=== PATIENT | female | born 1960 | race Caucasian/White ===

== ENCOUNTER 2016-11-20 19:28 | Emergency (ER) | payer MEDICARE, OTHER ==
[2016-11-20 19:34] VITALS: RESP 18; TEMP 98.8
[2016-11-20] MEDS ORDERED: IPRATROPIUM 0.5 MG/2.5 ML NEBU INHALATION STA (19:48)
[2016-11-20] MEDS ORDERED: predniSONE 20 MG TAB PO STA (19:48)
[2016-11-20] MEDS ORDERED: ALBUTEROL NEBULIZED 2.5 MG/3 ML INHALATION STA (19:48)
[2016-11-20] MEDS ORDERED: Acetaminophen-Codeine 300-30mg TAB PO STA (19:52)
--- NOTE | 2016-11-20 19:52 | ED ---
General Adult HPI - General Chief complaint: Shortness of Breath Stated complaint: SOB Time Seen by Provider: 11/20/16 19:40 Source: patient, RN notes reviewed, old records reviewed Mode of arrival: wheelchair Limitations: no limitations - History of Present Illness Initial comments: This is a 56-year-old female to the ER with history of COPD, patient had recent hospital admission a month ago for COPD exacerbation. Patient states she was feeling fine until last night and the night before and basely getting worse over last 2 days. Her exercise tolerance has gone down and despite her home nebulizers. Patient denies any other hmxa-svv-iijorad treatments. Patient denies any fevers no chest pain. Denies sick contacts or travel history. - Related Data Home Medications Medication Instructions Recorded Confirmed FLUoxetine HCL [PROzac] 20 mg PO QAM 05/10/14 11/20/16 Gabapentin [Gabapentin] 800 mg PO BID 05/10/14 11/20/16 Hydrocodone/Acetaminophen [[place] 1 tab PO QID PRN 08/07/16 11/20/16 10-325] Albuterol Nebulized [Ventolin 2.5 mg INHALATION RT-QID PRN 11/20/16 11/20/16 Nebulized] Albuterol Sulfate [Proair Hfa] 1 - 2 puff INHALATION RT-QID PRN 11/20/16 Biotin 5 mg PO DAILY 11/20/16 11/20/16 Dextroamphetamine/Amphetamine 20 mg PO BID 11/20/16 11/20/16 [Adderall] Doxepin HCl [SINEquan] 50 mg PO HS 11/20/16 11/20/16 Multivitamins, Thera [Multivitamin] 1 tab PO DAILY 11/20/16 11/20/16 Allergies Allergy/AdvReac Type Severity Reaction Status Date / Time shellfish derived Allergy Swelling Verified 11/20/16 19:48 Review of Systems ROS Statement: Those systems with pertinent positive or pertinent negative responses have been documented in the HPI. ROS Other: All systems not noted in ROS Statement are negative. Past Medical History Past Medical History: Asthma, COPD, Fibromyalgia Additional Past Medical History / Comment(s): IRREGULAR VAGINAL BLEEDING, STEROIDS WITHIN LAST 3 MOS, neck pain History of Any Multi-Drug Resistant Organisms: MRSA Date of last positivie culture/infection: UNK MDRO Source:: Left axilla Past Surgical History: Orthopedic Surgery, Tonsillectomy, Tubal Ligation Additional Past Surgical History / Comment(s): TOVA SHOULDER,TOVA WRISTS,LT COLLAR BONE Past Anesthesia/Blood Transfusion Reactions: No Reported Reaction Past Psychological History: ADD/ADHD, Anxiety, Depression Smoking Status: Never smoker Past Alcohol Use History: None Reported Past Drug Use History: None Reported - Past Family History Father Family Medical History: Cancer Additional Family Medical History / Comment(s): LUNG General Exam Limitations: no limitations General appearance: alert, in no apparent distress, anxious Head exam: Present: atraumatic, normocephalic, normal inspection Eye exam: Present: normal appearance, PERRL, EOMI. Absent: scleral icterus, conjunctival injection, periorbital swelling ENT exam: Present: normal exam, mucous membranes moist Neck exam: Present: normal inspection. Absent: tenderness, meningismus, lymphadenopathy Respiratory exam: Present: normal lung sounds bilaterally, wheezes, decreased breath sounds, prolonged expiratory. Absent: respiratory distress, rales, rhonchi, stridor Cardiovascular Exam: Present: regular rate, normal rhythm, normal heart sounds. Absent: systolic murmur, diastolic murmur, rubs, gallop, clicks GI/Abdominal exam: Present: soft, normal bowel sounds. Absent: distended, tenderness, guarding, rebound, rigid Extremities exam: Present: normal inspection, full ROM, normal capillary refill. Absent: tenderness, pedal edema, joint swelling, calf tenderness Back exam: Present: normal inspection Neurological exam: Present: alert, oriented X3, CN II-XII intact Psychiatric exam: Present: normal affect, normal mood Skin exam: Present: warm, dry, intact, normal color. Absent: rash Course Vital Signs 11/20/16 11/20/16 11/20/16 19:32 20:10 20:24 Temperature 98.8 F Pulse Rate 86 78 78 Respiratory 18 Rate Blood Pressure 136/65 O2 Sat by Pulse 99 Oximetry - Reevaluation(s) Reevaluation #1: 11/20/16 20:51 At this point patient's symptoms of shortness of breath or much improved after prolonged breathing treatment Medical Decision Making - Medical Decision Making 56 female year for evaluation of shortness of breath, COPD exacerbation, patient is feeling better x-ray is negative for pneumonia, will be treated for COPD exacerbation steroids as an outpatient, return if symptoms worsen - Radiology Data Radiology results: report reviewed (Chest x-ray is negative for acute disease), image reviewed Disposition Clinical Impression: Acute exacerbation of chronic obstructive airways disease Disposition: HOME SELF-CARE Condition: Good Instructions: Chronic Bronchitis (ED), Acute Bronchitis (ED) Referrals: Eric Loo DO [Primary Care Provider] - 1-2 days
--- NOTE | 2016-11-20 20:05 | XR ---
EXAMINATION TYPE: XR chest 2V DATE OF EXAM: 11/20/2016 8:00 PM COMPARISON: 12/28/2015 HISTORY: Short of breath TECHNIQUE: Frontal and lateral views of the chest are obtained. FINDINGS: Heart and mediastinum are normal. Lungs are clear. Diaphragm is normal. Bony thorax is int act. Pulmonary vascularity is normal. IMPRESSION: Normal chest. No change.
[2016-11-20 21:11] VITALS: BP 113/65
[2016-11-20 21:14] VITALS: PULSE 84
== END 2016-11-20 21:20 | disposition home or self-care (01) ==
LOC: EC 19:28
DX: J44.1 Chronic obstructive pulmonary disease with (acute) exacerbation (principal); J20.9 Acute bronchitis, unspecified; J45.909 Unspecified asthma, uncomplicated; M79.7 Fibromyalgia; F90.9 Attention-deficit hyperactivity disorder, unspecified type; F32.9 Major depressive disorder, single episode, unspecified; F41.9 Anxiety disorder, unspecified; Z79.899 Other long term (current) drug therapy; Z91.013 Allergy to seafood
CPT/HCPCS: 94644; 71020; 99285; J7512

== ENCOUNTER 2016-12-23 18:29 | Inpatient (IN) | payer MEDICARE, OTHER ==
[2016-12-23] MEDS ORDERED: methylPREDNISolone SOD SUCCI 125 MG/2 ML VIAL IV STA (18:46)
--- NOTE | 2016-12-23 18:53 | ED ---
General Adult HPI <RubénRonald - Last Filed: 12/23/16 19:46> - General Source: patient, RN notes reviewed, old records reviewed Mode of arrival: EMS Limitations: no limitations <Tawanda Rothman - Last Filed: 12/23/16 19:48> - General Chief complaint: Shortness of Breath Stated complaint: ANATOLIY Time Seen by Provider: 12/23/16 18:33 - History of Present Illness Initial comments: Patient 56-year-old female with significant past medical history for COPD, who presents emergency room today by EMS, with chief complaint of increased shortness breath with cough congestion over the last few days. Does admit to positive sputum production as been yellow in color. Patient does admit that she 's been using breathing treatments at home. Patient was given breathing treatment by EMS. States treatments have been helping some. States does not last very long. Patient states she's had multiple treatments today with little relief of the symptoms. Patient denies any other complaints or associated symptoms. Patient denies any recent chills, chest pain, back pain, abdominal pain, nausea or vomiting, numbness or tingling, dysuria or hematuria, constipation or diarrhea, headaches or visual changes, or any other complaints. (Tawanda Rothman) - Related Data Home Medications Medication Instructions Recorded Confirmed Gabapentin [Gabapentin] 800 mg PO TID 05/10/14 12/23/16 Hydrocodone/Acetaminophen [[place] 1 tab PO QID PRN 08/07/16 12/23/16 10-325] Albuterol Nebulized [Ventolin 2.5 mg INHALATION RT-QID PRN 11/20/16 12/23/16 Nebulized] Albuterol Sulfate [Proair Hfa] 1 - 2 puff INHALATION RT-QID PRN 11/20/16 Biotin 5 mg PO DAILY 11/20/16 12/23/16 Dextroamphetamine/Amphetamine 20 mg PO BID 11/20/16 12/23/16 [Adderall] Doxepin HCl [SINEquan] 50 mg PO HS 11/20/16 12/23/16 FLUoxetine HCL [PROzac] 40 mg PO DAILY 12/23/16 12/23/16 Multivits-Min/Iron/FA/Lutein 1 tab PO DAILY 12/23/16 12/23/16 [Centrum Silver Women Tablet] Allergies Allergy/AdvReac Type Severity Reaction Status Date / Time shellfish derived Allergy Itching Verified 12/23/16 18:53 shrimp AdvReac Itching Verified 12/23/16 18:53 Review of Systems ROS Other: All systems not noted in ROS Statement are negative. <MontanaRonald - Last Filed: 12/23/16 19:46> ROS Other: All systems not noted in ROS Statement are negative. <Tawanda Rothman - Last Filed: 12/23/16 19:48> ROS Statement: Those systems with pertinent positive or pertinent negative responses have been documented in the HPI. Past Medical History Past Medical History: Asthma, COPD, Fibromyalgia Additional Past Medical History / Comment(s): IRREGULAR VAGINAL BLEEDING, STEROIDS WITHIN LAST 3 MOS, neck pain History of Any Multi-Drug Resistant Organisms: MRSA Date of last positivie culture/infection: UNK MDRO Source:: Left axilla Past Surgical History: Orthopedic Surgery, Tonsillectomy, Tubal Ligation Additional Past Surgical History / Comment(s): TOVA SHOULDER,TOVA WRISTS,LT COLLAR BONE Past Anesthesia/Blood Transfusion Reactions: No Reported Reaction Past Psychological History: ADD/ADHD, Anxiety, Depression Smoking Status: Never smoker Past Alcohol Use History: None Reported Past Drug Use History: None Reported - Past Family History Father Family Medical History: Cancer Additional Family Medical History / Comment(s): LUNG <RothmanTawanda - Last Filed: 12/23/16 19:48> General Exam <Ronald Montana - Last Filed: 12/23/16 19:46> Limitations: no limitations <Tawanda Rothman - Last Filed: 12/23/16 19:48> - General Exam Comments Initial Comments: General: The patient is awake and alert, in no distress, and does not appear acutely ill. Eye: Pupils are equal, round and reactive to light, extra-ocular movements are intact. No nystagmus. There is normal conjunctiva bilaterally. No signs of icterus. Ears, nose, mouth and throat: There are moist mucous membranes and no oral lesions. Neck: The neck is supple, there is no tenderness or JVD. Cardiovascular: There is a regular rate and rhythm. No murmur, rub or gallop is appreciated. Respiratory: Bilateral expiratory wheeze with scattered rhonchi. respirations are non-labored, breath sounds are equal. No wheezes, stridor, rales, or rhonchi. Gastrointestinal: Soft, non-distended, non-tender abdomen without masses or organomegaly noted. There is no rebound or guarding present. No CVA tenderness. Bowel sounds are unremarkable. Musculoskeletal: Normal ROM, no tenderness. Strength 5/5. Sensation intact. Pulses equal bilaterally 2+. Neurological: A&O x 3. CN II-XII intact, There are no obvious motor or sensory deficits. Coordination appears grossly intact. Speech is normal. Skin: Skin is warm and dry and no rashes or lesions are noted. Psychiatric: Cooperative, appropriate mood & affect, normal judgment. (Tawanda Rothman) Course <Ronald Montana - Last Filed: 12/23/16 19:46> <Tawanda Rothman - Last Filed: 12/23/16 19:48> Vital Signs 12/23/16 18:30 Temperature 101.3 F H Pulse Rate 88 Respiratory 16 Rate Blood Pressure 140/76 O2 Sat by Pulse 97 Oximetry - Reevaluation(s) Reevaluation #1: 12/23/16 19:46 Patient reevaluated by myself, Dr. Montana. Patient still has wheezing despite 2 treatments. Patient does not meet sepsis criteria as source of infection is not identifiable at this time. Case discussed in detail with Dr. funes, who will admit for Dr. Loo. (Ronald Montana) Medical Decision Making - Lab Data Result diagrams: 12/23/16 18:55 12/23/16 18:55 <Ronald Montana - Last Filed: 12/23/16 19:46> - Lab Data Result diagrams: 12/23/16 18:55 12/23/16 18:55 <Tawanda Rothman - Last Filed: 12/23/16 19:48> - Lab Data Lab Results 12/23/16 12/23/16 12/23/16 Range/Units 18:55 18:55 18:55 WBC 5.0 (3.8-10.6) k/uL RBC 4.33 (3.80-5.40) m/uL Hgb 12.3 (11.4-16.0) gm/dL Hct 37.6 (34.0-46.0) % MCV 86.9 (80.0-100.0) fL MCH 28.5 (25.0-35.0) pg MCHC 32.8 (31.0-37.0) g/dL RDW 13.5 (11.5-15.5) % Plt Count 221 (150-450) k/uL Neutrophils % 56 % Lymphocytes % 25 % Monocytes % 6 % Eosinophils % 9 % Basophils % 0 % Neutrophils # 2.8 (1.3-7.7) k/uL Lymphocytes # 1.2 (1.0-4.8) k/uL Monocytes # 0.3 (0-1.0) k/uL Eosinophils # 0.5 (0-0.7) k/uL Basophils # 0.0 (0-0.2) k/uL Sodium 140 (137-145) mmol/L Potassium 3.5 (3.5-5.1) mmol/L Chloride 102 (98-107) mmol/L Carbon Dioxide 27 (22-30) mmol/L Anion Gap 11 mmol/L BUN 15 (7-17) mg/dL Creatinine 0.79 (0.52-1.04) mg/dL Est GFR (MDRD) Af Amer >60 (>60 ml/min/1.73 sqM) Est GFR (MDRD) Non-Af >60 (>60 ml/min/1.73 sqM) Glucose 96 (74-99) mg/dL Plasma Lactic Acid Gurvinder (0.7-2.0) mmol/L Calcium 9.1 (8.4-10.2) mg/dL Total Bilirubin 0.5 (0.2-1.3) mg/dL AST 26 (14-36) U/L ALT 26 (9-52) U/L Alkaline Phosphatase 106 (38-126) U/L Total Protein 7.2 (6.3-8.2) g/dL Albumin 4.0 (3.5-5.0) g/dL Influenza Type A RNA Not Detected (Not Detectd) Influenza Type B (PCR) Not Detected (Not Detectd) 12/23/16 Range/Units 18:55 WBC (3.8-10.6) k/uL RBC (3.80-5.40) m/uL Hgb (11.4-16.0) gm/dL Hct (34.0-46.0) % MCV (80.0-100.0) fL MCH (25.0-35.0) pg MCHC (31.0-37.0) g/dL RDW (11.5-15.5) % Plt Count (150-450) k/uL Neutrophils % % Lymphocytes % % Monocytes % % Eosinophils % % Basophils % % Neutrophils # (1.3-7.7) k/uL Lymphocytes # (1.0-4.8) k/uL Monocytes # (0-1.0) k/uL Eosinophils # (0-0.7) k/uL Basophils # (0-0.2) k/uL Sodium (137-145) mmol/L Potassium (3.5-5.1) mmol/L Chloride (98-107) mmol/L Carbon Dioxide (22-30) mmol/L Anion Gap mmol/L BUN (7-17) mg/dL Creatinine (0.52-1.04) mg/dL Est GFR (MDRD) Af Amer (>60 ml/min/1.73 sqM) Est GFR (MDRD) Non-Af (>60 ml/min/1.73 sqM) Glucose (74-99) mg/dL Plasma Lactic Acid Gurvinder 0.9 (0.7-2.0) mmol/L Calcium (8.4-10.2) mg/dL Total Bilirubin (0.2-1.3) mg/dL AST (14-36) U/L ALT (9-52) U/L Alkaline Phosphatase (38-126) U/L Total Protein (6.3-8.2) g/dL Albumin (3.5-5.0) g/dL Influenza Type A RNA (Not Detectd) Influenza Type B (PCR) (Not Detectd) Disposition <Ronald Montana - Last Filed: 12/23/16 19:46> Time of Disposition: 19:41 <Tawanda Rothman - Last Filed: 12/23/16 19:48> Clinical Impression: COPD exacerbation Disposition: ADMITTED IP TO THIS HOSP Condition: Stable
[2016-12-23] MEDS ORDERED: IPRATROPIUM-ALBUTEROL 3 ML NEB INHALATION STA (19:02)
[2016-12-23 19:10] LABS: Basophils % (A) 0 %; CH 28.1; CHCM 32.5; Eosinophils # (A) 0.5 k/uL (0-0.7); Eosinophils % (A) 9 %; HCT 37.6 % (34.0-46.0); HGB 12.3 gm/dL (11.4-16.0); Luc # (Auto) 0.22; Luc % (Auto) 4; Lymphocytes # (A) 1.2 k/uL (1.0-4.8); Lymphocytes % (A) 25 %; MCH 28.5 pg (25.0-35.0); MCHC 32.8 g/dL (31.0-37.0); MCV 86.9 fL (80.0-100.0); Mean Platelet Volume 6.8; Monocytes # (A) 0.3 k/uL (0-1.0); Monocytes % (A) 6 %; Neutrophils # (A) 2.8 k/uL (1.3-7.7); Neutrophils % (A) 56 %; RBC 4.33 m/uL (3.80-5.40); RDW 13.5 % (11.5-15.5); WBC (Perox) 5.14
[2016-12-23 19:17] LABS: ALT 26 U/L (9-52); AST 26 U/L (14-36); Alkaline Phosphatase 106 U/L (38-126); Anion Gap 11 mmol/L; Blood Urea Nitrogen 15 mg/dL (7-17); Calcium 9.1 mg/dL (8.4-10.2); Carbon Dioxide 27 mmol/L (22-30); Chloride 102 mmol/L (98-107); Glucose 96 mg/dL (74-99); Non-African American GFR(MDRD) >60 (>60 ml/min/1.73 sqM); Potassium 3.5 mmol/L (3.5-5.1); Sodium 140 mmol/L (137-145); Total Bilirubin 0.5 mg/dL (0.2-1.3); Total Protein 7.2 g/dL (6.3-8.2)
--- NOTE | 2016-12-23 19:18 | XR ---
EXAMINATION TYPE: XR chest 2V DATE OF EXAM: 12/23/2016 7:13 PM COMPARISON: 11/20/16 HISTORY: Shortness of breath TECHNIQUE: Frontal and lateral views of the chest are obtained. FINDINGS: Scattered senescent parenchymal changes noted. Hyperinflation compatible with COPD. No evidence for infiltrate. No evidence for atelectasis. Heart size is stable. Mediastinal structures are stable and grossly unremarkable. No evidence for hilar prominence. Degenerative changes dorsal spine. IMPRESSION: 1. No evidence for acute pulmonary disease.
[2016-12-23] MEDS ORDERED: ACETAMINOPHEN TAB 500 MG TAB PO STA (19:22)
[2016-12-23] MEDS ORDERED: SODIUM CHLORIDE 0.9% 1,000 ML IV ONE (19:45)
[2016-12-23 20:12] LABS: Appearance,Urine Clear (Clear); Bacteria,Urine Occasional /hpf; Bilirubin,Urine Negative (Negative); Glucose,Urine (UA) Negative (Negative); Ketones,Urine Negative (Negative); Leukocyte Esterase,Urine Large (Negative); Mucus,Urine Rare /hpf; Nitrite,Urine Negative (Negative); Particle Count 4196; Protein,Urine Trace (Negative); RBC,Urine 5 /hpf (0-5); Specific Gravity,Urine 1.025 (1.001-1.035); Squamous Epithelial Cell,Urine 1 /hpf (0-4); UA Billing (MACRO vs. MICRO) MICRO; Urobilinogen,Urine <2.0 mg/dL (<2.0); WBC,Urine 58 /hpf (0-5)
[2016-12-23 22:06] VITALS: BMI 25.8
[2016-12-23] MEDS: GABAPENTIN 400 MG CAP PO SCH (23:24)
[2016-12-23] MEDS: HYDROcodone/APAP 10-325MG 1 EACH TAB PO PRN (23:24)
[2016-12-23] MEDS: MULTIVITAMINS, THERA 1 EACH TAB PO SCH (23:25)
[2016-12-23] MEDS: DOXEPIN 25 MG CAP PO SCH (23:25)
[2016-12-23] MEDS: LEVOFLOXACIN 500 MG TAB PO SCH (23:58)
[2016-12-24] MEDS: methylPREDNISolone SOD SUCCI 125 MG/2 ML VIAL IV SCH ×4 (00:01→16:59)
[2016-12-24] MEDS: IPRATROPIUM-ALBUTEROL 3 ML NEB INHALATION PRN ×2 (00:56→11:23)
[2016-12-24] MEDS: HYDROcodone/APAP 10-325MG 1 EACH TAB PO PRN ×3 (05:35→19:52)
[2016-12-24] MEDS: BENZOCAINE/MENTHOL LOZENG 1 EACH LOZENGE MUCOUS MEM PRN (06:16)
[2016-12-24] MEDS: MULTIVITAMINS, THERA 1 EACH TAB PO SCH (08:31)
[2016-12-24] MEDS: GABAPENTIN 400 MG CAP PO SCH ×3 (08:32→22:27)
[2016-12-24] MEDS: FLUoxetine HCL 20 MG CAP PO SCH (08:32)
[2016-12-24] MEDS ORDERED: NON-FORMULARY DRUG (Biotin [Biotin] 5 MG) PO SCH (09:00)
[2016-12-24] MEDS ORDERED: NON-FORMULARY DRUG (Dextroamphetamine/Amphetamine [Adderall] 20 MG) PO SCH (09:00)
[2016-12-24] MEDS ORDERED: IPRATROPIUM-ALBUTEROL 3 ML NEB INHALATION PRN (13:24)
--- NOTE | 2016-12-24 13:25 | P.CNPUL ---
History of Present Illness Consult date: 12/24/16 Requesting physician: Italo Mallory Reason for consult: dyspnea Chief complaint: Shortness of breath History of present illness: This is a very pleasant 56-year-old female patient who follows with Dr. Loo as her primary care physician. She has a history of fibromyalgia, ADHD, anxiety/ depression,and suspected COPD. She has had recent admissions to [facility] for COPD exacerbation. However the patient is a lifelong nonsmoker. She believes she may have had asthma as a child but has not really been diagnosed with that lately.while at [facility] she was treated with IV Solu-Medrol and subsequent prednisone taper. She's been seen in our office 1 time since then was also treated with steroids and does quite well. Unfortunately, soon as his steroids are tapered down and off she's been having exacerbations. She is quite dyspneic on minimal exertion. She feels as though she could almost passed out from her shortness of breath at times. Currently, she is dyspneic on minimal exertion. She is quite bronchospastic and wheezy. Her chest x-ray reveals no evidence of acute pulmonary disease. She did present with a T-max of 101.3. She is maintaining O2 saturations in the 90s on room air. She's been hemodynamically stable. No significant tachycardia. No tachypnea. No leukocytosis. Influenza screen is negative. Review of Systems 14 point review of system was conducted. All negative other than as mentioned in HPI. Past Medical History Past Medical History: Asthma, COPD, Fibromyalgia Additional Past Medical History / Comment(s): IRREGULAR VAGINAL BLEEDING, STEROIDS WITHIN LAST 3 MOS, neck pain History of Any Multi-Drug Resistant Organisms: MRSA Date of last positivie culture/infection: UNK MDRO Source:: Left axilla Past Surgical History: Orthopedic Surgery, Tonsillectomy, Tubal Ligation Additional Past Surgical History / Comment(s): TOVA SHOULDER,TOVA WRISTS,LT COLLAR BONE, MRSA on side 8-10years ago Past Anesthesia/Blood Transfusion Reactions: No Reported Reaction Past Psychological History: ADD/ADHD, Anxiety, Depression Smoking Status: Never smoker Past Alcohol Use History: None Reported Past Drug Use History: None Reported - Past Family History Father Family Medical History: Cancer Additional Family Medical History / Comment(s): LUNG Medications and Allergies Home Medications Medication Instructions Recorded Confirmed Type Gabapentin [Gabapentin] 800 mg PO TID 05/10/14 12/23/16 History Hydrocodone/Acetaminophen [[place] 1 tab PO QID PRN 08/07/16 12/23/16 History 10-325] Albuterol Nebulized [Ventolin 2.5 mg INHALATION RT-QID PRN 11/20/16 12/23/16 History Nebulized] Albuterol Sulfate [Proair Hfa] 1 - 2 puff INHALATION RT-QID PRN 11/20/16 History Biotin 5 mg PO DAILY 11/20/16 12/23/16 History Dextroamphetamine/Amphetamine 20 mg PO BID 11/20/16 12/23/16 History [Adderall] Doxepin HCl [SINEquan] 50 mg PO HS 11/20/16 12/23/16 History FLUoxetine HCL [PROzac] 40 mg PO DAILY 12/23/16 12/23/16 History Multivits-Min/Iron/FA/Lutein 1 tab PO DAILY 12/23/16 12/23/16 History [Centrum Silver Women Tablet] Allergies Allergy/AdvReac Type Severity Reaction Status Date / Time shellfish derived Allergy Itching Verified 12/23/16 18:53 shrimp AdvReac Itching Verified 12/23/16 18:53 Physical Exam Vitals: Vital Signs Temp Pulse Pulse Resp BP BP Pulse Ox 12/24/16 11:34 96 12/24/16 11:23 90 12/24/16 08:00 16 12/24/16 07:00 97.9 F 74 16 94/60 95 12/24/16 01:05 76 12/24/16 00:57 84 12/23/16 23:55 84 16 12/23/16 21:07 99.1 F 84 16 127/59 92 L 12/23/16 21:00 101.3 F H 86 18 137/78 98 Intake and Output 12/23/16 12/24/16 12/24/16 22:59 06:59 14:59 Intake Total 700 700 Balance 700 700 Intake: Intake, IV Titration 300 700 Amount Sodium Chloride 0.9% 1, 300 700 000 ml @ 100 mls/hr IV . Q10H ONE Rx#:[id number] Oral 400 Other: Voiding Method Toilet Toilet # Voids 2 2 Weight 72.575 kg GENERAL EXAM: Alert, active, comfortable in no apparent distress. HEAD: Normocephalic. EYES: Normal reaction of pupils, equal size. NOSE: Clear with pink turbinates. THROAT: No erythema or exudates. NECK: No masses, no JVD. CHEST: No chest wall deformity. LUNGS: Equal air entry with bilateral end expiratory wheezing. Diminished throughout.. CVS: S1 and S2 normal with no audible murmurs, regular rhythm. ABDOMEN: No hepatosplenomegaly, normal bowel sounds, no guarding or rigidity. SPINE: No scoliosis or deformity SKIN: No rashes CENTRAL NERVOUS SYSTEM: No focal deficits, tone is normal in all 4 extremities. Extremities: There is no peripheral edema. No clubbing, no cyanosis. Peripheral pulses are intact. Results - Laboratory Findings CBC and BMP: 12/23/16 18:55 12/23/16 18:55 - Diagnostic Findings Chest x-ray: image reviewed (No acute pulmonary process.) Assessment and Plan Plan: Impression: #1 Acute exacerbation of chronic obstructive pulmonary disease. #2 Recent admission for acute exacerbation of chronic obstructive pulmonary disease. The patient is a lifelong nonsmoker however. #3 Fibromyalgia. #4 History of ADHD. 5 Anxiety/depression. Plan: The patient was seen and evaluated by Dr. Rizzo. Her chest x-ray and labs were reviewed. We'll continue to treat her for COPD exacerbation. We will adjust her bronchodilators to 4 times a day and when necessary, add Pulmicort and Perforomist inhalations twice a day, continue IV Solu-Medrol, continue empiric antibiotics in the form of Levaquin. We may may need to consider bronchoscopy with BAL based on her current exacerbations and the fact that she responds well to steroids. We'll continue to follow make further recommendations based on her clinical status. Time with Patient: Greater than 30
[2016-12-24] MEDS: ENOXAPARIN 40 MG/0.4 ML SYRINGE SQ SCH (14:24)
[2016-12-24] MEDS: LORATADINE-PSEUDOEPH 5-120 MG 1 EACH TAB.ER.12H PO SCH ×2 (14:24→20:36)
--- NOTE | 2016-12-24 15:17 | HP ---
DATE OF ADMISSION: 12/23/2016 PRESENTING COMPLAINT: Wheezing. HISTORY OF PRESENTING COMPLAINT: A very pleasant 56-year-old patient of Dr. Loo whose chronic stable medical conditions include fibromyalgia, ADHD, anxiety. For about a year, has been having episodes of getting short of breath, wheezing. Did see Dr. Rodriguez recently was given a course of steroids and feels better yet again for loss for 5 days become more and more short of breath, wheezing, got a fever, cough, decreased appetite, rundown and came in again to the hospital, did feel a bit better with bronchodilators. REVIEW OF SYSTEMS: CONSTITUTIONAL: Tired, fever. HEENT: Nasal stuffiness which is chronic. RESPIRATORY: As above. CARDIOVASCULAR: None. GASTROINTESTINAL: None. GENITOURINARY: None. MUSCULOSKELETAL: Aches and pains in the joints. DERMATOLOGICAL: None. HEMATOLOGICAL: None. LYMPHATIC: None. PSYCHIATRY: Anxiety, some depression. NEUROLOGICAL: None. PAST HISTORY: Fibromyalgia, ADHD, anxiety, some asthma, axilla MRSA infection. PAST SURGICAL HISTORY: Tonsillectomy, tubal ligation, bilateral shoulder surgery, bilateral wrist surgery, left collarbone surgery. Past psych history of ADHD, anxiety, depression. SOCIAL HISTORY: No smoking. Lives by herself. No alcohol. Family history of lung cancer. HOME MEDICATIONS: 1. Centrum Silver 1 tablet a day. 2. Prozac 40 mg p.o. daily. 3. [place] 50 mg p.o. q.h.s. 4. Adderall 20 mg p.o. b.i.d. 5. ProAir 1 to 2 puffs q.i.d. p.r.n. 6. Ventolin 2.5 q.i.d. p.r.n. 7. [place] 10 one tablets q.i.d. p.r.n. 8. Neurontin 800 mg p.o. t.i.d. Allergies to SHRIMP and SHELLFISH. On examination, vital signs on presentation: Temperature 101.3, pulse 88, respirations 16, blood pressure 140/76, pulse ox 97% on room air. GENERAL APPEARANCE: Average build, sitting up, tired -appearing. EYES: Pupils equal. Conjunctivae normal. HEENT: Oral cavity normal. NECK: JVD not raised. Mass not palpable. Respiratory effort increased. LUNGS: Some expiratory wheezing, some crackles in the right middle lobe posteriorly. CARDIOVASCULAR: First and second sounds normal. No edema. ABDOMEN: Soft, nontender. Liver and spleen not palpable. LYMPHATIC: No lymph nodes palpable in neck or axillae. PSYCHIATRY: Alert and oriented x3. Mood is slightly anxious-appearing. NEUROLOGICAL: Pupils equal. Cranial nerves grossly intact. Power and sensation grossly intact. INVESTIGATIONS: White count 5 hemoglobin 12.3, potassium 3.5, BUN 15, creatinine 0.79. UA showed positive for leukocyte esterase and WBC. Influenza A and B negative. Chest x-ray shows infiltrate in right middle lobe. ASSESSMENT: 1. This is a patient who presents with fever, cough, wheezing, clear sputum, appears to be acute pneumonitis, cannot rule out a gram-negative organism. Hence, the patient will be put on Levaquin. The patient may be having reactive bronchospasm or a late-onset asthma. It appears patient has chronic sinus trouble and will do a plain X-ray of the sinuses to look for chronic sinusitis. Will also give patient Claritin-D. 2. Fibromyalgia. 3. Attention deficit hyperactivity disorder. 4. Anxiety. PLAN: See above see. Patient is on steroids, nebulized bronchodilators, Claritin-D. Will get sinus x-rays sinus x-rays.
--- NOTE | 2016-12-24 15:51 | XR ---
EXAMINATION TYPE: XR sinus DATE OF EXAM: 12/24/2016 3:44 PM CLINICAL HISTORY: pain Four views of the paranasal sinuses are submitted. Paranasal sinuses demonstrate normal aeration and development. No air-fluid levels are seen. There is no evidence for mucosal thickening. Nasal sep juwan is mildly deviated left to right. No evidence for bony destructive process. IMPRESSION: Mild nasal septal deviation. Otherwise unremarkable study.
[2016-12-24] MEDS ORDERED: IPRATROPIUM-ALBUTEROL 3 ML NEB INHALATION SCH (16:00)
[2016-12-24] MEDS: IPRATROPIUM-ALBUTEROL 3 ML NEB INHALATION SCH ×2 (16:11→19:24)
[2016-12-24] MEDS: FORMOTEROL FUMARATE 20 MCG/2 ML NEBU INHALATION SCH (19:24)
[2016-12-24] MEDS: BUDESONIDE 1 MG/2 ML NEBU INHALATION SCH (19:24)
[2016-12-24] MEDS: LEVOFLOXACIN 500 MG TAB PO SCH (20:36)
[2016-12-24] MEDS: DOXEPIN 25 MG CAP PO SCH (20:36)
[2016-12-24] MEDS: MELATONIN 3 MG TABLET PO SCH (22:27)
[2016-12-25] MEDS ORDERED: methylPREDNISolone SOD SUCCI 125 MG/2 ML VIAL ONE
[2016-12-25] MEDS ORDERED: HYDROcodone/APAP 10-325MG 1 EACH TAB ONE
[2016-12-25] MEDS: methylPREDNISolone SOD SUCCI 125 MG/2 ML VIAL IV SCH ×4 (04:50→20:56)
[2016-12-25] MEDS: HYDROcodone/APAP 10-325MG 1 EACH TAB PO PRN ×3 (07:26→22:54)
[2016-12-25] MEDS: FLUoxetine HCL 20 MG CAP PO SCH (07:29)
[2016-12-25] MEDS: GABAPENTIN 400 MG CAP PO SCH ×3 (07:29→20:53)
[2016-12-25] MEDS: ENOXAPARIN 40 MG/0.4 ML SYRINGE SQ SCH (07:29)
[2016-12-25] MEDS: MULTIVITAMINS, THERA 1 EACH TAB PO SCH (07:29)
[2016-12-25] MEDS: LORATADINE-PSEUDOEPH 5-120 MG 1 EACH TAB.ER.12H PO SCH ×2 (07:29→20:54)
[2016-12-25] MEDS: BUDESONIDE 1 MG/2 ML NEBU INHALATION SCH ×2 (09:21→19:35)
[2016-12-25] MEDS: FORMOTEROL FUMARATE 20 MCG/2 ML NEBU INHALATION SCH ×2 (09:22→19:35)
[2016-12-25] MEDS: IPRATROPIUM-ALBUTEROL 3 ML NEB INHALATION SCH ×4 (09:22→19:35)
--- NOTE | 2016-12-25 13:33 | P.PN ---
Subjective This is a very pleasant 56-year-old female patient who follows with Dr. Loo as her primary care physician. She has a history of fibromyalgia, ADHD, anxiety/ depression,and suspected COPD. She has had recent admissions to [facility] for COPD exacerbation. However the patient is a lifelong nonsmoker. She believes she may have had asthma as a child but has not really been diagnosed with that lately.while at [facility] she was treated with IV Solu-Medrol and subsequent prednisone taper. She's been seen in our office 1 time since then was also treated with steroids and does quite well. Unfortunately, soon as his steroids are tapered down and off she's been having exacerbations. She is quite dyspneic on minimal exertion. She feels as though she could almost passed out from her shortness of breath at times. Currently, she is dyspneic on minimal exertion. She is quite bronchospastic and wheezy. Her chest x-ray reveals no evidence of acute pulmonary disease. She did present with a T-max of 101.3. She is maintaining O2 saturations in the 90s on room air. She's been hemodynamically stable. No significant tachycardia. No tachypnea. No leukocytosis. Influenza screen is negative. The patient is seen again today 12/25/2016 in follow-up on the regular medical floor. She is awake and alert in no acute distress. She states she is breathing easier today as compared to yesterday. She is less bronchospastic and wheezy. She is maintaining good O2 saturations in the mid 90s on room air. Objective - Vital Signs Vital signs: Vital Signs Temp 96.9 F L 12/25/16 07:00 Pulse 96 12/25/16 12:09 Resp 16 12/25/16 08:00 BP 124/72 12/25/16 07:00 Pulse Ox 94 L 12/25/16 07:00 Intake & Output 12/24/16 12/25/16 12/25/16 18:59 06:59 18:59 Intake Total 940 1070 Balance 940 1070 Weight 72.575 kg Intake: Intake, IV Titration 700 Amount Sodium Chloride 0.9% 1, 700 000 ml @ 100 mls/hr IV . Q10H ONE Rx#:[id number] Oral 240 1070 Other: Voiding Method Toilet Toilet Toilet # Voids 2 1 1 - Exam GENERAL EXAM: Alert, active, comfortable in no apparent distress. HEAD: Normocephalic. EYES: Normal reaction of pupils, equal size. NOSE: Clear with pink turbinates. THROAT: No erythema or exudates. NECK: No masses, no JVD. CHEST: No chest wall deformity. LUNGS: Equal air entry with bilateral end expiratory wheezing. Diminished throughout.. CVS: S1 and S2 normal with no audible murmurs, regular rhythm. ABDOMEN: No hepatosplenomegaly, normal bowel sounds, no guarding or rigidity. SPINE: No scoliosis or deformity SKIN: No rashes CENTRAL NERVOUS SYSTEM: No focal deficits, tone is normal in all 4 extremities. Extremities: There is no peripheral edema. No clubbing, no cyanosis. Peripheral pulses are intact. - Labs CBC & Chem 7: 12/23/16 18:55 12/23/16 18:55 Assessment and Plan Plan: Impression: #1 Acute exacerbation of chronic obstructive pulmonary disease. #2 Recent admission for acute exacerbation of chronic obstructive pulmonary disease. #3 Fibromyalgia. #4 History of ADHD. #5 Anxiety/depression. Plan: The patient was seen and evaluated by Dr. Rizzo. The patient is improved today as compared to yesterday. We will continue with her current medications. We will increase her activity as tolerated. We'll continue to follow. Most likely ready for discharge within the next 24 hours.
[2016-12-25] MEDS: DOXEPIN 25 MG CAP PO SCH (20:52)
[2016-12-25] MEDS: LEVOFLOXACIN 500 MG TAB PO SCH (20:53)
[2016-12-25 20:54] LABS: Glucose,Whole Blood 155 mg/dL (75-99)
[2016-12-25] MEDS: MELATONIN 3 MG TABLET PO SCH (22:13)
--- NOTE | 2016-12-25 22:27 | PN ---
DATE OF SERVICE: 12/25/2016 PRESENTING COMPLAINT: Wheezing. INTERVAL HISTORY: This is a patient admitted with cough, wheezing, felt to have pneumonitis, getting antibiotics, bronchodilators, still having some wheezing. Nasal stuffiness a bit better. Review of systems done for constitutional, cardiovascular, GI, pulmonary; relevant findings as above. Current medications are reviewed that include: 1. Nebulized bronchodilators. 2. Steroids. 3. Claritin-D. On examination, temperature 96.9, pulse 59, respirations 16, blood pressure 120/70, pulse ox 93% on room air. GENERAL APPEARANCE: Sitting up, not in distress. EYES: Pupils equal. Conjunctivae normal. NECK: JVD not raised. Mass not palpable. RESPIRATORY: Effort normal. LUNGS: Decreased breath sounds and wheezing. CARDIOVASCULAR: First and second sounds normal. No edema. ABDOMEN: Soft, nontender. Liver and spleen not palpable. PSYCHIATRY: Alert and oriented x3. Mood and affect anxious-appearing. INVESTIGATIONS: No blood work from today. Urine culture: No growth. Sinus x-rays are unremarkable. ASSESSMENT: 1. Possibly acute pneumonitis. Cannot rule out a gram-negative organism with severe bronchospasm or late-onset asthma. 2. Fibromyalgia. 3. Attention deficit hyperactivity disorder. 4. Anxiety. PLAN: Continue current medication and treatment plan. Care was discussed with the patient. Follow.
[2016-12-26] MEDS: methylPREDNISolone SOD SUCCI 40 MG/ML 1 ML VIAL IV SCH ×3 (00:14→16:30)
[2016-12-26] MEDS: HYDROcodone/APAP 10-325MG 1 EACH TAB PO PRN ×3 (05:47→17:59)
[2016-12-26] MEDS: BENZOCAINE/MENTHOL LOZENG 1 EACH LOZENGE MUCOUS MEM PRN (05:50)
[2016-12-26] MEDS: IPRATROPIUM-ALBUTEROL 3 ML NEB INHALATION SCH ×4 (07:26→20:20)
[2016-12-26] MEDS: FORMOTEROL FUMARATE 20 MCG/2 ML NEBU INHALATION SCH ×2 (07:26→20:20)
[2016-12-26] MEDS: BUDESONIDE 1 MG/2 ML NEBU INHALATION SCH ×2 (07:26→20:20)
[2016-12-26 07:42] LABS: Glucose,Whole Blood 104 mg/dL (75-99)
[2016-12-26] MEDS: INSULIN LISPRO (humaLOG) 300 UNIT/3 ML VIAL SQ SCH ×4 (08:27→20:13)
[2016-12-26] MEDS: ENOXAPARIN 40 MG/0.4 ML SYRINGE SQ SCH (08:28)
[2016-12-26] MEDS: LORATADINE-PSEUDOEPH 5-120 MG 1 EACH TAB.ER.12H PO SCH ×2 (08:28→20:11)
[2016-12-26] MEDS: GABAPENTIN 400 MG CAP PO SCH ×3 (08:28→21:30)
[2016-12-26] MEDS: FLUoxetine HCL 20 MG CAP PO SCH (08:28)
[2016-12-26] MEDS: MULTIVITAMINS, THERA 1 EACH TAB PO SCH (08:29)
[2016-12-26 10:52] LABS: Hemoglobin A1C 5.8 % (4.2-6.1)
[2016-12-26 11:40] LABS: Glucose,Whole Blood 121 mg/dL (75-99)
--- NOTE | 2016-12-26 12:00 | P.PN ---
Subjective This is a very pleasant 56-year-old female patient who follows with Dr. Loo as her primary care physician. She has a history of fibromyalgia, ADHD, anxiety/ depression,and suspected COPD. She has had recent admissions to [facility] for COPD exacerbation. However the patient is a lifelong nonsmoker. She believes she may have had asthma as a child but has not really been diagnosed with that lately.while at [facility] she was treated with IV Solu-Medrol and subsequent prednisone taper. She's been seen in our office 1 time since then was also treated with steroids and does quite well. Unfortunately, soon as his steroids are tapered down and off she's been having exacerbations. She is quite dyspneic on minimal exertion. She feels as though she could almost passed out from her shortness of breath at times. Currently, she is dyspneic on minimal exertion. She is quite bronchospastic and wheezy. Her chest x-ray reveals no evidence of acute pulmonary disease. She did present with a T-max of 101.3. She is maintaining O2 saturations in the 90s on room air. She's been hemodynamically stable. No significant tachycardia. No tachypnea. No leukocytosis. Influenza screen is negative. The patient is seen again today 12/25/2016 in follow-up on the regular medical floor. She is awake and alert in no acute distress. She states she is breathing easier today as compared to yesterday. She is less bronchospastic and wheezy. She is maintaining good O2 saturations in the mid 90s on room air. The patient is seen again today in the 2016 in follow-up. She is awake and alert in no acute distress. Unfortunately she continues to have significant wheezing and dyspnea on minimal exertion. She has a loose nonproductive cough. Objective - Vital Signs Vital signs: Vital Signs Temp 96.9 F L 12/26/16 07:00 Pulse 80 12/26/16 11:08 Resp 16 12/26/16 07:00 BP 143/74 12/26/16 07:00 Pulse Ox 94 L 12/26/16 07:29 Intake & Output 12/25/16 12/26/16 12/26/16 18:59 06:59 18:59 Intake Total 800 990 480 Balance 800 990 480 Weight 72.575 kg 72.575 kg Intake: Oral 800 990 480 Other: Voiding Method Toilet Toilet Toilet # Voids 3 2 # Bowel Movements 1 1 - Exam GENERAL EXAM: Alert, active, comfortable in no apparent distress. HEAD: Normocephalic. EYES: Normal reaction of pupils, equal size. NOSE: Clear with pink turbinates. THROAT: No erythema or exudates. NECK: No masses, no JVD. CHEST: No chest wall deformity. LUNGS: Equal air entry with bilateral end expiratory wheezing. Diminished throughout.. CVS: S1 and S2 normal with no audible murmurs, regular rhythm. ABDOMEN: No hepatosplenomegaly, normal bowel sounds, no guarding or rigidity. SPINE: No scoliosis or deformity SKIN: No rashes CENTRAL NERVOUS SYSTEM: No focal deficits, tone is normal in all 4 extremities. Extremities: There is no peripheral edema. No clubbing, no cyanosis. Peripheral pulses are intact. - Labs CBC & Chem 7: 12/23/16 18:55 12/23/16 18:55 Labs: Abnormal Lab Results - Last 24 Hours (Table) 12/25/16 12/26/16 12/26/16 Range/Units 20:42 07:40 11:37 POC Glucose (mg/dL) 155 H 104 H 121 H (75-99) mg/dL Assessment and Plan Plan: Impression: #1 Acute exacerbation of chronic obstructive pulmonary disease. #2 Recent admission for acute exacerbation of chronic obstructive pulmonary disease. #3 Fibromyalgia. #4 History of ADHD. #5 Anxiety/depression. Plan: The patient was seen and evaluated by Dr. Rizzo. The patient has been slow to progress and still not back to her baseline We will continue with her current medications. We will increase her activity as tolerated. We'll continue to follow.
[2016-12-26 17:21] LABS: Glucose,Whole Blood 107 mg/dL (75-99)
[2016-12-26] MEDS: LEVOFLOXACIN 500 MG TAB PO SCH (20:10)
[2016-12-26] MEDS: DOXEPIN 25 MG CAP PO SCH (20:10)
[2016-12-26 20:14] LABS: Glucose,Whole Blood 172 mg/dL (75-99)
[2016-12-26] MEDS: MELATONIN 3 MG TABLET PO SCH (21:30)
[2016-12-27] MEDS: methylPREDNISolone SOD SUCCI 40 MG/ML 1 ML VIAL IV SCH ×2 (00:04→08:05)
[2016-12-27] MEDS: HYDROcodone/APAP 10-325MG 1 EACH TAB PO PRN ×3 (05:17→18:39)
[2016-12-27 07:34] LABS: Glucose,Whole Blood 86 mg/dL (75-99)
[2016-12-27] MEDS: MULTIVITAMINS, THERA 1 EACH TAB PO SCH (08:04)
[2016-12-27] MEDS: GABAPENTIN 400 MG CAP PO SCH ×3 (08:04→22:36)
[2016-12-27] MEDS: LORATADINE-PSEUDOEPH 5-120 MG 1 EACH TAB.ER.12H PO SCH ×2 (08:04→20:50)
[2016-12-27] MEDS: INSULIN LISPRO (humaLOG) 300 UNIT/3 ML VIAL SQ SCH ×4 (08:05→22:36)
[2016-12-27] MEDS: FLUoxetine HCL 20 MG CAP PO SCH (08:05)
[2016-12-27] MEDS: ENOXAPARIN 40 MG/0.4 ML SYRINGE SQ SCH (08:05)
[2016-12-27] MEDS: BUDESONIDE 1 MG/2 ML NEBU INHALATION SCH ×2 (08:25→19:18)
[2016-12-27] MEDS: IPRATROPIUM-ALBUTEROL 3 ML NEB INHALATION SCH ×4 (08:25→19:18)
[2016-12-27] MEDS: FORMOTEROL FUMARATE 20 MCG/2 ML NEBU INHALATION SCH ×2 (08:25→19:18)
--- NOTE | 2016-12-27 08:32 | PN ---
DATE OF SERVICE: 12/26/2016 PRESENTING COMPLAINT: Wheezy. INTERVAL HISTORY: Patient admitted with cough, wheezing, felt to have pneumonitis. Getting antibiotics, bronchodilators. Wheezing is still present though a bit better. Nasal stuffiness has improved. Tolerating a diet. Review of systems done for constitutional, cardiovascular, GI, pulmonary; relevant findings as above. Current medications are reviewed. On examination, temperature 97.9, pulse 84, respirations 16, blood pressure 141/78, pulse 96% on room air. GENERAL APPEARANCE: Sitting up, not in distress. EYES: Pupils equal. Conjunctivae normal. NECK: JVD not raised. Mass not palpable. RESPIRATORY: Effort normal. LUNGS: Improved air entry. Some expiratory wheezing. CARDIOVASCULAR: First and second sounds normal. No edema. ABDOMEN: Soft, nontender. Liver and spleen not palpable. PSYCHIATRY: Alert and oriented x3. Mood and affect anxious-appearing. INVESTIGATIONS: White count 5, hemoglobin 12.3, potassium 3.5, BUN and creatinine are normal. Urine culture negative. ASSESSMENT: 1. Acute pneumonitis cannot rule out a gram negative organism with severe bronchospasm, late-onset asthma. 2. Fibromyalgia. 3. Attention deficit hyperactivity disorder. 4. Anxiety, uncontrolled. PLAN: I am thinking patient is getting quite a significant dose of Adderall. I think she would benefit from Klonopin. Given that the patient is already taking Sinequan and Prozac, will get psychiatry opinion.
--- NOTE | 2016-12-27 11:17 | P.PN ---
Subjective Principal diagnosis: Acute exacerbation of bronchial asthma/asthmatic bronchitis. This is a very pleasant 56-year-old female patient who follows with Dr. Loo as her primary care physician. She has a history of fibromyalgia, ADHD, anxiety/ depression,and suspected COPD. She has had recent admissions to [facility] for COPD exacerbation. However the patient is a lifelong nonsmoker. She believes she may have had asthma as a child but has not really been diagnosed with that lately.while at [facility] she was treated with IV Solu-Medrol and subsequent prednisone taper. She's been seen in our office 1 time since then was also treated with steroids and does quite well. Unfortunately, soon as his steroids are tapered down and off she's been having exacerbations. She is quite dyspneic on minimal exertion. She feels as though she could almost passed out from her shortness of breath at times. Currently, she is dyspneic on minimal exertion. She is quite bronchospastic and wheezy. Her chest x-ray reveals no evidence of acute pulmonary disease. She did present with a T-max of 101.3. She is maintaining O2 saturations in the 90s on room air. She's been hemodynamically stable. No significant tachycardia. No tachypnea. No leukocytosis. Influenza screen is negative. The patient is seen again today 12/25/2016 in follow-up on the regular medical floor. She is awake and alert in no acute distress. She states she is breathing easier today as compared to yesterday. She is less bronchospastic and wheezy. She is maintaining good O2 saturations in the mid 90s on room air. The patient is seen again today in the 2016 in follow-up. She is awake and alert in no acute distress. Unfortunately she continues to have significant wheezing and dyspnea on minimal exertion. She has a loose nonproductive cough. Reevaluated on 12/27/2016, continues to have diffuse rhonchi wheezing and shortness of breath. Patient is feeling a bit better as far as her shortness of breath, but she continues to sound tight and bronchospastic. X-rays of her sinuses were relatively unremarkable. Chest x-ray on admission showed no evidence of acute pulmonary disease. Today I went ahead and optimized on her bronchodilators, and I have a feeling that the patient may have to require bronchoscopy if she continues to feel that way. Objective - Vital Signs Vital signs: Vital Signs Temp 98.3 F 12/27/16 07:00 Pulse 84 12/27/16 08:45 Resp 18 12/27/16 07:00 BP 161/79 12/27/16 07:00 Pulse Ox 93 L 12/27/16 08:25 Intake & Output 12/26/16 12/27/16 12/27/16 18:59 06:59 18:59 Intake Total 480 1060 Balance 480 1060 Intake: Oral 480 1060 Other: Voiding Method Toilet Toilet Toilet # Voids 1 1 - Exam GENERAL EXAM: Alert, active, comfortable in no apparent distress. HEAD: Normocephalic. EYES: Normal reaction of pupils, equal size. NOSE: Clear with pink turbinates. THROAT: No erythema or exudates. NECK: No masses, no JVD. CHEST: No chest wall deformity. LUNGS: Equal air entry with bilateral end expiratory wheezing. Diminished throughout.. CVS: S1 and S2 normal with no audible murmurs, regular rhythm. ABDOMEN: No hepatosplenomegaly, normal bowel sounds, no guarding or rigidity. SPINE: No scoliosis or deformity SKIN: No rashes CENTRAL NERVOUS SYSTEM: No focal deficits, tone is normal in all 4 extremities. Extremities: There is no peripheral edema. No clubbing, no cyanosis. Peripheral pulses are intact. - Labs CBC & Chem 7: 12/23/16 18:55 12/23/16 18:55 Labs: Abnormal Lab Results - Last 24 Hours (Table) 12/26/16 12/26/16 12/26/16 Range/Units 11:37 17:19 20:12 POC Glucose (mg/dL) 121 H 107 H 172 H (75-99) mg/dL Assessment and Plan Plan: #1 Acute exacerbation of chronic obstructive pulmonary disease/asthmatic bronchitis # 2 Fibromyalgia. # 3 History of ADHD. #4 Anxiety/depression. Recommendation: Today I will increase her Solu-Medrol, added in Mucinex, I added Singulair, and the patient continues to show no improvement over the next couple of days, bronchoscopy may have to be considered. Time with Patient: Less than 30
[2016-12-27 11:19] LABS: Glucose,Whole Blood 99 mg/dL (75-99)
[2016-12-27] MEDS: methylPREDNISolone SOD SUCCI 125 MG/2 ML VIAL IV SCH ×3 (12:29→23:28)
[2016-12-27] MEDS: guaiFENesin 600 MG TABLET.ER PO SCH ×2 (12:29→20:50)
[2016-12-27 17:18] LABS: Glucose,Whole Blood 149 mg/dL (75-99)
--- NOTE | 2016-12-27 18:02 | P.CN ---
Psychiatric Consult - . Consult date: 12/27/16 Consult:: 12/27/16 17:56 IDENTIFYING DATA: 56-year-old female patient HPI: Patient admitted to the medical floor at [facility] with difficulties with her breathing. She states that it's not doing better and this is the fifth night she has been here. She was admitted per chart history with what appeared like acute pneumonitis. She admits that there has been depressed mood and she also describes anxiety lately. She does relate that she is a worrier. She says her eating and sleeping and been good. She does describe financial stress, multiple recent losses including her mom and aunt. She also describes stressor of her son being an alcoholic and a son with pancreatitis. PAST PSYCHIATRIC HISTORY: She states that she has had a history of recurrent depression. She has been on Prozac up to 60 mg before which she seemed to tolerate fine and Prozac has been helpful for her. She says it was decreased to 40 mg because she started with a different doctor. She said more than 5 psychiatric admissions in the past. She says she has had times or she tried to hurt herself but does not want to talk about that. She has also been on Adderall for ADHD, is not currently on the Adderall. PMH: Fibromyalgia, suspected COPD ALLERGIES: Shellfish, shrimp MEDICATIONS: DuoNeb, cepacol, Pulmicort, Sinequan, Lovenox, Prozac, Perforomist , Neurontin, Mucinex when necessary, [place] when necessary, Humalog, Levaquin, Claritin-D, melatonin, Solu-Medrol, single, Theragran CHEMICAL DEPENDENCY HISTORY: Denies FAMILY PSYCHIATRIC HISTORY: Dad and grandparents with depression FAMILY CHEMICAL DEPENDENCY HISTORY: Not known at this time SOCIAL HISTORY: Patient reports that she lives by herself. She has 2 adult sons. She has a 3-year-old granddaughter. She is not currently working. MENTAL STATUS EXAM: She is alert and cooperative with the interview. Her speech is fluent, not rapid or pressured. Her mood is described as depressed. She denies any thoughts of harm to self or others. There is no evidence of active psychosis or agitation. Cognitively she appears to be grossly intact. IMPRESSIONS: Major depressive disorder, recurrent; generalized anxiety disorder ; history of ADHD PLAN: We'll titrate Prozac up to 60 mg daily to help further with mood and anxiety level. Patient has been up to 60 mg of Prozac in the past with good tolerability and Prozac has been helpful for her. Monitor for any medication side effects. Psychiatry can follow up and monitor her mood/anxiety level.
[2016-12-27] MEDS: MONTELUKAST 10 MG TAB PO SCH (20:50)
[2016-12-27] MEDS: LEVOFLOXACIN 500 MG TAB PO SCH (20:50)
[2016-12-27] MEDS: DOXEPIN 25 MG CAP PO SCH (20:50)
[2016-12-27 21:25] LABS: Glucose,Whole Blood 193 mg/dL (75-99)
[2016-12-27] MEDS: MELATONIN 3 MG TABLET PO SCH (22:36)
[2016-12-28] MEDS: HYDROcodone/APAP 10-325MG 1 EACH TAB PO PRN ×4 (01:12→21:06)
[2016-12-28] MEDS: methylPREDNISolone SOD SUCCI 125 MG/2 ML VIAL IV SCH ×3 (05:43→17:44)
[2016-12-28 07:41] LABS: Glucose,Whole Blood 111 mg/dL (75-99)
[2016-12-28] MEDS: LORATADINE-PSEUDOEPH 5-120 MG 1 EACH TAB.ER.12H PO SCH ×2 (07:41→21:07)
[2016-12-28] MEDS: guaiFENesin 600 MG TABLET.ER PO SCH ×2 (07:41→21:07)
[2016-12-28] MEDS: MULTIVITAMINS, THERA 1 EACH TAB PO SCH (07:41)
[2016-12-28] MEDS: GABAPENTIN 400 MG CAP PO SCH ×3 (07:42→21:06)
[2016-12-28] MEDS: INSULIN LISPRO (humaLOG) 300 UNIT/3 ML VIAL SQ SCH ×4 (07:42→21:07)
[2016-12-28] MEDS: ENOXAPARIN 40 MG/0.4 ML SYRINGE SQ SCH (07:42)
[2016-12-28] MEDS: FLUoxetine HCL 20 MG CAP PO SCH (07:42)
--- NOTE | 2016-12-28 08:34 | PN ---
DATE OF SERVICE: 12/27/2016 PRESENTING COMPLAINT: Some wheezing. INTERVAL HISTORY: Patient with a cough, wheezing, felt to have pneumonitis. Symptoms have been present off and on for close to a year. Still got some wheezing and rattles in the chest. Overall, breathing much better. Psychiatry has increased the patient's dose of Prozac. Patient tolerating a diet. Review of systems done for constitutional, cardiovascular, GI, pulmonary; relevant findings as above. Current medications are reviewed. Patient does take Adderall at home. On examination, temperature 98.4, pulse 82, respirations 18, blood pressure 133/71, pulse ox 94% on room air. GENERAL APPEARANCE: Sitting up, comfortable. EYES: Pupils equal. Conjunctivae normal. NECK: JVD not raised. Mass not palpable. RESPIRATORY: Effort normal. LUNGS: Improved air entry though some wheezing more centrally. CARDIOVASCULAR: First and second sounds normal. No edema. ABDOMEN: Soft, nontender. Liver and spleen not palpable. PSYCHIATRY: Alert and oriented x3. Mood and affect normal. INVESTIGATIONS: Accu-Cheks are noted. ASSESSMENT: 1. Acute pneumonitis, cannot rule out a gram-negative organism with severe bronchospasm, late-onset asthma. 2. Fibromyalgia. 3. Attention deficit hyperactivity disorder. 4. Anxiety, uncontrolled. PLAN: Patient was seen by Dr. Markham from psychiatry and he did increase the patient's dose of Prozac, will check about the Adderall. Patient probably will benefit from bronchoscopy and lavage. Will discuss with Pulmonary.
[2016-12-28] MEDS: BUDESONIDE 1 MG/2 ML NEBU INHALATION SCH ×2 (08:38→20:24)
[2016-12-28] MEDS: IPRATROPIUM-ALBUTEROL 3 ML NEB INHALATION SCH ×4 (08:38→20:25)
[2016-12-28] MEDS: FORMOTEROL FUMARATE 20 MCG/2 ML NEBU INHALATION SCH ×2 (08:38→20:24)
[2016-12-28 11:36] LABS: Glucose,Whole Blood 109 mg/dL (75-99)
--- NOTE | 2016-12-28 12:24 | CDI ---
[facility] [address] [place] [address] ~~~~~~~~~~~~~~~~~~~~~~~~~~~~~~~~~~~~~~~~~~~~~~~~~~~~~~~~~~~ Documentation Clarification Form Date: 12/28/2016 From: Mary Green RN/CDI Admit Date: 12/23/2016 Patient Name: Joelle Min Visit Number: [id number] Dr. Aristides Rizzo MD Asthma is documented in your progress notes and in internal medicine notes. Patient history/risk factors: ADHD, Fibromyalgia, Asthma Clinical Indicators: Patient complains of shortness of breath, some expiratory wheezing, some crackles. She has bronchospasms. She is dyspneic on minimal exertion. Chest X-ray: Report No evidence for acute pulmonary disease Vital Signs: 140/76 88 16 101.3 97 % RA Blood culture: no growth after 96 /hrs Treatment: Bronchodilators Solu-Medrol IV Levaquin PO Monitor O2 sat's and titrate Consults:Internal medicine: Acute pneumonitis cannot rule out gram-negative organism with severe bronchospasm, late onset asthma. In your professional opinion, can you please further specify the type of asthma you are treating and, if known? With Acute Exacerbation Status asthmaticus Acute lower respiratory infection Chronic obstructive bronchitis Other, please specify Unable to determine Severity of Asthma Mild intermittent Mild persistent Moderate persistent Severe persistent Other, please specify Unable to determine Form or Type Cough variant Childhood Exercise induced bronchospasm Extrinsic allergic Idiosyncratic Intrinsic nonallergic Late-onset Mixed Other, please specify Unable to determine Please document in your progress notes and discharge summary in order to capture severity of illness and risk of mortality. Include clinical findings that support your diagnosis. FYI: Press F11 to launch patient chart. Place X here if this finding has no clinical significance, is not applicable or if you are not able to provide any additional documentation. MTDD
--- NOTE | 2016-12-28 12:52 | CDI ---
In responding to this query, please exercise your independent professional judgment. The [facility] Coding Staff and Clinical Documentation Specialists appreciate your assistance in clarifying documentation, maintaining compliance with coding guidelines, accurately documenting patients condition and capturing severity of illness. The fact that a question is asked does not imply that any particular answer is desired or expected. Communication forms are a method of clarifying documentation and are not made part of the Legal Health Record. Thank you in advance for your clarification. Last Revision, July 2015 Maverick Nolasco [address] [facility] [place] [address] Documentation Clarification Form Date: 12/28/2016 12:26:00 PM From: Mary Green Admit Date: 12/23/2016 8:30:00 PM Patient Name: Joelle Min Visit Number: [id number] Discharge Date: Dr. Italo Mallory Documentation of COPD exacerbation is located in the pulmonary consult and ongoing progress notes. History/Risk Factors: Fibromyalgia, ADHD, suspected COPD, Asthma Clinical Indicators: Patient complains of dyspnea on minimal exertion with expiratory wheeze. CXR and Pulmonary notes: No evidence of acute pulmonary disease. Vital Signs/Pulse Oximetry: 140/76 88 16 101.3 97 % RA Lung and Respiratory Assessment: Bilateral expiratory wheeze with scattered rhonchi. Respirations are non-labored. No significant tachycardia. No tachypnea. Influenza screed is negative Treatment: Bronchodilators (per orders) Steroids Solu-Medrol IV taper Monitor O2 Sat's (titrate) Antibiotics: Levaquin PO In your professional opinion, can you please clarify if the above findings and treatment signify any of the following? Acute Exacerbation of Chronic Obstructive Pulmonary Disease (COPD) Acute on Chronic Obstructive Asthma Acute on chronic bronchitis Chronic obstructive pulmonary disease with acute lower respiratory infection Emphysema Unable to determine Other condition, please specify Acute Exacerbation of Chronic Obstructive Pulmonary Disease (COPD) is ruled out. Please document in your progress notes and discharge summary in order to capture severity of illness and risk of mortality. Include clinical findings that support your diagnosis. FYI: Press F11 to launch patient chart. ___+__ Place X here if this finding has no clinical significance, is not applicable or if you are not able to provide any additional documentation. VICENTE
[2016-12-28 17:06] LABS: Glucose,Whole Blood 204 mg/dL (75-99)
[2016-12-28 20:28] LABS: Glucose,Whole Blood 187 mg/dL (75-99)
[2016-12-28] MEDS: MELATONIN 3 MG TABLET PO SCH (21:06)
[2016-12-28] MEDS: MONTELUKAST 10 MG TAB PO SCH (21:06)
[2016-12-28] MEDS: LEVOFLOXACIN 500 MG TAB PO SCH (21:07)
[2016-12-28] MEDS: DOXEPIN 25 MG CAP PO SCH (21:07)
--- NOTE | 2016-12-28 22:02 | PN ---
DATE OF SERVICE: 12/28/2016 PRESENTING COMPLAINT: Wheezing. INTERVAL HISTORY: This patient presented with cough, wheezing, congestion; felt to have pneumonitis. Patient's symptoms have been present close to a year. Spoke to Dr. Holguin earlier today about possible bronchoalveolar lavage that might help the symptoms. He will talk to the patient and evaluate the same. I saw the patient earlier this morning. Patient's symptoms still persist otherwise, though better than on presentation. Review of systems done for constitutional, cardiovascular, GI, pulmonary; relevant findings as above. Current medications are reviewed that include DuoNeb, Solu-Medrol. On examination, temperature 98.7, pulse 77, respiration 16, blood pressure 133/73, pulse ox 93% on room air. GENERAL APPEARANCE: Sitting up. EYES: Pupils equal. Conjunctivae normal. NECK: JVD not raised. Mass not palpable. LUNGS: Improved air entry, though wheezing is present. Prolonged expiration. CARDIOVASCULAR: First and second sounds normal. No edema. ABDOMEN: Soft, nontender. Liver and spleen not palpable. PSYCHIATRY: Alert and oriented x3. Mood and affect anxious-appearing. INVESTIGATIONS: Accu-Cheks are noted. ASSESSMENT: 1. Acute pneumonitis. Cannot rule out a Gram-negative organism. With severe bronchospasm/late-onset asthma, slow to respond. 2. Fibromyalgia. 3. Attention deficit hyperactivity disorder. 4. Anxiety, uncontrolled. PLAN: Continue current medication and treatment plan. Possibly bronchoscopy with lavage tomorrow. Dose of Solu-Medrol has been increased again.
[2016-12-29] MEDS: methylPREDNISolone SOD SUCCI 125 MG/2 ML VIAL IV SCH ×3 (00:18→13:12)
[2016-12-29] MEDS: HYDROcodone/APAP 10-325MG 1 EACH TAB PO PRN ×2 (06:05→14:05)
[2016-12-29 07:06] LABS: Glucose,Whole Blood 135 mg/dL (75-99)
[2016-12-29] MEDS: IPRATROPIUM-ALBUTEROL 3 ML NEB INHALATION SCH ×3 (07:42→15:45)
[2016-12-29] MEDS: FORMOTEROL FUMARATE 20 MCG/2 ML NEBU INHALATION SCH (07:42)
[2016-12-29] MEDS: BUDESONIDE 1 MG/2 ML NEBU INHALATION SCH (07:42)
[2016-12-29] MEDS: INSULIN LISPRO (humaLOG) 300 UNIT/3 ML VIAL SQ SCH ×2 (08:00→13:12)
[2016-12-29] MEDS: LORATADINE-PSEUDOEPH 5-120 MG 1 EACH TAB.ER.12H PO SCH (08:01)
[2016-12-29] MEDS: MULTIVITAMINS, THERA 1 EACH TAB PO SCH (08:01)
[2016-12-29] MEDS: guaiFENesin 600 MG TABLET.ER PO SCH (08:01)
[2016-12-29] MEDS: FLUoxetine HCL 20 MG CAP PO SCH (08:02)
[2016-12-29] MEDS: GABAPENTIN 400 MG CAP PO SCH ×2 (08:02→16:20)
[2016-12-29] MEDS ORDERED: LACTATED RINGERS 1,000 ML IV ONE (11:31)
--- NOTE | 2016-12-29 11:32 | P.PN ---
Subjective This is a very pleasant 56-year-old female patient who follows with Dr. Loo as her primary care physician. She has a history of fibromyalgia, ADHD, anxiety/ depression,and suspected COPD. She has had recent admissions to [facility] for COPD exacerbation. However the patient is a lifelong nonsmoker. She believes she may have had asthma as a child but has not really been diagnosed with that lately.while at [facility] she was treated with IV Solu-Medrol and subsequent prednisone taper. She's been seen in our office 1 time since then was also treated with steroids and does quite well. Unfortunately, soon as his steroids are tapered down and off she's been having exacerbations. She is quite dyspneic on minimal exertion. She feels as though she could almost passed out from her shortness of breath at times. Currently, she is dyspneic on minimal exertion. She is quite bronchospastic and wheezy. Her chest x-ray reveals no evidence of acute pulmonary disease. She did present with a T-max of 101.3. She is maintaining O2 saturations in the 90s on room air. She's been hemodynamically stable. No significant tachycardia. No tachypnea. No leukocytosis. Influenza screen is negative. The patient is seen again today 12/29/2016 in follow-up on the regular medical floor. The plan is for bronchoscopy with BAL with Dr. Holguin today. She is awake and alert in no acute distress. She continues with a dry nonproductive cough. No chills or night sweats. She is maintaining good O2 saturations in the 90s on room air. Objective - Vital Signs Vital signs: Vital Signs Temp 97.5 F L 12/29/16 09:00 Pulse 75 12/29/16 09:00 Resp 18 12/29/16 09:00 BP 137/80 12/29/16 09:00 Pulse Ox 95 12/29/16 09:00 Intake & Output 12/28/16 12/29/16 12/29/16 18:59 06:59 18:59 Intake Total 440 Balance 440 Intake: Oral 440 Other: Voiding Method Toilet Toilet Toilet # Voids 3 1 - Exam GENERAL EXAM: Alert, active, comfortable in no apparent distress. HEAD: Normocephalic. EYES: Normal reaction of pupils, equal size. NOSE: Clear with pink turbinates. THROAT: No erythema or exudates. NECK: No masses, no JVD. CHEST: No chest wall deformity. LUNGS: Equal air entry with bilateral end expiratory wheezing. Diminished throughout.. CVS: S1 and S2 normal with no audible murmurs, regular rhythm. ABDOMEN: No hepatosplenomegaly, normal bowel sounds, no guarding or rigidity. SPINE: No scoliosis or deformity SKIN: No rashes CENTRAL NERVOUS SYSTEM: No focal deficits, tone is normal in all 4 extremities. Extremities: There is no peripheral edema. No clubbing, no cyanosis. Peripheral pulses are intact. - Labs CBC & Chem 7: 12/23/16 18:55 12/23/16 18:55 Labs: Abnormal Lab Results - Last 24 Hours (Table) 12/28/16 12/28/16 12/28/16 Range/Units 11:34 17:04 20:26 POC Glucose (mg/dL) 109 H 204 H 187 H (75-99) mg/dL 12/29/16 Range/Units 07:03 POC Glucose (mg/dL) 135 H (75-99) mg/dL Assessment and Plan Plan: Impression: #1 Acute exacerbation of chronic obstructive pulmonary disease. #2 Recent admission for acute exacerbation of chronic obstructive pulmonary disease. #3 Fibromyalgia. #4 History of ADHD. #5 Anxiety/depression. Plan: The patient was seen and evaluated by Dr. Holguin. The plan is for bronchoscopy with BAL today. Washings will be sent for fluid analysis. Will continue with her current medications. We will continue to follow make further recommendations based on her clinical status.
[2016-12-29] MEDS ORDERED: LIDOCAINE 1% INJ 10MG/ML (20 ML MDV) ONE (11:33)
[2016-12-29] MEDS ORDERED: MIDAZOLAM 2 MG/2 ML VIAL ONE (11:33)
[2016-12-29] MEDS ORDERED: KETAMINE 10 MG/ML 20 ML VIAL ONE (11:33)
[2016-12-29] MEDS ORDERED: PROPOFOL 10 MG/ML 20 ML VIAL IV ONE (11:33)
[2016-12-29] MEDS ORDERED: LACTATED RINGERS 1,000 ML IV SCH (11:52)
[2016-12-29 12:19] LABS: Glucose,Whole Blood 113 mg/dL (75-99)
[2016-12-29] MEDS: ENOXAPARIN 40 MG/0.4 ML SYRINGE SQ SCH (13:11)
[2016-12-29 14:19] VITALS: BP 126/75; RESP 20; TEMP 97.8
--- NOTE | 2016-12-29 14:23 | CONS ---
DATE OF CONSULTATION: 12/28/2016 This is a 56-year-old female with history of COPD/asthma. She also suffers from fibromyalgia, ADHD, anxiety/depression. She was admitted to the hospital on December 23. Yesterday, her primary hospital physician, Dr. Mallory wanted us to evaluate her for possible bronchoscopy, BAL. We decided to go ahead and proceed with bronchoscopy with BAL today on 12/29. Her problems include shortness breath, chest congestion, retained secretions, wheezing, and difficulty breathing. Anyway, the patient is currently going to have bronchoscopy today. Current vital signs include a temperature of 98.1, heart rate 84, respiratory rate 16, blood pressure 122/74, mean arterial pressure 90 and room air saturation 93%. On 2 L she is 97%. Appears in no acute distress. HEENT examination is grossly unremarkable. Mucous membranes are moist. NECK: Supple. Full range of motion. No neck vein distention. No adenopathy or thyromegaly. Cardiovascular examination reveals regular rhythm and rate. S1, S2 normal. No S3, S4 or murmur. Heart sounds are somewhat obscured by her adventitious lung sounds. Lungs reveal coarse rhonchi and wheezes. Breath sounds diminished. No crackles. She is very congested. She has a very typical classic cough of somebody with acute bronchitis. Very wet congested cough. ABDOMEN: Soft. Bowel sounds are heard. Extremities are intact. No cyanosis, clubbing or edema. Skin without rash or lesions. Neurological examination is briefly nonfocal. ASSESSMENT: 1. Asthma exacerbation complicated by purulent tracheobronchitis. 2. Chronic obstructive pulmonary disease. 3. Anxiety, depression, 4. Fibromyalgia. PLAN: We will proceed with bronchoscopy today. Will make sure we do a BAL of the right middle lobe. The patient will follow up with Dr. Rodriguez in our office once she is discharged. Will leave that up to Dr. Mallory. The BAL will set up for the usual things, including cytology, cell count, differential, cultures, AFB smear culture, viral evaluation by PCR as well as fungal wet mount and culture.
--- NOTE | 2016-12-29 14:24 | CDI ---
In responding to this query, please exercise your independent professional judgment. The [facility] Coding Staff and Clinical Documentation Specialists appreciate your assistance in clarifying documentation, maintaining compliance with coding guidelines, accurately documenting patients condition and capturing severity of illness. The fact that a question is asked does not imply that any particular answer is desired or expected. Communication forms are a method of clarifying documentation and are not made part of the Legal Health Record. Thank you in advance for your clarification. Last Revision, November 2015 Maverick Nolasco [address] [place] [address] Documentation Clarification Form Date: 12/28/2016 10:54:00 AM From: Mary [place] Admit Date: 12/23/2016 8:30:00 PM Patient Name: Joelle Min Visit Number: [id number] Discharge Date: Dr. José Manuel Holguin/TAMMY Harrison Asthma is documented in your progress notes and in internal medicine notes. Patient history/risk factors: ADHD, Fibromyalgia, Asthma Clinical Indicators: Patient complains of shortness of breath, some expiratory wheezing, some crackles. She has bronchospasms. She is dyspneic on minimal exertion. Chest X-ray: Report No evidence for acute pulmonary disease Vital Signs: 140/76 88 16 101.3 97 % RA Blood culture: no growth after 96 /hrs Treatment: Bronchodilators Solu-Medrol IV Levaquin IV Monitor O2 sat's and titrate Consults: Internal medicine: Acute pneumonitis cannot rule out gram-negative organism with severe bronchospasm, late onset asthma. Other Treatment: In your professional opinion, can you please further specify the type of asthma you are treating and, if known? With Acute Exacerbation Status asthmaticus Acute lower respiratory infection Chronic obstructive bronchitis Other, please specify Unable to determine Severity of Asthma Mild intermittent Mild persistent Moderate persistent Severe persistent Other, please specify Unable to determine Form or Type Cough variant Childhood Exercise induced bronchospasm Extrinsic allergic Idiosyncratic Intrinsic nonallergic Late-onset Mixed Other, please specify Unable to determine Please document in your progress notes and discharge summary in order to capture severity of illness and risk of mortality. Include clinical findings that support your diagnosis. FYI: Press F11 to launch patient chart. Place X here if this finding has no clinical significance, is not applicable or if you are not able to provide any additional documentation. MTDD
[2016-12-29 16:00] VITALS: PULSE 76
[2016-12-29 16:46] LABS: RBC, Body Fluid 5450 /uL
[2016-12-29 17:12] LABS: Glucose,Whole Blood 120 mg/dL (75-99)
--- NOTE | 2016-12-29 23:01 | PCN ---
DATE OF PROCEDURE: PROCEDURE PERFORMED: Bronchoscopy, airway examination, therapeutic lavage, bronchoalveolar lavage. PREOPERATIVE DIAGNOSIS: Retained secretions, chronic obstructive pulmonary disease, asthma. POSTOPERATIVE DIAGNOSIS: Retained secretions, chronic obstructive pulmonary disease, asthma. The [employer] EXAM[employer]ER provided unconscious sedation of general anesthesia. The patient's procedure was done in Room #2. There was informed consent. There was universal timeout. After the patient was adequately sedated and being fully monitored, the bronchoscope was inserted through the right nostril. It passed through the right nasopharynx into the oropharynx. The hypopharynx was identified and topicalized. The hypopharyngeal structures, including anterior commissure, true cords, false cords, arytenoids, piriform sinuses, right and left valleculae all appeared relatively normal. After topicalization, the bronchoscope was pushed through the glottic opening into the trachea. Trachea appeared relatively normal. There were thick secretions noted in the mid to distal trachea. Some secretions were noted to be saddling over the tracheal derrell. The right and left mainstem were topicalized. After thorough topicalization, the right upper lobe and its 3 segments, the right middle lobe and its 2 segments, the right lower lobe and its 5 segments, the left upper lobe proper and its 2 segments, the lingula and its 2 segments, and the left lower lobe and its 4 segments were all evaluated. There was findings that were similar throughout including diffuse bronchitis, erythema, and hyperemia. The airways were somewhat friable. There were thick yellow-green secretions noted throughout. They were suctioned with some difficulty. There was no dominant mass or lesion. There was significant vascular engorgement. Next, the bronchoscope was wedged into the right middle lobe. We did a BAL. The patient tolerated the procedure well. There was no immediate complications. The bronchoscope will be drawn and the patient will be taken back to the room where she will be recovered. The BAL specimens were sent to the laboratory for analysis.
--- NOTE | 2016-12-30 23:11 | DS ---
DATE OF ADMISSION: 12/23/2016 DATE OF DISCHARGE: 12/29/2016 FINAL DIAGNOSES: 1. Acute pneumonitis, could be viral, cannot rule out gram-negative organism causing severe bronchospasm. 2. Chronic fibromyalgia. 3. Attention deficit hyperactivity disorder. 4. Anxiety, uncontrolled. HOSPITAL COURSE: Had close to a year of symptoms of coughing and wheezing, congestion, has multiple presentations to her nurse head's office and presented with the same. The patient was treated with steroids, antibiotics, bronchodilators, only gave her some relief. Dr. Holguin did a bronchoscopy earlier today and patient was found to have thick secretions in the mid to distal trachea, including the derrell, and the patient had diffuse bronchitis, erythema. Area was somewhat friable and this was found to be throughout. I spoke to Dr. Holguin earlier today and discussed with the patient. The patient will be discharged on the same. Patient also was seen by Dr. Markham from psychiatry, who adjusted some medications. I did tell the patient to see her own psychiatrist and see if the Adderall can be decreased. On examination, decreased wheezing. CARDIOVASCULAR: First and second sounds normal. PSYCH: Some anxiety is present. DISCHARGE MEDICATIONS: 1. Neurontin 800 mg p.o. t.i.d. 2. [place] 10, 1 tablet q.i.d. p.r.n. 3. Adderall 20 mg p.o. b.i.d. 4. Ventolin 2.5 q.i.d. p.r.n. 5. ProAir 1 to 2 puffs q.i.d. 6. Biotin 5 mg p.o. daily. 7. Senna 5 to 6 mg p.o. q.h.s. 8. Prozac 40 mg a day. 9. Centrum Silver 1 tablet p.o. daily. 10. Pulmicort 2 puffs daily. 11. Prozac 60 mg a day. 12. Claritin-D 1 tablet 10 mg p.o. q.h.s. 13. Prednisone taper. Follow up with Dr. Loo in 3 days. Follow up with Dr. Rodriguez in 1 week. Follow with her psychiatrist. Discharge planning more than 35 minutes.
== END 2016-12-29 18:25 | disposition home health service (06) | DRG 194 ==
LOC: EC 18:29 → 5MS5E 20:30
PROVIDERS: ADMIT Hospitalist; ATTEND Hospitalist
PROC: 0B958ZX Drainage of Right Middle Lobe Bronchus, Via Natural or Artificial Opening Endoscopic, Diagnostic (ICD-10-PCS; principal; 2016-12-29 13:45)
DX: J12.9 Viral pneumonia, unspecified (principal); J44.0 Chronic obstructive pulmonary disease with (acute) lower respiratory infection; J15.6 Pneumonia due to other Gram-negative bacteria; F32.9 Major depressive disorder, single episode, unspecified; F41.9 Anxiety disorder, unspecified; F90.9 Attention-deficit hyperactivity disorder, unspecified type; M79.7 Fibromyalgia; Z79.899 Other long term (current) drug therapy; Z86.14 Personal history of Methicillin resistant Staphylococcus aureus infection
CPT/HCPCS: 31624; 36415; 70220; 71020; 80053; 81001; 83036; 83605; 85025; 87040; 87070; 87086; 87102; 87116; 87205; 87206; 87252; 87496; 87498; 87502; 87529; 87798; 88108; 88305; 89050; 94640; 94760; 96361; 96374; 99285

== ENCOUNTER 2017-02-01 15:27 | Emergency (ER) | payer MEDICARE, OTHER ==
[2017-02-01 15:41] VITALS: TEMP 99.3
--- NOTE | 2017-02-01 16:05 | ED ---
General Adult HPI - General Chief complaint: Skin/Abscess/Foreign Body Stated complaint: poss MRSA or infantigo Time Seen by Provider: 02/01/17 15:44 Source: patient, RN notes reviewed Mode of arrival: ambulatory Limitations: no limitations - History of Present Illness Initial comments: Patient a 56-year-old female who presents emergency room today with a chief complaint of possible impetigo. She does admit that she's had this once in the past. Also admits to history of MRSA. She states that 2 days ago she was couple spots around her eyes. She states she is concerned she will not Multiple pictures today on the Internet and decided to come here to the emergency room to have it checked. Patient does admit that she seen a couple spots scattered throughout the upper extremities. She denies any other complaints or associated symptoms. - Related Data Home Medications Medication Instructions Recorded Confirmed Gabapentin 800 mg PO TID 05/10/14 02/01/17 Hydrocodone/Acetaminophen [[place] 1 tab PO QID PRN 08/07/16 02/01/17 10-325] Albuterol Nebulized [Ventolin 2.5 mg INHALATION RT-QID PRN 11/20/16 02/01/17 Nebulized] Dextroamphetamine/Amphetamine 20 mg PO BID 11/20/16 02/01/17 [Adderall] Doxepin HCl [SINEquan] 50 mg PO HS 11/20/16 02/01/17 FLUoxetine HCL [PROzac] 40 mg PO DAILY 12/23/16 02/01/17 Multivits-Min/Iron/FA/Lutein 1 tab PO DAILY 12/23/16 02/01/17 [Centrum Silver Women Tablet] Budesonide [Pulmicort Flexhaler] 2 puff INHALATION RT-BID 02/01/17 02/01/17 FLUoxetine HCL [PROzac] 20 mg PO DAILY 02/01/17 02/01/17 Previous Rx's Medication Instructions Recorded Sulfamethox-Tmp 800-160Mg [Bactrim 1 tab PO Q12HR #20 tab 02/01/17 DS 800-160 mg] amLODIPine BESYLATE [Norvasc] 5 mg PO DAILY #15 tablet 02/01/17 Allergies Allergy/AdvReac Type Severity Reaction Status Date / Time shellfish derived Allergy Itching Verified 02/01/17 16:05 shrimp AdvReac Itching Verified 02/01/17 16:05 Review of Systems ROS Statement: Those systems with pertinent positive or pertinent negative responses have been documented in the HPI. ROS Other: All systems not noted in ROS Statement are negative. Past Medical History Past Medical History: Asthma, COPD, Fibromyalgia Additional Past Medical History / Comment(s): IRREGULAR VAGINAL BLEEDING, STEROIDS WITHIN LAST 3 MOS, neck pain History of Any Multi-Drug Resistant Organisms: MRSA Date of last positivie culture/infection: UNK MDRO Source:: Left axilla Past Surgical History: Orthopedic Surgery, Tonsillectomy, Tubal Ligation Additional Past Surgical History / Comment(s): TOVA SHOULDER,TOVA WRISTS,LT COLLAR BONE, MRSA on side 8-10years ago Past Anesthesia/Blood Transfusion Reactions: No Reported Reaction Past Psychological History: ADD/ADHD, Anxiety, Depression Smoking Status: Never smoker Past Alcohol Use History: None Reported Past Drug Use History: None Reported - Past Family History Father Family Medical History: Cancer Additional Family Medical History / Comment(s): LUNG General Exam - General Exam Comments Initial Comments: General: The patient is awake and alert, in no distress, and does not appear acutely ill. Eye: Pupils are equal, round and reactive to light, extra-ocular movements are intact. No nystagmus. There is normal conjunctiva bilaterally. No signs of icterus. Ears, nose, mouth and throat: There are moist mucous membranes and no oral lesions. Neck: The neck is supple, there is no tenderness or JVD. Cardiovascular: There is a regular rate and rhythm. No murmur, rub or gallop is appreciated. Respiratory: Lungs are clear to auscultation, respirations are non-labored, breath sounds are equal. No wheezes, stridor, rales, or rhonchi. Musculoskeletal: Normal ROM, no tenderness. Strength 5/5. Sensation intact. Pulses equal bilaterally 2+. Neurological: A&O x 3. CN II-XII intact, There are no obvious motor or sensory deficits. Coordination appears grossly intact. Speech is normal. Skin: Patient does have 2 small red spots located on to the middle of 400 one to the right eyebrow. Patient also has a few spots seen on the right upper extremity. No redness locally erythema. Psychiatric: Cooperative, appropriate mood & affect, normal judgment. Limitations: no limitations Course Vital Signs 02/01/17 02/01/17 02/01/17 15:38 16:28 16:52 Temperature 99.3 F Pulse Rate 99 Respiratory 16 Rate Blood Pressure 203/105 184/94 192/95 O2 Sat by Pulse 99 Oximetry 02/01/17 17:28 Temperature Pulse Rate Respiratory Rate Blood Pressure 174/87 O2 Sat by Pulse Oximetry - Reevaluation(s) Reevaluation #1: 02/01/17 16:30 Patient's blood pressure remains elevated in the emergency room. Most recent reading was 184/90. Patient does not have a history of high blood pressure. She does admit to increased anxiety and always being nervous when she comes to the hospital. She states she is worried about her son at home who has a history of pancreatitis and continues to drink. She states she's never had high blood pressure in the past. The pressures been checked multiple times with nursing staff. Was discussed with patient about obtaining basic lab work and EKG. She is in agreement with this at this time. Patient will be given hydralazine for her blood pressure and have it rechecked. EKG Findings - EKG Comments: EKG Findings:: EKG performed at 1648: A 12-lead EKG was performed and interpreted by me as showing the following: Rate is 88, and rhythm is normal sinus. There are normal QRS complexes and normal R-wave progression. ST segments have no elevation or depression, and MD segments appear normal. Medical Decision Making - Medical Decision Making Case discussed in detail with attending physician Dr. [place]. Patient reexamined at this time shows no signs of distress. Patient's labs been reviewed unremarkable. EKG shows normal sinus rhythm. Patient feeling better here in emergency room. She admits that her insides been increased. She was given Ativan. Feeling better. Patient will be discharged home advised follow-up family doctor. Given a prescription for Norvasc. Also prescription for Bactrim to cover for skin infection. Advised patient. Family doctor over the next 2 days to have blood pressure recheck. Advised return to emergency room if any symptoms increase or worsen or for any other concerns. Patient states her stated and is in agreement. - Lab Data Result diagrams: 02/01/17 16:47 02/01/17 16:47 Lab Results 02/01/17 02/01/17 Range/Units 16:47 16:47 WBC 7.6 (3.8-10.6) k/uL RBC 4.88 (3.80-5.40) m/uL Hgb 13.5 (11.4-16.0) gm/dL Hct 41.4 (34.0-46.0) % MCV 84.7 (80.0-100.0) fL MCH 27.7 (25.0-35.0) pg MCHC 32.7 (31.0-37.0) g/dL RDW 14.2 (11.5-15.5) % Plt Count 397 (150-450) k/uL Neutrophils % 53 % Lymphocytes % 30 % Monocytes % 8 % Eosinophils % 4 % Basophils % 1 % Neutrophils # 4.1 (1.3-7.7) k/uL Lymphocytes # 2.2 (1.0-4.8) k/uL Monocytes # 0.6 (0-1.0) k/uL Eosinophils # 0.3 (0-0.7) k/uL Basophils # 0.1 (0-0.2) k/uL Sodium 140 (137-145) mmol/L Potassium 3.9 (3.5-5.1) mmol/L Chloride 102 (98-107) mmol/L Carbon Dioxide 25 (22-30) mmol/L Anion Gap 13 mmol/L BUN 13 (7-17) mg/dL Creatinine 0.83 (0.52-1.04) mg/dL Est GFR (MDRD) Af Amer >60 (>60 ml/min/1.73 sqM) Est GFR (MDRD) Non-Af >60 (>60 ml/min/1.73 sqM) Glucose 101 H (74-99) mg/dL Calcium 10.4 H (8.4-10.2) mg/dL Total Bilirubin 1.1 (0.2-1.3) mg/dL AST 33 (14-36) U/L ALT 29 (9-52) U/L Alkaline Phosphatase 105 (38-126) U/L Total Protein 8.3 H (6.3-8.2) g/dL Albumin 5.0 (3.5-5.0) g/dL Disposition Clinical Impression: Hypertension, Skin infection, Anxiety Disposition: HOME SELF-CARE Condition: Good Instructions: Hypertension (ED) Additional Instructions: Please use medication as discussed. Please follow-up with family doctor in the next 1-2 days and have blood pressure rechecked. Please return to emergency room if the symptoms increase or worsen or for any other concerns. Prescriptions: amLODIPine BESYLATE [Norvasc] 5 mg PO DAILY #15 tablet Sulfamethox-Tmp 800-160Mg [Bactrim DS 800-160 mg] 1 tab PO Q12HR #20 tab Referrals: Eric Loo DO [Primary Care Provider] - 1-2 days Time of Disposition: 17:39
[2017-02-01] MEDS ORDERED: hydrALAZINE HCL 20 MG/ML 1 ML VIAL IVP STA (16:38)
[2017-02-01 17:05] LABS: Basophils # (A) 0.1 k/uL (0-0.2); Basophils % (A) 1 %; CH 28.2; CHCM 33.4; Eosinophils # (A) 0.3 k/uL (0-0.7); Eosinophils % (A) 4 %; HCT 41.4 % (34.0-46.0); HDW 2.69; HGB 13.5 gm/dL (11.4-16.0); Luc % (Auto) 4; Lymphocytes # (A) 2.2 k/uL (1.0-4.8); Lymphocytes % (A) 30 %; MCH 27.7 pg (25.0-35.0); MCHC 32.7 g/dL (31.0-37.0); MCV 84.7 fL (80.0-100.0); Mean Platelet Volume 6.8; Monocytes # (A) 0.6 k/uL (0-1.0); Monocytes % (A) 8 %; Neutrophils # (A) 4.1 k/uL (1.3-7.7); Neutrophils % (A) 53 %; RBC 4.88 m/uL (3.80-5.40); RDW 14.2 % (11.5-15.5); WBC 7.6 k/uL (3.8-10.6); WBC (Perox) 7.26
[2017-02-01 17:15] LABS: ALT 29 U/L (9-52); AST 33 U/L (14-36); Alkaline Phosphatase 105 U/L (38-126); Anion Gap 13 mmol/L; Blood Urea Nitrogen 13 mg/dL (7-17); Calcium 10.4 mg/dL (8.4-10.2); Carbon Dioxide 25 mmol/L (22-30); Chloride 102 mmol/L (98-107); Glucose 101 mg/dL (74-99); Non-African American GFR(MDRD) >60 (>60 ml/min/1.73 sqM); Potassium 3.9 mmol/L (3.5-5.1); Sodium 140 mmol/L (137-145); Total Bilirubin 1.1 mg/dL (0.2-1.3); Total Protein 8.3 g/dL (6.3-8.2)
[2017-02-01] MEDS ORDERED: LORazepam 1 MG TAB PO STA (17:38)
[2017-02-01 17:55] VITALS: BP 138/63; PULSE 107; RESP 18
== END 2017-02-01 17:59 | disposition home or self-care (01) ==
LOC: EC 15:27
DX: L08.9 Local infection of the skin and subcutaneous tissue, unspecified (principal); I10 Essential (primary) hypertension; F41.9 Anxiety disorder, unspecified; J45.909 Unspecified asthma, uncomplicated; J44.9 Chronic obstructive pulmonary disease, unspecified; F90.9 Attention-deficit hyperactivity disorder, unspecified type; Z91.013 Allergy to seafood; Z86.14 Personal history of Methicillin resistant Staphylococcus aureus infection; Z79.51 Long term (current) use of inhaled steroids; Z79.899 Other long term (current) drug therapy
CPT/HCPCS: 99283; 96374; 36415; 93005; 80053; 85025; J0360

== ENCOUNTER 2017-02-26 17:42 | Emergency (ER) | payer MEDICARE, OTHER ==
[2017-02-26] MEDS ORDERED: ALBUTEROL NEBULIZED 2.5 MG/3 ML INHALATION STA (17:52)
[2017-02-26] MEDS ORDERED: SODIUM CHLORIDE 0.9% 1,000 ML IV STA (17:52)
[2017-02-26] MEDS ORDERED: IPRATROPIUM 0.5 MG/2.5 ML NEBU INHALATION STA (17:52)
[2017-02-26] MEDS ORDERED: SODIUM CHLORIDE 0.9% 500 ML IV STA (17:52)
[2017-02-26] MEDS ORDERED: methylPREDNISolone SOD SUCCI 125 MG/2 ML VIAL IV STA (17:52)
--- NOTE | 2017-02-26 17:53 | ED ---
General Adult HPI - General Chief complaint: Shortness of Breath Stated complaint: diff breathing Time Seen by Provider: 02/26/17 17:51 Source: patient, RN notes reviewed, old records reviewed Mode of arrival: ambulatory Limitations: no limitations - History of Present Illness Initial comments: This is a 56-year-old female guarantors of breath, patient is discharged with cough and congestion. Patient denies history of smoking but does have remote history of asthma. No travel history. No fevers. Increased cough and congestion no chest pain. Patient denies any sick contacts. Again no travel history. No history of COPD or hospital admissions for shortness of breath. - Related Data Home Medications Medication Instructions Recorded Confirmed Gabapentin 800 mg PO TID 05/10/14 02/01/17 Hydrocodone/Acetaminophen [[place] 1 tab PO QID PRN 08/07/16 02/01/17 10-325] Albuterol Nebulized [Ventolin 2.5 mg INHALATION RT-QID PRN 11/20/16 02/01/17 Nebulized] Dextroamphetamine/Amphetamine 20 mg PO BID 11/20/16 02/01/17 [Adderall] Doxepin HCl [SINEquan] 50 mg PO HS 11/20/16 02/01/17 FLUoxetine HCL [PROzac] 40 mg PO DAILY 12/23/16 02/01/17 Multivit-Min/Iron/Folic/Lutein 1 tab PO DAILY 12/23/16 02/01/17 [Centrum Silver Women Tablet] Budesonide [Pulmicort Flexhaler] 2 puff INHALATION RT-BID 02/01/17 02/01/17 FLUoxetine HCL [PROzac] 20 mg PO DAILY 02/01/17 02/01/17 Previous Rx's Medication Instructions Recorded Sulfamethox-Tmp 800-160Mg [Bactrim 1 tab PO Q12HR #20 tab 02/01/17 DS 800-160 mg] amLODIPine BESYLATE [Norvasc] 5 mg PO DAILY #15 tablet 02/01/17 Allergies Allergy/AdvReac Type Severity Reaction Status Date / Time shellfish derived Allergy Itching Verified 02/26/17 17:42 shrimp AdvReac Itching Verified 02/26/17 17:42 Review of Systems ROS Statement: Those systems with pertinent positive or pertinent negative responses have been documented in the HPI. ROS Other: All systems not noted in ROS Statement are negative. Past Medical History Past Medical History: Asthma, COPD, Fibromyalgia Additional Past Medical History / Comment(s): IRREGULAR VAGINAL BLEEDING, STEROIDS WITHIN LAST 3 MOS, neck pain History of Any Multi-Drug Resistant Organisms: MRSA Date of last positivie culture/infection: UNK MDRO Source:: Left axilla Past Surgical History: Orthopedic Surgery, Tonsillectomy, Tubal Ligation Additional Past Surgical History / Comment(s): TOVA SHOULDER,TOVA WRISTS,LT COLLAR BONE, MRSA on side 8-10years ago Past Anesthesia/Blood Transfusion Reactions: No Reported Reaction Past Psychological History: ADD/ADHD, Anxiety, Depression Smoking Status: Never smoker Past Alcohol Use History: None Reported Past Drug Use History: None Reported - Past Family History Father Family Medical History: Cancer Additional Family Medical History / Comment(s): LUNG General Exam Limitations: no limitations General appearance: alert, in no apparent distress Head exam: Present: atraumatic, normocephalic, normal inspection Eye exam: Present: normal appearance, PERRL, EOMI. Absent: scleral icterus, conjunctival injection, periorbital swelling ENT exam: Present: normal exam, mucous membranes moist Neck exam: Present: normal inspection. Absent: tenderness, meningismus, lymphadenopathy Respiratory exam: Present: normal lung sounds bilaterally, wheezes, decreased breath sounds, prolonged expiratory. Absent: respiratory distress, rales, rhonchi, stridor Cardiovascular Exam: Present: regular rate, normal rhythm, normal heart sounds. Absent: systolic murmur, diastolic murmur, rubs, gallop, clicks GI/Abdominal exam: Present: soft, normal bowel sounds. Absent: distended, tenderness, guarding, rebound, rigid Extremities exam: Present: normal inspection, full ROM, normal capillary refill. Absent: tenderness, pedal edema, joint swelling, calf tenderness Back exam: Present: normal inspection Neurological exam: Present: alert, oriented X3, CN II-XII intact Psychiatric exam: Present: normal affect, normal mood Skin exam: Present: warm, dry, intact, normal color. Absent: rash Course Vital Signs 02/26/17 02/26/17 02/26/17 17:42 18:22 18:37 Temperature 99.4 F Pulse Rate 89 82 80 Respiratory 24 Rate Blood Pressure 163/86 O2 Sat by Pulse 95 Oximetry 02/26/17 02/26/17 02/26/17 18:52 19:00 19:16 Temperature Pulse Rate 82 88 Respiratory 20 Rate Blood Pressure O2 Sat by Pulse Oximetry - Reevaluation(s) Reevaluation #1: 02/26/17 19:35 Patient have any significant improvement after prolonged breathing treatment. Patient's able to ambulate without dyspnea. EKG Findings - EKG Comments: EKG Findings:: EKG shows normal sinus rhythm rate of 81, OR 136, QRS 90, QTC 487 Medical Decision Making - Medical Decision Making 36-year-old here with cough and congestion, positive bronchitis. On exam. Patient is x-ray negative for pneumonia, feeling better after breathing treatment again be discharged home - Lab Data Result diagrams: 02/26/17 18:20 02/26/17 18:20 Lab Results 02/26/17 02/26/17 02/26/17 Range/Units 18:20 18:20 18:20 WBC 8.5 (3.8-10.6) k/uL RBC 4.89 (3.80-5.40) m/uL Hgb 14.2 (11.4-16.0) gm/dL Hct 41.0 (34.0-46.0) % MCV 83.7 (80.0-100.0) fL MCH 29.0 (25.0-35.0) pg MCHC 34.7 (31.0-37.0) g/dL RDW 13.5 (11.5-15.5) % Plt Count 340 (150-450) k/uL Neutrophils % (Manual) 27.0 % Lymphocytes % (Manual) 39.0 % Monocytes % (Manual) 8.0 % Eosinophils % (Manual) 26.0 % Neutrophils # (Manual) 2.3 (1.3-7.7) k/uL Lymphocytes # (Manual) 3.3 (1.0-4.8) k/uL Monocytes # (Manual) 0.7 (0-1.0) k/uL Eosinophils # (Manual) 2.2 H (0-0.7) k/uL Nucleated RBCs 0 (0-0) /100 WBC Manual Slide Review Performed RBC Morphology Normal PT (9.0-12.0) sec INR (<1.1) APTT (22.0-30.0) sec Sodium 145 (137-145) mmol/L Potassium 3.7 (3.5-5.1) mmol/L Chloride 107 (98-107) mmol/L Carbon Dioxide 22 (22-30) mmol/L Anion Gap 16 mmol/L BUN 10 (7-17) mg/dL Creatinine 0.71 (0.52-1.04) mg/dL Est GFR (MDRD) Af Amer >60 (>60 ml/min/1.73 sqM) Est GFR (MDRD) Non-Af >60 (>60 ml/min/1.73 sqM) Glucose 121 H (74-99) mg/dL Calcium 9.8 (8.4-10.2) mg/dL Magnesium 1.8 (1.6-2.3) mg/dL Total Bilirubin 0.4 (0.2-1.3) mg/dL AST 22 (14-36) U/L ALT 23 (9-52) U/L Alkaline Phosphatase 110 (38-126) U/L Total Creatine Kinase 74 (30-135) U/L CK-MB (CK-2) 1.0 (0.0-2.4) ng/mL CK-MB (CK-2) Rel Index 1.4 Troponin I <0.012 (0.000-0.034) ng/mL NT-Pro-B Natriuret Pep pg/mL Total Protein 7.6 (6.3-8.2) g/dL Albumin 4.7 (3.5-5.0) g/dL 02/26/17 02/26/17 Range/Units 18:20 18:20 WBC (3.8-10.6) k/uL RBC (3.80-5.40) m/uL Hgb (11.4-16.0) gm/dL Hct (34.0-46.0) % MCV (80.0-100.0) fL MCH (25.0-35.0) pg MCHC (31.0-37.0) g/dL RDW (11.5-15.5) % Plt Count (150-450) k/uL Neutrophils % (Manual) % Lymphocytes % (Manual) % Monocytes % (Manual) % Eosinophils % (Manual) % Neutrophils # (Manual) (1.3-7.7) k/uL Lymphocytes # (Manual) (1.0-4.8) k/uL Monocytes # (Manual) (0-1.0) k/uL Eosinophils # (Manual) (0-0.7) k/uL Nucleated RBCs (0-0) /100 WBC Manual Slide Review RBC Morphology PT 10.7 (9.0-12.0) sec INR 1.1 (<1.1) APTT 24.5 (22.0-30.0) sec Sodium (137-145) mmol/L Potassium (3.5-5.1) mmol/L Chloride (98-107) mmol/L Carbon Dioxide (22-30) mmol/L Anion Gap mmol/L BUN (7-17) mg/dL Creatinine (0.52-1.04) mg/dL Est GFR (MDRD) Af Amer (>60 ml/min/1.73 sqM) Est GFR (MDRD) Non-Af (>60 ml/min/1.73 sqM) Glucose (74-99) mg/dL Calcium (8.4-10.2) mg/dL Magnesium (1.6-2.3) mg/dL Total Bilirubin (0.2-1.3) mg/dL AST (14-36) U/L ALT (9-52) U/L Alkaline Phosphatase (38-126) U/L Total Creatine Kinase (30-135) U/L CK-MB (CK-2) (0.0-2.4) ng/mL CK-MB (CK-2) Rel Index Troponin I (0.000-0.034) ng/mL NT-Pro-B Natriuret Pep 56 pg/mL Total Protein (6.3-8.2) g/dL Albumin (3.5-5.0) g/dL - Radiology Data Radiology results: report reviewed (Chest x-ray is negative for acute disease), image reviewed Disposition Clinical Impression: Asthma with exacerbation Disposition: HOME SELF-CARE Condition: Good Instructions: Acute Bronchitis (ED), Asthma (ED) Referrals: Eric Loo DO [Primary Care Provider] - 1-2 days
[2017-02-26 18:33] LABS: CH 28.3; HDW 2.97; HGB 14.2 gm/dL (11.4-16.0); MCHC 34.7 g/dL (31.0-37.0); MCV 83.7 fL (80.0-100.0); Mean Platelet Volume 6.4; RBC 4.89 m/uL (3.80-5.40); RDW 13.5 % (11.5-15.5); WBC 8.5 k/uL (3.8-10.6); WBC (Perox) 8.36
[2017-02-26 18:44] LABS: ALT 23 U/L (9-52); AST 22 U/L (14-36); Alkaline Phosphatase 110 U/L (38-126); Anion Gap 16 mmol/L; Blood Urea Nitrogen 10 mg/dL (7-17); Calcium 9.8 mg/dL (8.4-10.2); Carbon Dioxide 22 mmol/L (22-30); Chloride 107 mmol/L (98-107); Glucose 121 mg/dL (74-99); Magnesium 1.8 mg/dL (1.6-2.3); Non-African American GFR(MDRD) >60 (>60 ml/min/1.73 sqM); Potassium 3.7 mmol/L (3.5-5.1); Sodium 145 mmol/L (137-145); Total Bilirubin 0.4 mg/dL (0.2-1.3); Total Protein 7.6 g/dL (6.3-8.2)
[2017-02-26 18:47] LABS: Add Differential Manual Differential
[2017-02-26 18:48] LABS: INR 1.1 (<1.1); Partial Thromboplastin Time 24.5 sec (22.0-30.0); Prothrombin Time 10.7 sec (9.0-12.0)
[2017-02-26 18:51] LABS: Manual Review Performed; Nucleated Red Blood Cells 0 /100 WBC (0-0); RBC Morphology Normal; Total Cells Counted 100
[2017-02-26 18:55] LABS: Creatine Kinase 74 U/L (30-135)
[2017-02-26 19:02] VITALS: RESP 20
[2017-02-26 19:08] LABS: Troponin I <0.012 ng/mL (0.000-0.034)
--- NOTE | 2017-02-26 19:25 | XR ---
EXAMINATION TYPE: XR chest 2V DATE OF EXAM: 02/26/2017 COMPARISON: 12/23/2016 INDICATION: Difficulty breathing, COPD TECHNIQUE: Frontal and lateral views of the chest are obtained. FINDINGS: The heart size is normal. The pulmonary vasculature is normal. The lungs are clear. IMPRESSION: 1. No acute pulmonary process.
[2017-02-26 20:10] VITALS: BP 134/62; PULSE 77; TEMP 98.2
== END 2017-02-26 20:08 | disposition home or self-care (01) ==
LOC: EC 17:42
DX: J45.901 Unspecified asthma with (acute) exacerbation (principal); R05 Cough; R09.81 Nasal congestion; M79.7 Fibromyalgia; J44.9 Chronic obstructive pulmonary disease, unspecified; F32.9 Major depressive disorder, single episode, unspecified; F90.9 Attention-deficit hyperactivity disorder, unspecified type; F41.9 Anxiety disorder, unspecified; Z79.899 Other long term (current) drug therapy; Z79.51 Long term (current) use of inhaled steroids; Z91.013 Allergy to seafood
CPT/HCPCS: 36415; 94644; 93005; 83880; 80053; 82550; 82553; 83735; 84484; 85025; 85610; 85730; 71020; 99285; 96374; 96361 ×2; J2930

== ENCOUNTER 2017-03-05 03:13 | Inpatient (IN) | payer MEDICARE, OTHER ==
[2017-03-05] MEDS ORDERED: IPRATROPIUM-ALBUTEROL 3 ML NEB INHALATION STA (03:14)
[2017-03-05] MEDS ORDERED: MAGNESIUM SULFATE-D5W PMX 1 GM in DEXTROSE/WATER 1 100ML.BAG IVPB STA (03:14)
[2017-03-05] MEDS ORDERED: SODIUM CHLORIDE 0.9% 1,000 ML IV STA (03:14)
--- NOTE | 2017-03-05 03:17 | ED ---
SOB HPI - General Stated Complaint: ANATOLIY Time Seen by Provider: 03/05/17 03:13 Source: patient, EMS, RN notes reviewed Mode of arrival: EMS - History of Present Illness Initial Comments: This is a 56-year-old female history of COPD who is brought in by EMS for evaluation of shortness of breath that is refractory to her home treatments. She has been on antibiotics and steroids. Steroids. His ago started getting progressively worse short of breath. She denies any chest pain. Fevers or chills he has a cough. She was given a DuoNeb treatment and oral prednisone by EMS personnel without much relief. She continues to be short of breath MD Complaint: shortness of breath, cough - Related Data Home Medications Medication Instructions Recorded Confirmed Gabapentin 800 mg PO TID 05/10/14 02/26/17 Hydrocodone/Acetaminophen [[place] 1 tab PO QID PRN 08/07/16 02/26/17 10-325] Albuterol Nebulized [Ventolin 2.5 mg INHALATION RT-QID PRN 11/20/16 02/26/17 Nebulized] Dextroamphetamine/Amphetamine 20 mg PO BID 11/20/16 02/26/17 [Adderall] Doxepin HCl [SINEquan] 50 mg PO HS 11/20/16 02/26/17 Multivit-Min/Iron/Folic/Lutein 1 tab PO DAILY 12/23/16 02/26/17 [Centrum Silver Women Tablet] FLUoxetine HCL [Sarafem] 60 mg PO DAILY 02/26/17 02/26/17 Fluticasone/Salmeterol [Advair Hfa 2 puff INHALATION RT-BID 02/26/17 02/26/17 230-21 Mcg Inhaler] Previous Rx's Medication Instructions Recorded Albuterol Sulfate [Proair Hfa] 1 - 2 puff INHALATION Q4H PRN #1 02/26/17 inhaler Azithromycin [Zithromax Z-pack] 0 mg PO DIRECTED #6 tab 02/26/17 predniSONE 50 mg PO DAILY #5 tab 02/26/17 Allergies Allergy/AdvReac Type Severity Reaction Status Date / Time shellfish derived Allergy Rash/Hives Verified 02/26/17 19:39 Review of Systems ROS Statement: Those systems with pertinent positive or pertinent negative responses have been documented in the HPI. ROS Other: All systems not noted in ROS Statement are negative. Past Medical History Past Medical History: Asthma, COPD, Fibromyalgia Additional Past Medical History / Comment(s): IRREGULAR VAGINAL BLEEDING, STEROIDS WITHIN LAST 3 MOS, neck pain History of Any Multi-Drug Resistant Organisms: MRSA Date of last positivie culture/infection: UNK MDRO Source:: Left axilla Past Surgical History: Orthopedic Surgery, Tonsillectomy, Tubal Ligation Additional Past Surgical History / Comment(s): TOVA SHOULDER,TOVA WRISTS,LT COLLAR BONE, MRSA on side 8-10years ago Past Anesthesia/Blood Transfusion Reactions: No Reported Reaction Past Psychological History: ADD/ADHD, Anxiety, Depression Smoking Status: Never smoker Past Alcohol Use History: None Reported Past Drug Use History: None Reported - Past Family History Father Family Medical History: Cancer Additional Family Medical History / Comment(s): LUNG General Exam - General Exam Comments Initial Comments: This is a well-developed well-nourished awake alert oriented 3 female General appearance: alert, anxious, in distress Head exam: Present: atraumatic, normocephalic, normal inspection Eye exam: Present: normal appearance, PERRL, EOMI. Absent: scleral icterus, conjunctival injection, periorbital swelling ENT exam: Present: normal exam, mucous membranes moist Neck exam: Present: normal inspection. Absent: tenderness, meningismus, lymphadenopathy Respiratory exam: Present: wheezes, accessory muscle use, decreased breath sounds. Absent: respiratory distress, rales, rhonchi, stridor Cardiovascular Exam: Present: regular rate, normal rhythm, normal heart sounds. Absent: systolic murmur, diastolic murmur, rubs, gallop, clicks GI/Abdominal exam: Present: soft, normal bowel sounds. Absent: distended, tenderness, guarding, rebound, rigid Extremities exam: Present: normal inspection, full ROM, normal capillary refill. Absent: tenderness, pedal edema, joint swelling, calf tenderness Back exam: Present: normal inspection Neurological exam: Present: alert, oriented X3, CN II-XII intact Psychiatric exam: Present: normal affect, normal mood Skin exam: Present: warm, dry, intact, normal color. Absent: rash Course Vital Signs 03/05/17 03/05/17 03/05/17 03:18 03:24 03:35 Temperature 100.2 F H Pulse Rate 106 H 103 H 100 Respiratory 22 Rate Blood Pressure 148/79 O2 Sat by Pulse 95 Oximetry - Reevaluation(s) Reevaluation #1: 03/05/17 05:11 Reevaluation patient reveals minimal improvement she still has diffuse wheezing Medical Decision Making - Medical Decision Making I did discuss findings with the patient she will be admitted with pulmonary consultation she did have an appointment to see Dr. Holguin later this afternoon. - Lab Data Result diagrams: 03/05/17 03:25 03/05/17 03:25 Lab Results 03/05/17 03/05/17 03/05/17 Range/Units 03:25 03:25 03:25 WBC 9.9 (3.8-10.6) k/uL RBC 4.93 (3.80-5.40) m/uL Hgb 14.0 (11.4-16.0) gm/dL Hct 41.5 (34.0-46.0) % MCV 84.1 (80.0-100.0) fL MCH 28.4 (25.0-35.0) pg MCHC 33.8 (31.0-37.0) g/dL RDW 13.7 (11.5-15.5) % Plt Count 344 (150-450) k/uL Neutrophils % 52 % Lymphocytes % 24 % Monocytes % 8 % Eosinophils % 13 % Basophils % 0 % Neutrophils # 5.2 (1.3-7.7) k/uL Lymphocytes # 2.4 (1.0-4.8) k/uL Monocytes # 0.8 (0-1.0) k/uL Eosinophils # 1.3 H (0-0.7) k/uL Basophils # 0.0 (0-0.2) k/uL PT (9.0-12.0) sec INR (<1.1) APTT (22.0-30.0) sec D-Dimer (<0.60) mg/L FEU Sodium 139 (137-145) mmol/L Potassium 4.4 (3.5-5.1) mmol/L Chloride 103 (98-107) mmol/L Carbon Dioxide 22 (22-30) mmol/L Anion Gap 14 mmol/L BUN 17 (7-17) mg/dL Creatinine 0.80 (0.52-1.04) mg/dL Est GFR (MDRD) Af Amer >60 (>60 ml/min/1.73 sqM) Est GFR (MDRD) Non-Af >60 (>60 ml/min/1.73 sqM) Glucose 120 H (74-99) mg/dL Calcium 9.8 (8.4-10.2) mg/dL Magnesium 2.1 (1.6-2.3) mg/dL Total Bilirubin 0.8 (0.2-1.3) mg/dL AST 32 (14-36) U/L ALT 33 (9-52) U/L Alkaline Phosphatase 96 (38-126) U/L Total Creatine Kinase 86 (30-135) U/L CK-MB (CK-2) 1.3 (0.0-2.4) ng/mL CK-MB (CK-2) Rel Index 1.5 Troponin I <0.012 (0.000-0.034) ng/mL NT-Pro-B Natriuret Pep pg/mL Total Protein 7.4 (6.3-8.2) g/dL Albumin 4.7 (3.5-5.0) g/dL 03/05/17 03/05/17 Range/Units 03:25 03:25 WBC (3.8-10.6) k/uL RBC (3.80-5.40) m/uL Hgb (11.4-16.0) gm/dL Hct (34.0-46.0) % MCV (80.0-100.0) fL MCH (25.0-35.0) pg MCHC (31.0-37.0) g/dL RDW (11.5-15.5) % Plt Count (150-450) k/uL Neutrophils % % Lymphocytes % % Monocytes % % Eosinophils % % Basophils % % Neutrophils # (1.3-7.7) k/uL Lymphocytes # (1.0-4.8) k/uL Monocytes # (0-1.0) k/uL Eosinophils # (0-0.7) k/uL Basophils # (0-0.2) k/uL PT 10.8 (9.0-12.0) sec INR 1.1 (<1.1) APTT 23.6 (22.0-30.0) sec D-Dimer 0.33 (<0.60) mg/L FEU Sodium (137-145) mmol/L Potassium (3.5-5.1) mmol/L Chloride (98-107) mmol/L Carbon Dioxide (22-30) mmol/L Anion Gap mmol/L BUN (7-17) mg/dL Creatinine (0.52-1.04) mg/dL Est GFR (MDRD) Af Amer (>60 ml/min/1.73 sqM) Est GFR (MDRD) Non-Af (>60 ml/min/1.73 sqM) Glucose (74-99) mg/dL Calcium (8.4-10.2) mg/dL Magnesium (1.6-2.3) mg/dL Total Bilirubin (0.2-1.3) mg/dL AST (14-36) U/L ALT (9-52) U/L Alkaline Phosphatase (38-126) U/L Total Creatine Kinase (30-135) U/L CK-MB (CK-2) (0.0-2.4) ng/mL CK-MB (CK-2) Rel Index Troponin I (0.000-0.034) ng/mL NT-Pro-B Natriuret Pep 88 pg/mL Total Protein (6.3-8.2) g/dL Albumin (3.5-5.0) g/dL - EKG Data -: EKG Interpreted by Me EKG shows normal: sinus rhythm (Sinus tachycardia rate of 11 VA interval 144 QRS 80 QT since QTC of 360/466 left axis deviation old inferior changes) - Radiology Data Interpreted by me: Review the x-ray shows some evidence of atelectasis in possible infiltrates. Critical Care Time Critical Care Time: Yes Critical Care Time: 31 minutes of critical care time which includes initial monitoring the EMS run and discussed with paramedics. History physical labs x-rays of the patient evaluation of the same. Reevaluation the patient response to therapy and several occasions. Admission orders discussed with him and physician documentation of the above. Disposition Clinical Impression: COPD exacerbation, Adult respiratory distress syndrome, Failure of outpatient treatment, Pneumonitis, Febrile illness, acute Disposition: ADMITTED IP TO THIS [facility] Condition: Stable Referrals: Eric Loo DO [Primary Care Provider] - 1-2 days
[2017-03-05 03:45] LABS: Basophils % (A) 0 %; CH 28.5; Eosinophils # (A) 1.3 k/uL (0-0.7); Eosinophils % (A) 13 %; HCT 41.5 % (34.0-46.0); HDW 2.73; Luc # (Auto) 0.26; Luc % (Auto) 3; Lymphocytes # (A) 2.4 k/uL (1.0-4.8); Lymphocytes % (A) 24 %; MCH 28.4 pg (25.0-35.0); MCHC 33.8 g/dL (31.0-37.0); MCV 84.1 fL (80.0-100.0); Mean Platelet Volume 6.5; Monocytes # (A) 0.8 k/uL (0-1.0); Monocytes % (A) 8 %; Neutrophils # (A) 5.2 k/uL (1.3-7.7); Neutrophils % (A) 52 %; RBC 4.93 m/uL (3.80-5.40); RDW 13.7 % (11.5-15.5); WBC 9.9 k/uL (3.8-10.6); WBC (Perox) 9.72
--- NOTE | 2017-03-05 04:03 | XR ---
EXAM: XR Chest, 2 Views CLINICAL HISTORY: Reason: difficulty breathing TECHNIQUE: Frontal and lateral views of the chest. COMPARISON: 02/26/17 FINDINGS: Lungs: Mild streaky densities in the lung bases . Pleural space: Unremarkable. No pneumothorax. Heart: Unremarkable. No cardiomegaly. Mediastinum: Unremarkable. Bones/joints: Unremarkable. Old posttraumatic changes seen about the distal left clavicle Tubes, lines and devices: Overlying chest leads obscure portions of the chest. IMPRESSION: Mild atelectasis versus early infiltrate in the lung bases.
[2017-03-05 04:05] LABS: INR 1.1 (<1.1); Partial Thromboplastin Time 23.6 sec (22.0-30.0); Prothrombin Time 10.8 sec (9.0-12.0)
[2017-03-05 04:13] LABS: ALT 33 U/L (9-52); AST 32 U/L (14-36); Alkaline Phosphatase 96 U/L (38-126); Anion Gap 14 mmol/L; Blood Urea Nitrogen 17 mg/dL (7-17); Calcium 9.8 mg/dL (8.4-10.2); Carbon Dioxide 22 mmol/L (22-30); Chloride 103 mmol/L (98-107); Creatine Kinase 86 U/L (30-135); Glucose 120 mg/dL (74-99); Magnesium 2.1 mg/dL (1.6-2.3); Non-African American GFR(MDRD) >60 (>60 ml/min/1.73 sqM); Potassium 4.4 mmol/L (3.5-5.1); Sodium 139 mmol/L (137-145); Total Bilirubin 0.8 mg/dL (0.2-1.3); Total Protein 7.4 g/dL (6.3-8.2)
[2017-03-05 04:25] LABS: Creatine Kinase MB 1.3 ng/mL (0.0-2.4); Troponin I <0.012 ng/mL (0.000-0.034)
[2017-03-05] MEDS ORDERED: PIPERACILLIN-TAZOBACTAM 3.375 GM in DEXTROSE/WATER 1 50ML.BAG IVPB STA (05:13)
[2017-03-05] MEDS: methylPREDNISolone SOD SUCCI 125 MG/2 ML VIAL IV SCH ×3 (05:39→17:37)
[2017-03-05 07:22] LABS: Glucose,Whole Blood 133 mg/dL (75-99)
[2017-03-05] MEDS: IPRATROPIUM-ALBUTEROL 3 ML NEB INHALATION SCH ×5 (07:23→23:24)
[2017-03-05] MEDS ORDERED: IPRATROPIUM-ALBUTEROL 3 ML NEB INHALATION PRN (07:34)
[2017-03-05] MEDS: SODIUM CHLORIDE 0.9% 1,000 ML IV SCH ×2 (08:01→15:56)
[2017-03-05] MEDS: FLUoxetine HCL 20 MG CAP PO SCH (08:02)
[2017-03-05] MEDS: GABAPENTIN 400 MG CAP PO SCH ×3 (08:02→20:40)
[2017-03-05] MEDS: HYDROcodone/APAP 10-325MG 1 EACH TAB PO PRN ×3 (08:05→20:48)
[2017-03-05] MEDS ORDERED: NON-FORMULARY DRUG (Dextroamphetamine/Amphetamine [Adderall] 20 MG) PO SCH (09:00)
[2017-03-05 11:28] LABS: Glucose,Whole Blood 155 mg/dL (75-99)
--- NOTE | 2017-03-05 12:13 | P.CNPUL ---
History of Present Illness Consult date: 03/05/17 Reason for consult: dyspnea, cough, asthma Chief complaint: Shortness of breath History of present illness: Consult dated 03/05/2017 56-year-old female sees Dr. Nell Loo as her primary doctor. Apparently has a history of chronic bronchial asthma which is quite severe. She apparently sees many of us in the office. She apparently sees whoever is available. He also sees her nurse practitioner from time to time. Anyway, she was brought in by EMS for difficulty breathing chest congestion tightness wheezing cough and phlegm production. She just finished 5 days of steroids and antibiotics without much benefit. I believe that was given to her by her primary doctor. Anyway the patient's feeling a bit better today. Still very short of breath but chest congestion coughing wheezing and tightness. Just feels sort of miserable. Ask about whether or not she might be a good candidate for chronic steroid therapy. We did say that she might be. Other option for her would be bronchial thermoplasty the use of the anti-IgE medication, Xolair, and/or [id number] monoclonal antibodies which are currently still available. Review of Systems A 12 point review of system is positive for chest tightness wheezing coughing shortness of breath chest congestion and phlegm production all under the pulmonary system. The rest of the 12 point review of system is unremarkable. Past Medical History Past Medical History: Asthma, COPD, Fibromyalgia, Osteoarthritis (OA), Pneumonia Additional Past Medical History / Comment(s): Hepatitis C with tx and now cured , chronic cervical and back pain, DDD, scoliosis. History of Any Multi-Drug Resistant Organisms: MRSA Date of last positivie culture/infection: 10/07/08 MDRO Source:: Left axilla Past Surgical History: Orthopedic Surgery, Tonsillectomy, Tubal Ligation Additional Past Surgical History / Comment(s): 12/29/16 bronchoscopy with BAL, TOVA SHOULDER,TOVA WRISTS,LT COLLAR BONE, L ovarian cystectomy Past Anesthesia/Blood Transfusion Reactions: No Reported Reaction Smoking Status: Never smoker - Past Family History Father Family Medical History: Cancer Additional Family Medical History / Comment(s): Father of LUNG cancer at the age of 69yrs. He was a smoker. Mother Family Medical History: COPD Additional Family Medical History / Comment(s): Mother of COPD at the age of 71 yrs. Medications and Allergies Home Medications Medication Instructions Recorded Confirmed Type Gabapentin 800 mg PO TID 05/10/14 03/05/17 History Hydrocodone/Acetaminophen [[place] 1 tab PO QID PRN 08/07/16 03/05/17 History 10-325] Albuterol Nebulized [Ventolin 2.5 mg INHALATION RT-QID PRN 11/20/16 03/05/17 History Nebulized] Dextroamphetamine/Amphetamine 20 mg PO BID 11/20/16 03/05/17 History [Adderall] Doxepin HCl [SINEquan] 50 mg PO HS 11/20/16 03/05/17 History Multivit-Min/Iron/Folic/Lutein 1 tab PO DAILY 12/23/16 03/05/17 History [Centrum Silver Women Tablet] FLUoxetine HCL [Sarafem] 60 mg PO DAILY 02/26/17 03/05/17 History Fluticasone/Salmeterol [Advair Hfa 2 puff INHALATION RT-BID 02/26/17 03/05/17 History 230-21 Mcg Inhaler] Allergies Allergy/AdvReac Type Severity Reaction Status Date / Time shellfish derived Allergy Rash/Hives Verified 03/05/17 07:47 Physical Exam Osteopathic Statement: *. No significant issues noted on an osteopathic structural exam other than those noted in the History and Physical/Consult. Vitals: Vital Signs Temp Pulse Pulse Resp BP BP Pulse Ox 03/05/17 11:39 100 03/05/17 11:20 100 03/05/17 07:31 104 H 95 03/05/17 07:24 100 03/05/17 06:35 98 F 104 H 23 150/87 93 L 03/05/17 06:18 98.8 F 03/05/17 05:20 101 H 20 130/66 99 03/05/17 03:35 100 03/05/17 03:24 103 H 03/05/17 03:18 100.2 F H 106 H 22 148/79 95 Intake and Output 03/04/17 03/05/17 03/05/17 22:59 06:59 14:59 Other: Weight 72.575 kg No acute distress, oriented 3. Very fidgety. HEENT examination is grossly unremarkable. Mucous membranes are moist. No oral lesions. Neck supple. Full range of motion. No adenopathy or megaly. Cardiovascular examination reveals regular rhythm rate. S1-S2 normal. No S3- S4 or murmur. Lungs reveal coarse inspiratory next 3 wheezes and rhonchi. Her sounds diminished. Slight prolongation. The patient wheezes and coughs on forced maneuver. Abdomen soft bowel sounds are heard. Extremities are intact. No cyanosis clubbing or edema. Skin without rash. Neurologic examination is nonfocal. Results - Laboratory Findings CBC and BMP: 03/05/17 03:25 03/05/17 03:25 PT/INR, D-dimer PT 10.8 sec (9.0-12.0) 03/05/17 03:25 INR 1.1 (<1.1) 03/05/17 03:25 D-Dimer 0.33 mg/L FEU (<0.60) 03/05/17 03:25 Abnormal lab findings: Abnormal Labs 03/05/17 03/05/17 03/05/17 03:25 03:25 07:21 Eosinophils # 1.3 H Glucose 120 H POC Glucose (mg/dL) 133 H 03/05/17 11:24 Eosinophils # Glucose POC Glucose (mg/dL) 155 H - Diagnostic Findings Chest x-ray: image reviewed (Medications labs and x-rays are all reviewed.) Assessment and Plan (1) Fibromyalgia Status: Acute (2) Asthma with exacerbation Status: Acute Plan: Plan dated 03/05/2017 The patient's medications will be reviewed. She needs a short acting beta beta agonist short acting muscarinic antagonist a long-acting beta agonist and inhaled corticosteroid. In addition, she needs systemic corticosteroids and some pleural oral antibiotic. We will consider giving her chronic prednisone therapy. We'll make sure she has an appointment in the office to see one of us. I'll try to review her pulmonary function test. Additional recommendations suggestions are forthcoming. Time with Patient: Greater than 30
[2017-03-05] MEDS: INSULIN LISPRO (humaLOG) 300 UNIT/3 ML VIAL SQ SCH ×3 (12:45→22:40)
[2017-03-05 14:02] LABS: Hemoglobin A1C 5.8 % (4.2-6.1)
[2017-03-05] MEDS: PIPERACILLIN-TAZOBACTAM 3.375 GM in DEXTROSE/WATER 1 50ML.BAG IVPB SCH (14:31)
[2017-03-05] MEDS ORDERED: TEMAZEPAM 15 MG CAP PO PRN (15:59)
[2017-03-05 17:17] LABS: Glucose,Whole Blood 151 mg/dL (75-99)
--- NOTE | 2017-03-05 17:58 | HP ---
DATE OF ADMISSION: CHIEF COMPLAINT: Shortness of breath. HISTORY OF PRESENT ILLNESS: This 56-year-old woman with a past medical history of multiple medical problems, asthma, COPD, fibromyalgia, DJD, history of pneumonia, history of hepatitis C, history of cervical degenerative joint disease, history of MRSA, history of ADD, ADHD, anxiety, depression, being followed by Dr. Nell Loo in the outpatient setting, is complaining of increased shortness of breath over the past several days. The patient was on antibiotics and steroids. Because of lack of improvement patient came to [facility] and admitted for further evaluation and treatment. There is no history of fever, rigors. No history of headache, loss of consciousness, seizures. The chest x-ray done on admission showed mild atelectasis versus early infiltrate on the lung base, which was reviewed personally by me. Evaluation with Dr. Holguin is also on going also. There is no history of fever, rigors. No history of headache, loss of consciousness, seizures. No history of smoking. PAST MEDICAL HISTORY: Asthma, COPD, fibromyalgia, degenerative joint disease, history of pneumonia, history of ADD, ADHD, history of depression. Medications prior to admission include home medications: 1. Hydrocodone 1 tablet q.i.d. p.r.n. 2. ProAir HFA 1 to 2 puffs q.4 p.r.n. 3. Ventolin nebulizer 2.5 q.i.d. p.r.n. 4. Multivitamin 1 p.o. daily. 5. Gabapentin 800 mg p.o. t.i.d. 6. Advair HFA 2 puffs b.i.d. 7. Sarafem 60 mg p.o. daily. 8. Sinequan 50 mg q.h.s. 9. Adderall 20 mg p.o. b.i.d. ALLERGIES: FISH OIL. FAMILY HISTORY: History of cancer in the family. SOCIAL HISTORY: No history of smoking. No history of alcohol. REVIEW OF SYSTEMS: ENT: No diminished hearing. No diminished vision. CARDIOVASCULAR: No angina. RESPIRATORY: As mentioned earlier. GI: No nausea. : No dysuria. NERVOUS SYSTEM: No numbness or weakness. ALLERGY/IMMUNOLOGY: As mentioned earlier. MUSCULOSKELETAL: As mentioned earlier. HEMATOLOGY: No history of anemia. ENDOCRINE: No history of diabetes or hypothyroidism. CONSTITUTIONAL: As mentioned earlier. DERMATOLOGY: Negative. RHEUMATOLOGY: Negative. PSYCHIATRY: As mentioned earlier. PHYSICAL EXAMINATION: Alert and oriented x3. Pulse 101, blood pressure 150/80, respirations 23, temperature 98 degrees, pulse ox 98% on 2 liters. HEENT: Conjunctivae normal. Oral mucosa moist. NECK: No jugular venous distention. No carotid bruit. No lymph node enlargement. CARDIOVASCULAR: S1 and S2, muffled. RESPIRATORY: Breath sounds diminished at the bases. Bilateral scattered rhonchi, respiratory wheezing and crackles. Breathing efforts are markedly increased. ABDOMEN: Soft, nontender. No mass palpable. LEGS: No edema, no swelling. NERVOUS SYSTEM: Higher function as mentioned. Moves all four limbs. No focal motor deficits. LYMPHATIC: No lymphadenopathy in the neck, axillae or groin. SKIN: No ulcer, rash or bleeding. JOINTS: No active deforming arthropathy. LABS: wbc is 1.0, otherwise, CBC within normal limits. Glucose 120. Labs are noted. Chest x-ray reviewed. ASSESSMENT: 1. Chronic obstructive pulmonary disease with acute bronchial asthma acute exacerbation with acute purulent tracheobronchitis with failure of outpatient treatment. 2. Eosinophilia. 3. Increased random blood sugar, possibly secondary to steroids. 4. History of fibromyalgia 5. History of degenerative joint disease. 6. History of pneumonia. 7. History of hepatitis C. 8. History of degenerative joint disease. 9. History methicillin-resistant Staphylococcus aureus. . 10. History of attention deficit disorder and attention deficit hyperactivity disorder. 11. Anxiety and depression, not otherwise specified. RECOMMENDATIONS AND DISCUSSION: In this 56-year-old woman who presented with multiple complex medical issues, we will monitor the patient closely. Continue the current medications. continue symptomatic treatment. I recommend broad-spectrum IV antibiotics and IV steroids. Monitor blood sugars closely, bronchodilators. Otherwise, we will continue to monitor. Closely follow with Dr. Holguin. DVT prophylaxis. Further recommendations to follow. Copy of dictation forwarded to Dr. Nell Loo, who is primary physician. [facility] NETWORK[facility]
[2017-03-05] MEDS: FORMOTEROL FUMARATE 20 MCG/2 ML NEBU INHALATION SCH (19:18)
[2017-03-05] MEDS: BUDESONIDE 1 MG/2 ML NEBU INHALATION SCH (19:19)
[2017-03-05] MEDS: DOXEPIN 25 MG CAP PO SCH (20:40)
[2017-03-05] MEDS: HEPARIN SODIUM,PORCINE 5,000 UNIT/ML 1 ML VIAL SQ SCH (20:41)
[2017-03-05 21:29] LABS: Glucose,Whole Blood 199 mg/dL (75-99)
[2017-03-06] MEDS: methylPREDNISolone SOD SUCCI 125 MG/2 ML VIAL IV SCH ×3 (00:27→12:39)
[2017-03-06] MEDS: PIPERACILLIN-TAZOBACTAM 3.375 GM in DEXTROSE/WATER 1 50ML.BAG IVPB SCH ×4 (00:28→23:22)
[2017-03-06] MEDS: IPRATROPIUM-ALBUTEROL 3 ML NEB INHALATION SCH ×6 (03:22→23:21)
[2017-03-06] MEDS: HYDROcodone/APAP 10-325MG 1 EACH TAB PO PRN ×5 (03:55→20:17)
[2017-03-06 07:34] LABS: Glucose,Whole Blood 160 mg/dL (75-99)
[2017-03-06] MEDS: BUDESONIDE 1 MG/2 ML NEBU INHALATION SCH ×2 (07:42→19:52)
[2017-03-06] MEDS: FORMOTEROL FUMARATE 20 MCG/2 ML NEBU INHALATION SCH ×2 (07:42→19:52)
[2017-03-06] MEDS: INSULIN LISPRO (humaLOG) 300 UNIT/3 ML VIAL SQ SCH ×4 (08:15→20:21)
[2017-03-06] MEDS: PANTOPRAZOLE 40 MG TABLET PO SCH (08:16)
[2017-03-06] MEDS: FLUoxetine HCL 20 MG CAP PO SCH (08:21)
[2017-03-06] MEDS: GABAPENTIN 400 MG CAP PO SCH ×3 (08:22→20:17)
[2017-03-06] MEDS: HEPARIN SODIUM,PORCINE 5,000 UNIT/ML 1 ML VIAL SQ SCH ×2 (08:22→20:20)
[2017-03-06 08:42] LABS: Basophils % (A) 0 %; CH 27.8; CHCM 31.8; Eosinophils % (A) 0 %; HCT 38.7 % (34.0-46.0); HDW 2.59; HGB 12.6 gm/dL (11.4-16.0); Luc % (Auto) 1; Lymphocytes # (A) 0.9 k/uL (1.0-4.8); Lymphocytes % (A) 7 %; MCH 28.5 pg (25.0-35.0); MCHC 32.5 g/dL (31.0-37.0); MCV 87.8 fL (80.0-100.0); Mean Platelet Volume 6.9; Monocytes # (A) 0.4 k/uL (0-1.0); Monocytes % (A) 3 %; Neutrophils # (A) 12.2 k/uL (1.3-7.7); Neutrophils % (A) 90 %; RBC 4.41 m/uL (3.80-5.40); RDW 13.8 % (11.5-15.5); WBC 13.6 k/uL (3.8-10.6); WBC (Perox) 13.98
[2017-03-06 08:52] LABS: Anion Gap 14 mmol/L; Blood Urea Nitrogen 18 mg/dL (7-17); Calcium 9.6 mg/dL (8.4-10.2); Carbon Dioxide 24 mmol/L (22-30); Chloride 106 mmol/L (98-107); Glucose 142 mg/dL (74-99); Non-African American GFR(MDRD) >60 (>60 ml/min/1.73 sqM); Potassium 4.4 mmol/L (3.5-5.1); Sodium 144 mmol/L (137-145)
[2017-03-06 11:39] LABS: Glucose,Whole Blood 148 mg/dL (75-99)
--- NOTE | 2017-03-06 12:58 | PN ---
This is a very pleasant woman that was seen a couple days ago. She has a history of chronic bronchial asthma. She came in with an asthma exacerbation. I guess she sees all of us in the office: Myself, Dr. Rizzo, Dr. Rodriguez and Dr. Saul. I do not quite remember her. She is 56. Her primary is Dr. Loo. Anyway, she was quite severe yesterday. Feeling much better today. Less short of breath. Coughing still. Wheezing still. Still not quite certainly ready for discharge. Anyway, the patient is feeling a bit better. Current vital signs are reviewed. Temperature 98.1, heart rate 88, respiratory rate 16, blood pressure 111/67, mean 81, room air saturation 93%. Appears in no acute distress. HEENT is grossly unremarkable. Mucous membranes are moist. No oral lesions. NECK: Supple. Full range of motion. No adenopathy or thyromegaly. Neck veins are flat. Cardiovascular reveals regular rhythm and rate. Heart rate 88. S1, S2 normal. No S3, S4 or murmur. Lungs reveal diffuse inspiratory and expiratory wheezes and rhonchi. Breath sounds diminished. There is prolongation. The patient wheezes and coughs on forced maneuver. ABDOMEN: Soft. Bowel sounds are heard. EXTREMITIES: Intact. No cyanosis, clubbing or edema. Skin without rash. Neurological is nonfocal. Labs are reviewed. White count 13.6, hemoglobin 12.6, hematocrit 38.7, platelet count 304,000. Sodium, potassium, chloride and CO2 all normal. BUN and creatinine were 18 and 0.69. Medications are reviewed. No new x-rays to report. ASSESSMENT: 1. Asthma/ chronic obstructive pulmonary disease exacerbation complicated by purulent tracheobronchitis. 2. Fibromyalgia. 3. Acute anxiety. PLAN: The patient is on good medications, including short-acting beta agonist, short acting muscarinic antagonist, long-acting beta agonist and inhaled corticosteroids. The patient is also receiving oral antibiotics and systemic corticosteroids. Will continue to follow. Likely discharge in a day or two. Probably not before Wednesday, I would think at the earliest. Again prognosis is guarded. Will continue to follow. She is a lifelong nonsmoker.
[2017-03-06] MEDS: ALPRAZolam 0.25 MG TAB PO PRN (15:59)
[2017-03-06 16:49] LABS: Glucose,Whole Blood 189 mg/dL (75-99)
[2017-03-06] MEDS: methylPREDNISolone SOD SUCCI 40 MG/ML 1 ML VIAL IV SCH (17:35)
[2017-03-06] MEDS: DOXEPIN 25 MG CAP PO SCH (20:18)
[2017-03-06 20:21] LABS: Glucose,Whole Blood 126 mg/dL (75-99)
[2017-03-07] MEDS: methylPREDNISolone SOD SUCCI 40 MG/ML 1 ML VIAL IV SCH ×4 (00:03→23:13)
[2017-03-07] MEDS: IPRATROPIUM-ALBUTEROL 3 ML NEB INHALATION SCH ×6 (03:17→23:33)
[2017-03-07 07:31] LABS: Basophils % (A) 0 %; CH 27.5; CHCM 32.2; Eosinophils % (A) 0 %; HCT 36.1 % (34.0-46.0); HDW 2.61; HGB 12.1 gm/dL (11.4-16.0); Luc # (Auto) 0.13; Luc % (Auto) 1; Lymphocytes # (A) 0.8 k/uL (1.0-4.8); Lymphocytes % (A) 5 %; MCH 28.7 pg (25.0-35.0); MCHC 33.4 g/dL (31.0-37.0); MCV 85.9 fL (80.0-100.0); Mean Platelet Volume 6.8; Monocytes # (A) 0.4 k/uL (0-1.0); Monocytes % (A) 3 %; Neutrophils # (A) 14.4 k/uL (1.3-7.7); Neutrophils % (A) 91 %; RDW 13.8 % (11.5-15.5); WBC 15.8 k/uL (3.8-10.6); WBC (Perox) 16.54
[2017-03-07 07:49] LABS: Glucose,Whole Blood 156 mg/dL (75-99)
[2017-03-07 07:56] LABS: Anion Gap 12 mmol/L; Blood Urea Nitrogen 16 mg/dL (7-17); Calcium 9.6 mg/dL (8.4-10.2); Carbon Dioxide 20 mmol/L (22-30); Chloride 111 mmol/L (98-107); Glucose 153 mg/dL (74-99); Non-African American GFR(MDRD) >60 (>60 ml/min/1.73 sqM); Potassium 4.4 mmol/L (3.5-5.1); Sodium 143 mmol/L (137-145)
[2017-03-07] MEDS: INSULIN LISPRO (humaLOG) 300 UNIT/3 ML VIAL SQ SCH ×4 (08:40→20:20)
[2017-03-07] MEDS: FORMOTEROL FUMARATE 20 MCG/2 ML NEBU INHALATION SCH ×2 (08:58→21:41)
[2017-03-07] MEDS: BUDESONIDE 1 MG/2 ML NEBU INHALATION SCH ×2 (08:58→21:41)
[2017-03-07] MEDS: PIPERACILLIN-TAZOBACTAM 3.375 GM in DEXTROSE/WATER 1 50ML.BAG IVPB SCH ×3 (09:03→23:12)
[2017-03-07] MEDS: PANTOPRAZOLE 40 MG TABLET PO SCH (09:03)
[2017-03-07] MEDS: FLUoxetine HCL 20 MG CAP PO SCH (09:03)
[2017-03-07] MEDS: HEPARIN SODIUM,PORCINE 5,000 UNIT/ML 1 ML VIAL SQ SCH ×2 (09:04→20:20)
[2017-03-07] MEDS: GABAPENTIN 400 MG CAP PO SCH ×3 (09:04→20:20)
[2017-03-07] MEDS: HYDROcodone/APAP 10-325MG 1 EACH TAB PO PRN ×4 (09:06→23:12)
--- NOTE | 2017-03-07 09:06 | PN ---
DATE OF SERVICE: 03/05/2017 This 56-year-old woman who was admitted with shortness of breath and chronic obstructive pulmonary disease. No chest pain, no palpitations. No fever. On exam, alert and oriented x3. Pulse 92, blood pressure 130/82, respiration 18, temperature 97.4, pulse ox 94% on room air. HEENT: Conjunctivae normal. NECK: No jugular venous distention. CARDIOVASCULAR: S1 and S2. RESPIRATORY: Breath sounds diminished at the bases. A few scattered rhonchi and crackles. Expiratory wheezing also present. ABDOMEN: Soft, nontender. LEGS: No edema, no swelling. NERVOUS SYSTEM: No focal deficits. LABS: WBC 13.6. Other labs are noted. ASSESSMENT: 1. Chronic obstructive pulmonary disease, asthma, bronchial asthma acute exacerbation with acute purulent tracheobronchitis and failure of outpatient treatment. 2. Eosinophilia. 3. Increased random blood sugar, possible secondary to steroids. 4. History of fibromyalgia. 5. History of degenerative joint disease. 6. History of pneumonia. 7. History of hepatitis C. 8. History of methicillin-resistant Staphylococcus aureus. 9. History of attention deficit disorder, attention deficit hyperactivity disorder. 10. Anxiety, depression, not otherwise specified. 11. FULL CODE. RECOMMENDATIONS AND DISCUSSION: In this 56-year-old woman who presented with multiple complex medical issues, will monitor the patient closely. Continue current medications, continue symptomatic treatment. Continue intensive bronchodilators, will taper the IV steroids. Otherwise, continue the current medications and further recommendations to follow.
[2017-03-07] MEDS: ALPRAZolam 0.25 MG TAB PO PRN (09:14)
[2017-03-07 12:24] LABS: Glucose,Whole Blood 182 mg/dL (75-99)
[2017-03-07] MEDS: BENZOCAINE/MENTHOL LOZENG 1 EACH LOZENGE MUCOUS MEM PRN ×2 (12:38→17:40)
--- NOTE | 2017-03-07 13:41 | PN ---
56-year-old female admitted with a diagnosis of asthma exacerbation. The patient is doing relatively well. Feeling better. Not quite ready for discharge. The patient does have some ongoing wheezing, chest tightness, cough. The patient is feeling better though. Her primary physician is Dr. Loo. She has seen us all in the office. She is improved a little, but not yet ready for discharge. Anyway, her vital signs are stable. Temperature 97.8, heart rate 76, respiratory 16, blood pressure 114/62, mean 79, room air saturation 93%. Appears in no acute distress. HEENT examination is grossly unremarkable. Not wearing any supplemental oxygen. She has a bit of a perez face. Neck is supple. Full range of motion. No adenopathy or thyromegaly. Neck veins are flat. Cardiovascular examination reveals regular rhythm and rate. S1, S2 normal, S4, murmur. Heart rate 76. It is regular. Lungs reveal inspiratory and expiratory wheezes and rhonchi. Breath sounds are diminished. Adventitious lung sounds are more prominent on forced maneuver. There is prolongation on forced maneuver. ABDOMEN: Soft. Bowel sounds are heard. EXTREMITIES: Intact. No cyanosis, clubbing, or edema. Skin without rash. NEUROLOGICAL: Nonfocal. Labs are reviewed. White count 15.8, hemoglobin and hematocrit and platelet count all normal. Sodium and potassium normal. Chloride is 111, CO2 of 20. Anion gap is normal. BUN and creatinine were normal. Microbiology is all negative. No new x-rays to report. Medications are reviewed. ASSESSMENT: 1. Severe asthma exacerbation complicated by purulent tracheobronchitis. 2. Fibromyalgia. 3. Acute anxiety. PLAN: The patient will continue on her current medications. We will continue to follow closely. The patient will likely not be discharged until Wednesday or Wednesday. If she does not improve, she may benefit from bronchoscopy. Will continue to follow. She will need follow-up visit with one of us in the office.
[2017-03-07 17:25] LABS: Glucose,Whole Blood 110 mg/dL (75-99)
[2017-03-07 20:11] LABS: Glucose,Whole Blood 198 mg/dL (75-99)
[2017-03-07] MEDS: DOXEPIN 25 MG CAP PO SCH (20:20)
[2017-03-08] MEDS: IPRATROPIUM-ALBUTEROL 3 ML NEB INHALATION SCH ×6 (03:54→23:00)
[2017-03-08] MEDS: HYDROcodone/APAP 10-325MG 1 EACH TAB PO PRN ×4 (04:18→22:48)
--- NOTE | 2017-03-08 06:37 | PN ---
DATE OF SERVICE: 03/07/2017 This 56-year-old woman who was admitted with COPD, asthma, acute exacerbation, acute purulent tracheobronchitis, still has significant shortness of breath. Dr. Holguin is following the patient. No chest pain or palpitations. No fever. On exam, alert and oriented x3. Pulse 84, blood pressure 148/91, respirations 16, temperature 97.7, pulse ox 95% on room air. HEENT: Conjunctivae normal. NECK: No jugular venous distention. CARDIOVASCULAR: S1 and S2, muffled. RESPIRATORY: Breath sounds diminished at the bases. Bilateral scattered rhonchi and crackles. ABDOMEN: Soft, nontender. LEGS: No edema, no swelling. NERVOUS SYSTEM: No focal deficits. LABS: WBC 15.8. Glucose 153. ASSESSMENT: 1. Chronic obstructive pulmonary disease, bronchial asthma, acute exacerbation, with acute purulent tracheobronchitis and failure of outpatient treatment. 2. Eosinophilia, present on admission. 3. Increased random blood pressure, possibly secondary to steroids. 4. History of fibromyalgia. 5. History of degenerative joint disease. 6. History of pneumonia. 7. History of hepatitis C. 8. History of methicillin-resistant Staphylococcus aureus. 9. History of attention deficit disorder, attention deficit hyperactivity disorder. 10. Anxiety, depression, not otherwise specified. 11. FULL CODE. RECOMMENDATIONS AND DISCUSSION: Recommend to continue current medications. Continue with monitoring and symptomatic treatment. Continue with tapering steroids. Continue with bronchodilators and the rest of the medications. Further recommendations to follow.
[2017-03-08 06:55] LABS: Glucose,Whole Blood 125 mg/dL (75-99)
[2017-03-08 06:56] LABS: Basophils % (A) 0 %; CH 27.6; CHCM 32.1; Eosinophils % (A) 0 %; HCT 39.2 % (34.0-46.0); HDW 2.61; HGB 13.1 gm/dL (11.4-16.0); Luc # (Auto) 0.13; Luc % (Auto) 1; Lymphocytes # (A) 0.9 k/uL (1.0-4.8); Lymphocytes % (A) 7 %; MCHC 33.5 g/dL (31.0-37.0); MCV 86.6 fL (80.0-100.0); Mean Platelet Volume 6.6; Monocytes # (A) 0.4 k/uL (0-1.0); Monocytes % (A) 3 %; Neutrophils # (A) 10.9 k/uL (1.3-7.7); Neutrophils % (A) 88 %; RBC 4.53 m/uL (3.80-5.40); RDW 13.8 % (11.5-15.5); WBC 12.3 k/uL (3.8-10.6); WBC (Perox) 13.46
[2017-03-08 07:14] LABS: Anion Gap 13 mmol/L; Blood Urea Nitrogen 17 mg/dL (7-17); Calcium 9.7 mg/dL (8.4-10.2); Carbon Dioxide 21 mmol/L (22-30); Chloride 107 mmol/L (98-107); Glucose 137 mg/dL (74-99); Non-African American GFR(MDRD) >60 (>60 ml/min/1.73 sqM); Potassium 4.5 mmol/L (3.5-5.1); Sodium 141 mmol/L (137-145)
[2017-03-08] MEDS: BUDESONIDE 1 MG/2 ML NEBU INHALATION SCH ×2 (07:28→19:40)
[2017-03-08] MEDS: FORMOTEROL FUMARATE 20 MCG/2 ML NEBU INHALATION SCH ×2 (07:28→19:40)
[2017-03-08] MEDS: HEPARIN SODIUM,PORCINE 5,000 UNIT/ML 1 ML VIAL SQ SCH ×2 (08:39→20:23)
[2017-03-08] MEDS: GABAPENTIN 400 MG CAP PO SCH ×3 (08:39→22:03)
[2017-03-08] MEDS: PIPERACILLIN-TAZOBACTAM 3.375 GM in DEXTROSE/WATER 1 50ML.BAG IVPB SCH ×3 (08:39→23:43)
[2017-03-08] MEDS: FLUoxetine HCL 20 MG CAP PO SCH (08:40)
[2017-03-08] MEDS: INSULIN LISPRO (humaLOG) 300 UNIT/3 ML VIAL SQ SCH ×4 (08:40→20:23)
[2017-03-08] MEDS: methylPREDNISolone SOD SUCCI 40 MG/ML 1 ML VIAL IV SCH ×2 (08:40→16:45)
[2017-03-08] MEDS: PANTOPRAZOLE 40 MG TABLET PO SCH (08:40)
[2017-03-08] MEDS: ALPRAZolam 0.25 MG TAB PO PRN ×2 (08:53→19:40)
[2017-03-08 12:03] LABS: Glucose,Whole Blood 109 mg/dL (75-99)
[2017-03-08] MEDS ORDERED: RX INFO: IV CONTRAST WAS GIVEN 1 EACH MISC MISCELLANE PRN (15:37)
--- NOTE | 2017-03-08 16:52 | CT ---
EXAMINATION TYPE: CT chest w con DATE OF EXAM: 03/08/2017 COMPARISON: Radiographs 03/05/2017 HISTORY: 56-year-old female dyspnea, multiple episodes of pneumonia. TECHNIQUE: Contiguous axial scanning of the chest after the administration of 100 mL of Omnipaque 300 . Coronal/sagittal reconstructions performed. CT DLP: 299.60mGycm. Automatic exposure control utilized for a dose reduction. FINDINGS: The heart is normal size without pericardial effusion. Ascending aorta is mildly ectatic at 3.7 cm with conventional arch vessel branching anatomy. No thoracic lymphadenopathy by CT size criteria. Strandy areas of atelectasis or scarring in the basilar right middle lobe and inferior lingula. There is mild diffuse bronchial wall thickening and patchy subpleural and peribronchovascular groundglass particularly in the upper to mid lungs. No sandra consolidation or pleural effusion. Visualized upper abdomen shows no gross abnormality. Bones: No osseous destructive process. IMPRESSION: 1. Mild diffuse bronchial wall thickening could represent bronchitis or chronic asthma. 2. However, there is patchy upper to midlung predominant groundglass. Some differential consideration s include interstitial pneumonitis (such as [facility]), hypersensitivity pneumonitis, and opportunistic inf ections/atypical pneumonias. 3. Some strandy atelectasis or scarring at the anterior lung bases.
[2017-03-08 17:22] LABS: Glucose,Whole Blood 151 mg/dL (75-99)
--- NOTE | 2017-03-08 17:52 | P.PN ---
Subjective 56-year-old female sees Dr. Nell Loo as her primary doctor. Apparently has a history of chronic bronchial asthma which is quite severe. She was brought in by EMS for difficulty breathing chest congestion tightness wheezing cough and phlegm production. She just finished 5 days of steroids and antibiotics without much benefit. Still very short of breath but chest congestion coughing wheezing and tightness. Just feels sort of miserable. The patient received inpatient treatment for the past few days with some limited improvement. Ordered time being, the patient is on IV Zosyn as a broad- spectrum antibiotic coverage. The patient is receiving IV Solu-Medrol 40 mg IV every 8 hours. The patient is on a combination of Pulmicort Respules and Perforomist neb last treatment twice a day and the patient is receiving DuoNeb nebulized treatments around the clock. Despite all this, she continues to have bronchospasm wheezing and chest tightness and congestion. She is not a smoker for the time being. Objective - Vital Signs Vital signs: Vital Signs Temp 98 F 03/08/17 15:00 Pulse 104 H 03/08/17 15:55 Resp 16 03/08/17 15:00 BP 133/64 03/08/17 15:00 Pulse Ox 94 L 03/08/17 15:00 Intake & Output 03/07/17 03/08/17 03/08/17 18:59 06:59 18:59 Intake Total 650 290 Balance 650 290 Weight 72.575 kg 72.575 kg Intake: Intake, IV Titration 50 50 Amount Piperacillin-Tazobactam 3 50 50 .375 gm In Dextrose/Water 1 50ml.bag @ 12.5 mls/hr IVPB Q8HR [facility] Rx#: [id number] Oral 600 240 Other: # Voids 4 1 - Exam The patient appeared well nourished and normally developed. Vital signs as documented. Head exam is unremarkable. No scleral icterus or corneal arcus noted. Neck is without jugular venous distension, thyromegaly, or carotid bruits. Carotid upstrokes are brisk bilaterally. Lungs are diminished and there is prolongation of expiratory phase of breathing and diffuse expiratory wheezes throughout the lung farah bilaterally. Cardiac exam reveals the PMI to be normally sized and situated. Rhythm is regular. First and second heart sounds normal. No murmurs, rubs or gallops. Abdominal exam reveals normal bowel sounds , no masses, no organomegaly and no aortic enlargement. Extremities are nonedematous and both femoral and pedal pulses are normal. - Labs CBC & Chem 7: 03/08/17 06:19 03/08/17 06:19 Labs: Abnormal Lab Results - Last 24 Hours (Table) 03/07/17 03/08/17 03/08/17 Range/Units 20:09 06:19 06:19 WBC 12.3 H (3.8-10.6) k/uL Neutrophils # 10.9 H (1.3-7.7) k/uL Lymphocytes # 0.9 L (1.0-4.8) k/uL Carbon Dioxide 21 L (22-30) mmol/L Glucose 137 H (74-99) mg/dL POC Glucose (mg/dL) 198 H (75-99) mg/dL 03/08/17 03/08/17 03/08/17 Range/Units 06:50 12:00 17:20 WBC (3.8-10.6) k/uL Neutrophils # (1.3-7.7) k/uL Lymphocytes # (1.0-4.8) k/uL Carbon Dioxide (22-30) mmol/L Glucose (74-99) mg/dL POC Glucose (mg/dL) 125 H 109 H 151 H (75-99) mg/dL Assessment and Plan Plan: Assessment 1 severe persistent bronchial asthma with ongoing difficulty breathing shortness of breath and bronchospasm wheezing, rule out underlying pneumonia. Rule out underlying tracheal bronchitis 2 shortness of breath secondary to above 3 chronic generalized anxiety disorder 4 fibromyalgia Plan This patient has failed outpatient treatment. She is also feeling adequate inpatient treatment. Continue same treatment. We'll continue the bronchodilators and systemic steroids and antibiotics. Note that she's been having difficulty in breathing since December 2016. Back then a bronchoscopy was done and the bronchioloalveolar lavage was negative for any significant microbial growth. Proceed with a CAT scan of the chest. We'll continue to follow.
--- NOTE | 2017-03-08 18:56 | PN ---
DATE OF SERVICE: 03/08/2017 This 56-year-old woman was admitted with COPD acute exacerbation, is improving slightly. No chest pain. No palpitations. No fever. Dr. Rodriguez is following the patient closely. On exam, alert and oriented times three. Pulse is 86. Blood pressure 180/82. Respiratory rate 16. Temperature 97.7. Pulse ox 94% on room air. HEENT: Conjunctivae normal. NECK: No jugular venous distention. CARDIOVASCULAR: S1, S2 muffled. RESPIRATORY: Breath sounds diminished at the bases. A few scattered rhonchi and crackles. Expiratory wheezing also present. ABDOMEN: Soft, nontender. LEGS: No edema. No swelling. Labs are WBC 12.5. Accu-Cheks noted. ASSESSMENT: 1. Chronic obstructive pulmonary disease acute exacerbation with acute bronchial asthma acute exacerbation, acute purulent tracheobronchitis with failure of outpatient treatment. 3. Increased random blood sugar, possibly secondary to steroids. 4. History of fibromyalgia. 5. History of degenerative joint disease. 6. History of pneumonia. 7. History of hepatitis C. 8. History of Methicillin-resistant Staph aureus. 10. Anxiety, depression, not otherwise specified. 11. FULL CODE. RECOMMENDATIONS AND DISCUSSION: This 56-year-old woman who presented with multiple complex medical issues, we will monitor the patient closely. Continue the current medications. Continue symptomatic recommend. At this time, I recommend bronchodilators, steroids and continue follow up with Dr. Rodriguez. Empiric antibiotics. Guarded prognosis because of multiple complex medical issues. Further recommendations to follow. MTDD
[2017-03-08 20:10] LABS: Glucose,Whole Blood 184 mg/dL (75-99)
[2017-03-08] MEDS: guaiFENesin-DM 600/30MG 1 EACH TAB.ER.12H PO SCH (20:23)
[2017-03-08] MEDS: DOXEPIN 25 MG CAP PO SCH (20:23)
[2017-03-09] MEDS: methylPREDNISolone SOD SUCCI 40 MG/ML 1 ML VIAL IV SCH ×2 (00:04→07:32)
[2017-03-09] MEDS: IPRATROPIUM-ALBUTEROL 3 ML NEB INHALATION SCH ×6 (03:17→23:12)
[2017-03-09] MEDS: BUDESONIDE 1 MG/2 ML NEBU INHALATION SCH ×2 (07:03→20:10)
[2017-03-09] MEDS: FORMOTEROL FUMARATE 20 MCG/2 ML NEBU INHALATION SCH ×2 (07:03→20:10)
[2017-03-09 07:06] LABS: Glucose,Whole Blood 173 mg/dL (75-99)
[2017-03-09 07:25] LABS: Basophils % (A) 0 %; CH 27.8; CHCM 31.8; Eosinophils % (A) 0 %; HCT 44.5 % (34.0-46.0); HDW 2.54; Luc # (Auto) 0.16; Luc % (Auto) 2; Lymphocytes % (A) 10 %; MCH 27.6 pg (25.0-35.0); MCHC 31.4 g/dL (31.0-37.0); MCV 87.7 fL (80.0-100.0); Mean Platelet Volume 6.7; Monocytes # (A) 0.5 k/uL (0-1.0); Monocytes % (A) 4 %; Neutrophils # (A) 8.7 k/uL (1.3-7.7); Neutrophils % (A) 84 %; RBC 5.07 m/uL (3.80-5.40); RDW 13.8 % (11.5-15.5); WBC 10.4 k/uL (3.8-10.6); WBC (Perox) 10.75
[2017-03-09] MEDS: GABAPENTIN 400 MG CAP PO SCH ×3 (07:31→20:53)
[2017-03-09] MEDS: HEPARIN SODIUM,PORCINE 5,000 UNIT/ML 1 ML VIAL SQ SCH ×2 (07:31→20:53)
[2017-03-09] MEDS: PIPERACILLIN-TAZOBACTAM 3.375 GM in DEXTROSE/WATER 1 50ML.BAG IVPB SCH ×2 (07:31→16:09)
[2017-03-09] MEDS: FLUoxetine HCL 20 MG CAP PO SCH (07:31)
[2017-03-09] MEDS: guaiFENesin-DM 600/30MG 1 EACH TAB.ER.12H PO SCH ×2 (07:31→20:53)
[2017-03-09] MEDS: PANTOPRAZOLE 40 MG TABLET PO SCH (07:32)
[2017-03-09] MEDS: INSULIN LISPRO (humaLOG) 300 UNIT/3 ML VIAL SQ SCH ×4 (07:32→20:53)
[2017-03-09] MEDS: HYDROcodone/APAP 10-325MG 1 EACH TAB PO PRN ×3 (07:34→19:46)
[2017-03-09 07:44] LABS: Anion Gap 14 mmol/L; Blood Urea Nitrogen 19 mg/dL (7-17); Calcium 9.5 mg/dL (8.4-10.2); Carbon Dioxide 23 mmol/L (22-30); Chloride 103 mmol/L (98-107); Glucose 163 mg/dL (74-99); Non-African American GFR(MDRD) >60 (>60 ml/min/1.73 sqM); Potassium 4.6 mmol/L (3.5-5.1); Sodium 140 mmol/L (137-145)
[2017-03-09 11:46] LABS: Glucose,Whole Blood 132 mg/dL (75-99)
--- NOTE | 2017-03-09 11:49 | P.PN ---
Subjective 56-year-old female sees Dr. Nell Loo as her primary doctor. Apparently has a history of chronic bronchial asthma which is quite severe. She was brought in by EMS for difficulty breathing chest congestion tightness wheezing cough and phlegm production. She just finished 5 days of steroids and antibiotics without much benefit. Still very short of breath but chest congestion coughing wheezing and tightness. Just feels sort of miserable. The patient received inpatient treatment for the past few days with some limited improvement. Ordered time being, the patient is on IV Zosyn as a broad- spectrum antibiotic coverage. The patient is receiving IV Solu-Medrol 40 mg IV every 8 hours. The patient is on a combination of Pulmicort Respules and Perforomist neb last treatment twice a day and the patient is receiving DuoNeb nebulized treatments around the clock. Despite all this, she continues to have bronchospasm wheezing and chest tightness and congestion. She is not a smoker for the time being. On 03/09/2017 I'm seeing this patient in follow-up. The patient is still essentially the same. Still bronchospastic and wheezy and short of breath. I performed a CAT scan of the chest on this patient yesterday and it showed some groundglass infiltrates in the upper lobes bilaterally. There is also mild diffuse bronchial wall thickening consistent underlying chronic bronchitis/ chronic bronchial asthma. The patient a bronchoscopy back in December 2016 and the cultures were all negative. However, her overall response has been suboptimal at this point. Objective - Vital Signs Vital signs: Vital Signs Temp 97.5 F L 03/09/17 07:00 Pulse 116 H 03/09/17 07:33 Resp 18 03/09/17 07:00 BP 131/62 03/09/17 07:00 Pulse Ox 98 03/09/17 07:00 Intake & Output 03/08/17 03/09/17 03/09/17 18:59 06:59 18:59 Intake Total 980 Balance 980 Intake: Intake, IV Titration 100 Amount Piperacillin-Tazobactam 3 100 .375 gm In Dextrose/Water 1 50ml.bag @ 12.5 mls/hr IVPB Q8HR [facility] Rx#: [id number] Oral 880 Other: # Voids 4 1 - Exam The patient appeared well nourished and normally developed. Vital signs as documented. Head exam is unremarkable. No scleral icterus or corneal arcus noted. Neck is without jugular venous distension, thyromegaly, or carotid bruits. Carotid upstrokes are brisk bilaterally. Lungs are diminished and there is prolongation of expiratory phase of breathing and diffuse expiratory wheezes throughout the lung farah bilaterally. Cardiac exam reveals the PMI to be normally sized and situated. Rhythm is regular. First and second heart sounds normal. No murmurs, rubs or gallops. Abdominal exam reveals normal bowel sounds , no masses, no organomegaly and no aortic enlargement. Extremities are nonedematous and both femoral and pedal pulses are normal. - Labs CBC & Chem 7: 03/09/17 06:49 03/09/17 06:49 Labs: Abnormal Lab Results - Last 24 Hours (Table) 03/08/17 03/08/17 03/08/17 Range/Units 12:00 17:20 20:08 Neutrophils # (1.3-7.7) k/uL BUN (7-17) mg/dL Glucose (74-99) mg/dL POC Glucose (mg/dL) 109 H 151 H 184 H (75-99) mg/dL 03/09/17 03/09/17 03/09/17 Range/Units 06:49 06:49 07:01 Neutrophils # 8.7 H (1.3-7.7) k/uL BUN 19 H (7-17) mg/dL Glucose 163 H (74-99) mg/dL POC Glucose (mg/dL) 173 H (75-99) mg/dL 03/09/17 Range/Units 11:42 Neutrophils # (1.3-7.7) k/uL BUN (7-17) mg/dL Glucose (74-99) mg/dL POC Glucose (mg/dL) 132 H (75-99) mg/dL Assessment and Plan Plan: Assessment 1 severe persistent bronchial asthma with ongoing difficulty breathing shortness of breath and bronchospasm wheezing, rule out underlying pneumonia. Rule out underlying tracheal bronchitis 2 shortness of breath secondary to above 3 bilateral upper lobe groundglass pulmonary infiltrates. Rule out underlying atypical pneumonias. Rule out hypersensitivity pneumonitis. 4 fibromyalgia Plan This patient has failed outpatient treatment. She is also feeling adequate inpatient treatment. Continue same treatment. We'll continue the bronchodilators and systemic steroids and antibiotics. I'm going to increase in swelling Medrol back to 60 mg IV push every 6 hours. Continue rest of the bronchodilators. Keep the patient nothing by mouth for possible bronchoscopy in a.m. if no improvement.
[2017-03-09] MEDS: methylPREDNISolone SOD SUCCI 125 MG/2 ML VIAL IV SCH ×3 (12:00→18:17)
[2017-03-09] MEDS: ALPRAZolam 0.25 MG TAB PO PRN ×2 (12:35→20:58)
[2017-03-09 17:44] LABS: Glucose,Whole Blood 205 mg/dL (75-99)
[2017-03-09 20:14] LABS: Glucose,Whole Blood 189 mg/dL (75-99)
[2017-03-09] MEDS: DOXEPIN 25 MG CAP PO SCH (20:53)
[2017-03-10] MEDS: PIPERACILLIN-TAZOBACTAM 3.375 GM in DEXTROSE/WATER 1 50ML.BAG IVPB SCH ×3 (00:22→15:53)
[2017-03-10] MEDS: methylPREDNISolone SOD SUCCI 125 MG/2 ML VIAL IV SCH ×4 (00:22→18:15)
[2017-03-10] MEDS: IPRATROPIUM-ALBUTEROL 3 ML NEB INHALATION SCH ×6 (03:35→23:31)
[2017-03-10] MEDS: HYDROcodone/APAP 10-325MG 1 EACH TAB PO PRN ×4 (03:50→21:40)
[2017-03-10 07:14] LABS: Basophils % (A) 0 %; CH 27.9; CHCM 32.5; Eosinophils % (A) 0 %; HCT 42.8 % (34.0-46.0); HDW 2.59; HGB 13.6 gm/dL (11.4-16.0); Luc # (Auto) 0.16; Luc % (Auto) 1; Lymphocytes # (A) 1.1 k/uL (1.0-4.8); Lymphocytes % (A) 7 %; MCH 27.4 pg (25.0-35.0); MCHC 31.8 g/dL (31.0-37.0); MCV 86.3 fL (80.0-100.0); Mean Platelet Volume 6.8; Monocytes # (A) 0.6 k/uL (0-1.0); Monocytes % (A) 4 %; Neutrophils # (A) 14.1 k/uL (1.3-7.7); Neutrophils % (A) 89 %; RBC 4.96 m/uL (3.80-5.40); RDW 13.8 % (11.5-15.5); WBC 15.9 k/uL (3.8-10.6)
[2017-03-10 07:18] LABS: Glucose,Whole Blood 132 mg/dL (75-99)
[2017-03-10] MEDS: INSULIN LISPRO (humaLOG) 300 UNIT/3 ML VIAL SQ SCH ×4 (07:21→21:21)
[2017-03-10] MEDS: FORMOTEROL FUMARATE 20 MCG/2 ML NEBU INHALATION SCH ×2 (07:30→19:55)
[2017-03-10] MEDS: BUDESONIDE 1 MG/2 ML NEBU INHALATION SCH ×2 (07:30→19:55)
[2017-03-10 07:31] LABS: Anion Gap 12 mmol/L; Blood Urea Nitrogen 22 mg/dL (7-17); Calcium 9.3 mg/dL (8.4-10.2); Carbon Dioxide 24 mmol/L (22-30); Chloride 103 mmol/L (98-107); Glucose 150 mg/dL (74-99); Non-African American GFR(MDRD) >60 (>60 ml/min/1.73 sqM); Potassium 4.2 mmol/L (3.5-5.1); Sodium 139 mmol/L (137-145)
[2017-03-10] MEDS: HEPARIN SODIUM,PORCINE 5,000 UNIT/ML 1 ML VIAL SQ SCH ×2 (10:52→21:22)
[2017-03-10] MEDS: GABAPENTIN 400 MG CAP PO SCH ×3 (10:53→21:23)
[2017-03-10] MEDS: FLUoxetine HCL 20 MG CAP PO SCH (10:54)
[2017-03-10] MEDS: PANTOPRAZOLE 40 MG TABLET PO SCH (10:54)
[2017-03-10] MEDS: ALPRAZolam 0.25 MG TAB PO PRN ×2 (10:57→15:53)
[2017-03-10] MEDS: guaiFENesin-DM 600/30MG 1 EACH TAB.ER.12H PO SCH ×2 (10:57→21:20)
[2017-03-10 12:09] LABS: Glucose,Whole Blood 209 mg/dL (75-99)
--- NOTE | 2017-03-10 14:44 | P.PN ---
Subjective 56-year-old female sees Dr. Nell Loo as her primary doctor. Apparently has a history of chronic bronchial asthma which is quite severe. She was brought in by EMS for difficulty breathing chest congestion tightness wheezing cough and phlegm production. She just finished 5 days of steroids and antibiotics without much benefit. Still very short of breath but chest congestion coughing wheezing and tightness. Just feels sort of miserable. The patient received inpatient treatment for the past few days with some limited improvement. Ordered time being, the patient is on IV Zosyn as a broad- spectrum antibiotic coverage. The patient is receiving IV Solu-Medrol 40 mg IV every 8 hours. The patient is on a combination of Pulmicort Respules and Perforomist neb last treatment twice a day and the patient is receiving DuoNeb nebulized treatments around the clock. Despite all this, she continues to have bronchospasm wheezing and chest tightness and congestion. She is not a smoker for the time being. On 03/09/2017 I'm seeing this patient in follow-up. The patient is still essentially the same. Still bronchospastic and wheezy and short of breath. I performed a CAT scan of the chest on this patient yesterday and it showed some groundglass infiltrates in the upper lobes bilaterally. There is also mild diffuse bronchial wall thickening consistent underlying chronic bronchitis/ chronic bronchial asthma. The patient a bronchoscopy back in December 2016 and the cultures were all negative. However, her overall response has been suboptimal at this point. On 03/10/2017 I'm seeing this patient in follow-up. The patient is feeling better. She is less short of breath. There was plans to proceed with bronchoscopy today however based on my today's evaluation I feel the patient is doing better. Based on that the procedure was canceled. I will however keep her on bronchodilators and systemic service from and 24 hours and I would suggest high dose IV Solu Medrol for now. She is also on DuoNeb. She remains on empiric antibiotic coverage with IV Zosyn. No other complaints otherwise for now. CAT scan of the chest was reviewed. Objective - Vital Signs Vital signs: Vital Signs Temp 97.4 F L 03/10/17 07:00 Pulse 88 03/10/17 11:55 Resp 18 03/10/17 08:00 BP 137/80 03/10/17 07:00 Pulse Ox 92 L 03/10/17 07:00 Intake & Output 03/09/17 03/10/17 03/10/17 18:59 06:59 18:59 Intake Total 210 Balance 210 Weight 72.575 kg Intake: IV 210 Piperacillin-Tazobactam 3 50 .375 gm In Dextrose/Water 1 50ml.bag @ 12.5 mls/hr IVPB Q8HR AYO Rx#: [id number] ns@20 160 Other: # Voids 4 2 - Exam The patient appeared well nourished and normally developed. Vital signs as documented. Head exam is unremarkable. No scleral icterus or corneal arcus noted. Neck is without jugular venous distension, thyromegaly, or carotid bruits. Carotid upstrokes are brisk bilaterally. Lungs are diminished and there is prolongation of expiratory phase of breathing and diffuse expiratory wheezes throughout the lung farah bilaterally. Cardiac exam reveals the PMI to be normally sized and situated. Rhythm is regular. First and second heart sounds normal. No murmurs, rubs or gallops. Abdominal exam reveals normal bowel sounds , no masses, no organomegaly and no aortic enlargement. Extremities are nonedematous and both femoral and pedal pulses are normal. - Labs CBC & Chem 7: 03/10/17 06:27 03/10/17 06:27 Labs: Abnormal Lab Results - Last 24 Hours (Table) 03/09/17 03/09/17 03/10/17 Range/Units 17:42 20:12 06:27 WBC 15.9 H (3.8-10.6) k/uL Neutrophils # 14.1 H (1.3-7.7) k/uL BUN (7-17) mg/dL Glucose (74-99) mg/dL POC Glucose (mg/dL) 205 H 189 H (75-99) mg/dL 03/10/17 03/10/17 03/10/17 Range/Units 06:27 07:13 12:06 WBC (3.8-10.6) k/uL Neutrophils # (1.3-7.7) k/uL BUN 22 H (7-17) mg/dL Glucose 150 H (74-99) mg/dL POC Glucose (mg/dL) 132 H 209 H (75-99) mg/dL Assessment and Plan Plan: Assessment 1 severe persistent bronchial asthma with ongoing difficulty breathing shortness of breath and bronchospasm wheezing, rule out underlying pneumonia. Rule out underlying tracheal bronchitis 2 shortness of breath secondary to above 3 bilateral upper lobe groundglass pulmonary infiltrates. Rule out underlying atypical pneumonias. Rule out hypersensitivity pneumonitis. 4 fibromyalgia Plan The patient is gradually improving. No plans for bronchoscopy today knowing that she has improved compared to yesterday. Atelectatic discussion with her. The pulmonary infiltrates in the upper lobe was probably inflammatory than infectious. The patient the recent bronchoscopy and the bronchioloalveolar lavage was also negative. Based on that, I would continue the current treatment as long as the patient is improving. She will be given systemic transference 24 hours and switch to prednisone burst taper as of tomorrow. She is on Mucinex DM for cough. She is on [place] for pain control. She is doing well for now.
[2017-03-10 17:08] LABS: Glucose,Whole Blood 170 mg/dL (75-99)
[2017-03-10] MEDS: AMOXIC-POT CLAV 875-125MG 1 EACH TAB PO SCH (19:44)
[2017-03-10 20:10] LABS: Glucose,Whole Blood 144 mg/dL (75-99)
[2017-03-10] MEDS: DOXEPIN 25 MG CAP PO SCH (21:22)
[2017-03-10 22:49] VITALS: TEMP 97.1
[2017-03-11] MEDS: IPRATROPIUM-ALBUTEROL 3 ML NEB INHALATION SCH ×3 (04:22→11:16)
[2017-03-11] MEDS: FORMOTEROL FUMARATE 20 MCG/2 ML NEBU INHALATION SCH (07:28)
[2017-03-11] MEDS: BUDESONIDE 1 MG/2 ML NEBU INHALATION SCH (07:28)
[2017-03-11 07:37] LABS: Glucose,Whole Blood 106 mg/dL (75-99)
[2017-03-11] MEDS: INSULIN LISPRO (humaLOG) 300 UNIT/3 ML VIAL SQ SCH ×2 (07:49→12:38)
[2017-03-11] MEDS: AMOXIC-POT CLAV 875-125MG 1 EACH TAB PO SCH (07:53)
[2017-03-11] MEDS: guaiFENesin-DM 600/30MG 1 EACH TAB.ER.12H PO SCH (07:53)
[2017-03-11] MEDS: GABAPENTIN 400 MG CAP PO SCH (07:54)
[2017-03-11] MEDS: FLUoxetine HCL 20 MG CAP PO SCH (07:54)
[2017-03-11] MEDS: PANTOPRAZOLE 40 MG TABLET PO SCH (07:54)
[2017-03-11 07:57] VITALS: BP 164/80; RESP 18
[2017-03-11] MEDS: HYDROcodone/APAP 10-325MG 1 EACH TAB PO PRN ×2 (08:01→14:00)
[2017-03-11] MEDS: HEPARIN SODIUM,PORCINE 5,000 UNIT/ML 1 ML VIAL SQ SCH (08:47)
[2017-03-11] MEDS ORDERED: predniSONE 20 MG TAB PO SCH (09:00)
[2017-03-11] MEDS: ALPRAZolam 0.25 MG TAB PO PRN (10:44)
[2017-03-11 11:25] LABS: Glucose,Whole Blood 175 mg/dL (75-99)
[2017-03-11 11:35] VITALS: PULSE 76
--- NOTE | 2017-03-11 12:40 | PN ---
DATE OF SERVICE: 03/09/2017 This 56-year-old woman was admitted with COPD acute exacerbation , is being closely monitored. Patient still has extensive bronchospasm. Dr. Rodriguez is following the patient closely. A CAT scan of the chest has been done yesterday. It showed mild diffuse bronchial wall thickening and patchy midlung pneumonia. Some areas of atelectasis of the anterior lung bases. No fever or cough is noted on exam. Alert and oriented x3. The pulse is 85, blood pressure 140/85, respirations 18 , temperature is 97.8, pulse ox 94% on room air. HEENT: Conjunctivae normal, oral mucosa moist. NECK: No jugular venous distension. No lymph node enlargement. CARDIOVASCULAR SYSTEM: S1, S2, muffled. RESPIRATORY: Breath sounds diminished at the bases, bilateral scattered rhonchi , respiratory wheezing and crackles. ABDOMEN: Soft, nontender. LEGS: No edema, no swelling. Labs are reviewed and within normal limits. Glucose 163, CO2 of 19. ASSESSMENT: 1. Chronic obstructive pulmonary disease and bronchial asthma acute exacerbation with acute purulent tracheobronchitis and possible bronchopneumonia with failure of outpatient treatment. 2. Increased random blood sugar possibly secondary to steroids, eosinophilia present on admission. 3. History of fibromyalgia. 4. History of degenerative joint disease. 5. History of pneumonia. 6. History of hepatitis C. 7. Anxiety, depression not otherwise specified. 8. History of ADHD. 8. FULL CODE. RECOMMENDATION AND DISCUSSION: Recommend to continue current medication. Continue with the bronchodilators, continue with IV steroids. Dr. Rodriguez is following the patient closely. Continue with symptomatic treatment, possible bronchoscopy. Further recommendations to follow. See orders for further details. MTDD
--- NOTE | 2017-03-11 16:02 | P.PN ---
Subjective 56-year-old female sees Dr. Nell Loo as her primary doctor. Apparently has a history of chronic bronchial asthma which is quite severe. She was brought in by EMS for difficulty breathing chest congestion tightness wheezing cough and phlegm production. She just finished 5 days of steroids and antibiotics without much benefit. Still very short of breath but chest congestion coughing wheezing and tightness. Just feels sort of miserable. The patient received inpatient treatment for the past few days with some limited improvement. Ordered time being, the patient is on IV Zosyn as a broad- spectrum antibiotic coverage. The patient is receiving IV Solu-Medrol 40 mg IV every 8 hours. The patient is on a combination of Pulmicort Respules and Perforomist neb last treatment twice a day and the patient is receiving DuoNeb nebulized treatments around the clock. Despite all this, she continues to have bronchospasm wheezing and chest tightness and congestion. She is not a smoker for the time being. On 03/09/2017 I'm seeing this patient in follow-up. The patient is still essentially the same. Still bronchospastic and wheezy and short of breath. I performed a CAT scan of the chest on this patient yesterday and it showed some groundglass infiltrates in the upper lobes bilaterally. There is also mild diffuse bronchial wall thickening consistent underlying chronic bronchitis/ chronic bronchial asthma. The patient a bronchoscopy back in December 2016 and the cultures were all negative. However, her overall response has been suboptimal at this point. On 03/10/2017 I'm seeing this patient in follow-up. The patient is feeling better. She is less short of breath. There was plans to proceed with bronchoscopy today however based on my today's evaluation I feel the patient is doing better. Based on that the procedure was canceled. I will however keep her on bronchodilators and systemic service from and 24 hours and I would suggest high dose IV Solu Medrol for now. She is also on DuoNeb. She remains on empiric antibiotic coverage with IV Zosyn. No other complaints otherwise for now. CAT scan of the chest was reviewed. On , the patient is feeling much better. The patient is much less short of breath. The patient is improved considerably. I think it's reasonable to discharge this patient home on a prednisone burst taper however she would need a longer course of a taper starting with 60 mg to begin by 10 mg every 4 days. She will also continue Augmentin on outpatient basis and go back on Advair as maintenance and albuterol about treatments around the clock. No thrush. No chest pain. No shortness of breath. Less congested. Objective - Vital Signs Vital signs: Vital Signs Temp 97.1 F L 03/10/17 22:48 Pulse 76 03/11/17 11:34 Resp 18 03/11/17 08:00 BP 164/80 03/11/17 07:00 Pulse Ox 96 03/11/17 07:00 Intake & Output 03/10/17 03/11/17 03/11/17 18:59 06:59 18:59 Intake Total 580 1020 Balance 580 1020 Weight 72.575 kg 72.575 kg Intake: IV 100 Piperacillin-Tazobactam 3 100 .375 gm In Dextrose/Water 1 50ml.bag @ 12.5 mls/hr IVPB Q8HR AYO Rx#: [id number] Oral 480 1020 Other: # Voids 4 2 - Exam The patient appeared well nourished and normally developed. Vital signs as documented. Head exam is unremarkable. No scleral icterus or corneal arcus noted. Neck is without jugular venous distension, thyromegaly, or carotid bruits. Carotid upstrokes are brisk bilaterally. Lungs are diminished and there is prolongation of expiratory phase of breathing and diffuse expiratory wheezes throughout the lung farah bilaterally. Cardiac exam reveals the PMI to be normally sized and situated. Rhythm is regular. First and second heart sounds normal. No murmurs, rubs or gallops. Abdominal exam reveals normal bowel sounds , no masses, no organomegaly and no aortic enlargement. Extremities are nonedematous and both femoral and pedal pulses are normal. - Labs CBC & Chem 7: 03/10/17 06:27 03/10/17 06:27 Labs: Abnormal Lab Results - Last 24 Hours (Table) 03/10/17 03/10/17 03/11/17 Range/Units 17:07 20:06 07:31 POC Glucose (mg/dL) 170 H 144 H 106 H (75-99) mg/dL 03/11/17 Range/Units 11:23 POC Glucose (mg/dL) 175 H (75-99) mg/dL Assessment and Plan Plan: Assessment 1 severe persistent bronchial asthma with ongoing difficulty breathing shortness of breath and bronchospasm wheezing, rule out underlying pneumonia. Rule out underlying tracheal bronchitis 2 shortness of breath secondary to above 3 bilateral upper lobe groundglass pulmonary infiltrates. Rule out underlying atypical pneumonias. Rule out hypersensitivity pneumonitis. 4 fibromyalgia Plan The patient is feeling better. She is recovering yet she is not completely recovered at this point. She will need further treatment. I would suggest discharging this patient home on oral Augmentin, prednisone burst taper starting with 60 mg to be tapered by 10 g every 4 days. Advil as maintenance. I'll be done about treatments around the clock. Follow-up in the office regarding her bronchial asthma treatment.
--- NOTE | 2017-03-13 09:13 | PN ---
DATE OF SERVICE: 03/10/2017 This 56-year-old woman was admitted with COPD acute exacerbation as well as bronchopneumonia being closely monitored. Dr. Rodriguez is deferring bronchoscopy for now because of the improvement of output 24 hours. No chest pain or palpitations. No fever. On exam, alert and oriented x3. Pulse is 86, blood pressure 132/66, respirations 18, temperature 98.3, pulse ox 95% on room air. EYES: Conjunctivae normal. NECK: No jugular venous distention. CARDIOVASCULAR: S1 and S2 muffled. RESPIRATORY: Breath sounds diminished at the bases. Bilateral scattered rhonchi and crackles. Expiratory wheezing also present. ABDOMEN: Soft, nontender. No mass palpable. LEGS: No edema. NERVOUS SYSTEM: No focal deficits. LABS: WBC 15.9. Accu-Cheks noted. ASSESSMENT: 1. Chronic obstructive pulmonary disease and acute bronchial asthma acute exacerbation with acute bilateral bronchopneumonia, possibly gram negative with failure of outpatient treatment. 2. Increased random blood sugar, possibly secondary to steroids. 3. History of fibromyalgia. 4. History of degenerative joint disease. 5. History of pneumonia. 6. History of hepatitis C. 7. History of MRSA. 8. History of anxiety, depression, not otherwise specified. 9. FULL CODE. RECOMMENDATIONS AND DISCUSSION: Recommend to continue current medications. Continue with monitoring and symptomatic treatment. Otherwise, at this time we will monitor the patient closely. Continue the antibiotics, bronchodilators with steroids. Closely follow with Dr. Rodriguez. Further recommendations to follow. ISABELD
== END 2017-03-11 15:35 | disposition home or self-care (01) | DRG 190 ==
LOC: EC 03:13 → 5MS5E 05:15
PROVIDERS: ADMIT Internal Medicine; ATTEND Internal Medicine
DX: J44.0 Chronic obstructive pulmonary disease with (acute) lower respiratory infection (principal); J18.0 Bronchopneumonia, unspecified organism; D72.1 Eosinophilia; J45.51 Severe persistent asthma with (acute) exacerbation; M41.9 Scoliosis, unspecified; R73.09 Other abnormal glucose; T38.0X5A Adverse effect of glucocorticoids and synthetic analogues, initial encounter; J44.1 Chronic obstructive pulmonary disease with (acute) exacerbation; R00.0 Tachycardia, unspecified; G89.29 Other chronic pain; M47.812 Spondylosis without myelopathy or radiculopathy, cervical region; M50.30 Other cervical disc degeneration, unspecified cervical region; M79.7 Fibromyalgia; M19.90 Unspecified osteoarthritis, unspecified site; R01.1 Cardiac murmur, unspecified; F41.1 Generalized anxiety disorder; F32.9 Major depressive disorder, single episode, unspecified; F90.9 Attention-deficit hyperactivity disorder, unspecified type; Z79.899 Other long term (current) drug therapy; Z79.51 Long term (current) use of inhaled steroids; Z82.5 Family history of asthma and other chronic lower respiratory diseases; Z80.1 Family history of malignant neoplasm of trachea, bronchus and lung; Z86.14 Personal history of Methicillin resistant Staphylococcus aureus infection; Z87.01 Personal history of pneumonia (recurrent); Z79.891 Long term (current) use of opiate analgesic; Z91.013 Allergy to seafood; Z98.51 Tubal ligation status; Z87.42 Personal history of other diseases of the female genital tract; Z86.19 Personal history of other infectious and parasitic diseases
CPT/HCPCS: 36415; 71020; 71260; 80048; 80053; 82550; 82553; 83036; 83735; 83880; 84484; 85025; 85379; 85610; 85730; 93005; 94640; 94760; 96361; 96365; 96375; 99291

== ENCOUNTER 2017-06-07 13:20 | Inpatient (IN) | payer MEDICARE, OTHER ==
[2017-06-07] MEDS ORDERED: methylPREDNISolone SOD SUCCI 125 MG/2 ML VIAL IV STA (13:36)
[2017-06-07] MEDS: IPRATROPIUM-ALBUTEROL 3 ML NEB INHALATION STA (13:58)
--- NOTE | 2017-06-07 14:09 | ED ---
SOB HPI - General Chief Complaint: Shortness of Breath Stated Complaint: Diff Breathing Time Seen by Provider: 06/07/17 13:34 Source: patient, EMS, RN notes reviewed Mode of arrival: EMS Limitations: physical limitation - History of Present Illness Initial Comments: This 56-year-old female presents emergency Department chief complaint of shortness of breath. Patient states she has asthma and COPD. Patient states she's been having difficulty with the last few days. She has been doing updrafts at home states she had no relief. Patient or chills. Patient states she's had a cold over the last few days and difficulty with her ALLERGIES. Patient denies any headache, dizziness, chest pain. Patient states that she has noticed her wheezing at home. Patient denies nausea or vomiting. - Related Data Home Medications Medication Instructions Recorded Confirmed Gabapentin 800 mg PO TID 05/10/14 06/07/17 Hydrocodone/Acetaminophen [Glen 1 tab PO QID PRN 08/07/16 06/07/17 10-325] Dextroamphetamine/Amphetamine 20 mg PO BID 11/20/16 06/07/17 [Adderall] Doxepin HCl [SINEquan] 50 mg PO HS 11/20/16 06/07/17 Multivit-Min/Iron/Folic/Lutein 1 tab PO DAILY 12/23/16 06/07/17 [Centrum Silver Women Tablet] FLUoxetine HCL [Sarafem] 60 mg PO DAILY 02/26/17 06/07/17 Allergies Allergy/AdvReac Type Severity Reaction Status Date / Time shellfish derived Allergy Rash/Hives Verified 06/07/17 13:47 Review of Systems ROS Statement: Those systems with pertinent positive or pertinent negative responses have been documented in the HPI. ROS Other: All systems not noted in ROS Statement are negative. Past Medical History Past Medical History: Asthma, COPD, Fibromyalgia, Osteoarthritis (OA), Pneumonia Additional Past Medical History / Comment(s): Hepatitis C with tx and now cured , chronic cervical and back pain, DDD, scoliosis. History of Any Multi-Drug Resistant Organisms: MRSA Date of last positivie culture/infection: 10/07/08 MDRO Source:: Left axilla Past Surgical History: Orthopedic Surgery, Tonsillectomy, Tubal Ligation Additional Past Surgical History / Comment(s): 12/29/16 bronchoscopy with BAL, TOVA SHOULDER,TOVA WRISTS,LT COLLAR BONE, L ovarian cystectomy Past Anesthesia/Blood Transfusion Reactions: No Reported Reaction Past Psychological History: ADD/ADHD, Anxiety, Depression Smoking Status: Never smoker - Past Family History Father Family Medical History: Cancer Additional Family Medical History / Comment(s): Father of LUNG cancer at the age of 69yrs. He was a smoker. Mother Family Medical History: COPD Additional Family Medical History / Comment(s): Mother of COPD at the age of 71 yrs. General Exam Limitations: no limitations General appearance: alert, in no apparent distress Neck exam: Present: normal inspection. Absent: tenderness, meningismus, lymphadenopathy Respiratory exam: Present: respiratory distress (Mild), wheezes. Absent: normal lung sounds bilaterally, rales, rhonchi, stridor Cardiovascular Exam: Present: regular rate, normal rhythm, normal heart sounds. Absent: systolic murmur, diastolic murmur, rubs, gallop, clicks Neurological exam: Present: alert, oriented X3, CN II-XII intact Skin exam: Present: warm, dry, intact, normal color. Absent: rash Course Vital Signs 06/07/17 06/07/17 06/07/17 13:27 13:32 14:00 Temperature 98.9 F Pulse Rate 103 H 106 H Respiratory 20 20 Rate Blood Pressure 149/78 O2 Sat by Pulse Oximetry 06/07/17 06/07/17 06/07/17 14:05 14:13 15:21 Temperature 98.5 F Pulse Rate 105 H 87 Respiratory 18 Rate Blood Pressure 134/69 O2 Sat by Pulse 96 94 L Oximetry 06/07/17 06/07/17 15:36 15:48 Temperature Pulse Rate 92 96 Respiratory Rate Blood Pressure O2 Sat by Pulse Oximetry Medical Decision Making - Lab Data Result diagrams: 06/07/17 14:00 06/07/17 14:00 Lab Results 06/07/17 06/07/17 06/07/17 Range/Units 14:00 14:00 14:00 WBC 6.1 (3.8-10.6) k/uL RBC 5.28 (3.80-5.40) m/uL Hgb 15.0 (11.4-16.0) gm/dL Hct 45.3 (34.0-46.0) % MCV 85.8 (80.0-100.0) fL MCH 28.4 (25.0-35.0) pg MCHC 33.0 (31.0-37.0) g/dL RDW 13.4 (11.5-15.5) % Plt Count 295 (150-450) k/uL Neutrophils % 40 % Lymphocytes % 35 % Monocytes % 6 % Eosinophils % 16 % Basophils % 1 % Neutrophils # 2.4 (1.3-7.7) k/uL Lymphocytes # 2.2 (1.0-4.8) k/uL Monocytes # 0.4 (0-1.0) k/uL Eosinophils # 1.0 H (0-0.7) k/uL Basophils # 0.1 (0-0.2) k/uL PT (9.0-12.0) sec INR (<1.2) APTT (22.0-30.0) sec Sodium 143 (137-145) mmol/L Potassium 4.1 (3.5-5.1) mmol/L Chloride 104 (98-107) mmol/L Carbon Dioxide 25 (22-30) mmol/L Anion Gap 14 mmol/L BUN 10 (7-17) mg/dL Creatinine 0.94 (0.52-1.04) mg/dL Est GFR (MDRD) Af Amer >60 (>60 ml/min/1.73 sqM) Est GFR (MDRD) Non-Af >60 (>60 ml/min/1.73 sqM) Glucose 88 (74-99) mg/dL Calcium 10.2 (8.4-10.2) mg/dL Magnesium 1.9 (1.6-2.3) mg/dL Total Bilirubin 0.3 (0.2-1.3) mg/dL AST 24 (14-36) U/L ALT 32 (9-52) U/L Alkaline Phosphatase 101 (38-126) U/L Total Creatine Kinase 84 (30-135) U/L CK-MB (CK-2) 0.6 (0.0-2.4) ng/mL CK-MB (CK-2) Rel Index 0.7 Troponin I <0.012 (0.000-0.034) ng/mL NT-Pro-B Natriuret Pep pg/mL Total Protein 7.7 (6.3-8.2) g/dL Albumin 4.7 (3.5-5.0) g/dL 06/07/17 06/07/17 Range/Units 14:00 14:00 WBC (3.8-10.6) k/uL RBC (3.80-5.40) m/uL Hgb (11.4-16.0) gm/dL Hct (34.0-46.0) % MCV (80.0-100.0) fL MCH (25.0-35.0) pg MCHC (31.0-37.0) g/dL RDW (11.5-15.5) % Plt Count (150-450) k/uL Neutrophils % % Lymphocytes % % Monocytes % % Eosinophils % % Basophils % % Neutrophils # (1.3-7.7) k/uL Lymphocytes # (1.0-4.8) k/uL Monocytes # (0-1.0) k/uL Eosinophils # (0-0.7) k/uL Basophils # (0-0.2) k/uL PT 10.9 (9.0-12.0) sec INR 1.1 (<1.2) APTT 23.7 (22.0-30.0) sec Sodium (137-145) mmol/L Potassium (3.5-5.1) mmol/L Chloride (98-107) mmol/L Carbon Dioxide (22-30) mmol/L Anion Gap mmol/L BUN (7-17) mg/dL Creatinine (0.52-1.04) mg/dL Est GFR (MDRD) Af Amer (>60 ml/min/1.73 sqM) Est GFR (MDRD) Non-Af (>60 ml/min/1.73 sqM) Glucose (74-99) mg/dL Calcium (8.4-10.2) mg/dL Magnesium (1.6-2.3) mg/dL Total Bilirubin (0.2-1.3) mg/dL AST (14-36) U/L ALT (9-52) U/L Alkaline Phosphatase (38-126) U/L Total Creatine Kinase (30-135) U/L CK-MB (CK-2) (0.0-2.4) ng/mL CK-MB (CK-2) Rel Index Troponin I (0.000-0.034) ng/mL NT-Pro-B Natriuret Pep 28 pg/mL Total Protein (6.3-8.2) g/dL Albumin (3.5-5.0) g/dL 06/07/17 15:56 EKG performed at 14:09 normal sinus rhythm with a rate of 91 CA 130 QRS duration 86 QT/TC 384/472 Disposition Clinical Impression: COPD exacerbation Disposition: ADMITTED IP TO THIS HOSP Condition: Fair Referrals: Eric Loo DO [Primary Care Provider] - 1-2 days
[2017-06-07 14:19] LABS: Basophils # (A) 0.1 k/uL (0-0.2); Basophils % (A) 1 %; CH 27.8; CHCM 32.4; Eosinophils % (A) 16 %; HCT 45.3 % (34.0-46.0); HDW 2.68; Luc # (Auto) 0.18; Luc % (Auto) 3; Lymphocytes # (A) 2.2 k/uL (1.0-4.8); Lymphocytes % (A) 35 %; MCH 28.4 pg (25.0-35.0); MCV 85.8 fL (80.0-100.0); Mean Platelet Volume 6.8; Monocytes # (A) 0.4 k/uL (0-1.0); Monocytes % (A) 6 %; Neutrophils # (A) 2.4 k/uL (1.3-7.7); Neutrophils % (A) 40 %; RBC 5.28 m/uL (3.80-5.40); RDW 13.4 % (11.5-15.5); WBC 6.1 k/uL (3.8-10.6); WBC (Perox) 6.35
[2017-06-07 14:27] LABS: INR 1.1 (<1.2); Partial Thromboplastin Time 23.7 sec (22.0-30.0); Prothrombin Time 10.9 sec (9.0-12.0)
[2017-06-07 14:36] LABS: ALT 32 U/L (9-52); AST 24 U/L (14-36); Alkaline Phosphatase 101 U/L (38-126); Anion Gap 14 mmol/L; Blood Urea Nitrogen 10 mg/dL (7-17); Calcium 10.2 mg/dL (8.4-10.2); Carbon Dioxide 25 mmol/L (22-30); Chloride 104 mmol/L (98-107); Glucose 88 mg/dL (74-99); Magnesium 1.9 mg/dL (1.6-2.3); Non-African American GFR(MDRD) >60 (>60 ml/min/1.73 sqM); Potassium 4.1 mmol/L (3.5-5.1); Sodium 143 mmol/L (137-145); Total Bilirubin 0.3 mg/dL (0.2-1.3); Total Protein 7.7 g/dL (6.3-8.2)
[2017-06-07 14:37] LABS: Creatine Kinase 84 U/L (30-135)
--- NOTE | 2017-06-07 14:47 | XR ---
EXAMINATION TYPE: XR chest 2V DATE OF EXAM: 06/07/2017 COMPARISON: 03/05/17 HISTORY: Shortness of breath TECHNIQUE: Frontal and lateral views of the chest are obtained. FINDINGS: Scattered senescent parenchymal changes noted. Hyperinflation compatible with COPD. No evidence for infiltrate. No evidence for atelectasis. Heart size is stable. Mediastinal structures are stable and grossly unremarkable. No evidence for hilar prominence. Degenerative changes dorsal spine. IMPRESSION: 1. No evidence for acute pulmonary disease.
[2017-06-07 14:48] LABS: Creatine Kinase MB 0.6 ng/mL (0.0-2.4); Troponin I <0.012 ng/mL (0.000-0.034)
[2017-06-07] MEDS ORDERED: diphenhydrAMINE 50 MG/ML 1 ML VIAL IVP STA (15:05)
[2017-06-07] MEDS ORDERED: ALBUTEROL NEBULIZED 2.5 MG/3 ML INHALATION STA (15:05)
[2017-06-07] MEDS: GABAPENTIN 400 MG CAP PO SCH (19:53)
[2017-06-07] MEDS: DOXEPIN 25 MG CAP PO SCH (19:53)
[2017-06-07] MEDS: methylPREDNISolone SOD SUCCI 125 MG/2 ML VIAL IV SCH ×2 (19:53→23:07)
[2017-06-07] MEDS: HYDROcodone/APAP 10-325MG 1 EACH TAB PO PRN (19:59)
[2017-06-08] MEDS: IPRATROPIUM-ALBUTEROL 3 ML NEB INHALATION PRN ×3 (00:41→10:47)
[2017-06-08] MEDS: HYDROcodone/APAP 10-325MG 1 EACH TAB PO PRN ×4 (02:07→21:44)
[2017-06-08] MEDS: methylPREDNISolone SOD SUCCI 125 MG/2 ML VIAL IV SCH ×2 (05:22→12:31)
[2017-06-08] MEDS: FLUoxetine HCL 20 MG CAP PO SCH (08:19)
[2017-06-08] MEDS: ENOXAPARIN 40 MG/0.4 ML SYRINGE SQ SCH (08:19)
[2017-06-08] MEDS: GABAPENTIN 400 MG CAP PO SCH ×3 (08:19→21:43)
[2017-06-08] MEDS ORDERED: SYMBICORT 160-4.5 MCG INHALER INHALATION SCH (10:49)
[2017-06-08] MEDS: LEVOFLOXACIN 500 MG TAB PO SCH (12:05)
[2017-06-08] MEDS: MULTIVITAMINS, THERA 1 EACH TAB PO SCH (12:07)
--- NOTE | 2017-06-08 12:11 | P.CNPUL ---
History of Present Illness Consult date: 06/08/17 Requesting physician: Italo Mallory Reason for consult: dyspnea, COPD Chief complaint: Shortness of breath History of present illness: This is a pleasant 56-year-old white female with a history of COPD, asthma, pneumonia, osteoarthritis, ADD anxiety and depression, presented to the emergency department with 2 day history of increasing shortness of breath. Describes increased wheezing, nonproductive cough, but no fevers, no chills. Denies chest tightness, headache or dizziness. Denies being around sick contacts. Patient is a lifetime nonsmoker, but had secondhand smoke exposure in childhood - both parents were heavy smokers. Patient has been following with our service for the management of COPD and asthma. Patient's sister was also diagnosed with asthma. Patient denies any particular triggers, no current exposure to secondhand smoke. She has had a cat in the house for the past 9 years. Since her previous hospitalization in February 2017, she denies any significant exacerbations of her asthma, or significant limitation in her activity level. Denies rhinorrhea, but does have mild itching of her eyes. She was using her DuoNeb nebulizer treatments with no response. Denies being on any maintenance inhalers for her COPD or asthma at home. She was recently hospitalized in February 2017 with acute exacerbation of her bronchial pneumonia, tracheobronchitis, possible atypical pneumonia. CT of the chest from 2016 revealed atelectasis or scarring at the basilar right middle lobe and inferior lingula. Mild diffuse bronchial wall thickening and peribronchial vascular groundglass in the upper to mid lungs. She was treated medically and discharged home on oral antibiotics, prednisone burst taper, DuoNeb and Advair inhalers. She had a bronchoscopy back in December 2016 and the cultures were all negative. No leukocytosis noted. Mild eosinophilia. Chest x-ray from 2016 is reviewed and showed no evidence for acute pulmonary disease. Review of Systems Constitutional: Denies chills, Denies fever Eyes: denies blurred vision, denies pain Ears: deny: decreased hearing, ear discharge, earache, tinnitus Ears, nose, mouth and throat: Denies headache, Denies sore throat Cardiovascular: Denies chest pain Respiratory: Reports cough, Reports dyspnea Gastrointestinal: Denies abdominal pain, Denies diarrhea, Denies nausea, Denies vomiting Genitourinary: Denies dysuria, Denies hematuria Musculoskeletal: Denies myalgias Musculoskeletal: absent: ankle swelling Integumentary: Denies pruritus, Denies rash Neurological: Denies numbness, Denies weakness Psychiatric: Denies anxiety, Denies depression Endocrine: Denies fatigue, Denies weight change Allergic/Immunologic: Reports seasonal allergies Past Medical History Past Medical History: Asthma, COPD, Fibromyalgia, Osteoarthritis (OA), Pneumonia Additional Past Medical History / Comment(s): Hepatitis C with tx and now cured , chronic cervical and back pain, DDD, scoliosis. History of Any Multi-Drug Resistant Organisms: MRSA Date of last positivie culture/infection: 02/19/15 MDRO Source:: Right Foot Past Surgical History: Orthopedic Surgery, Tonsillectomy, Tubal Ligation Additional Past Surgical History / Comment(s): 12/29/16 bronchoscopy with BAL, TOVA SHOULDER,TOVA WRISTS,LT COLLAR BONE, L ovarian cystectomy Past Anesthesia/Blood Transfusion Reactions: No Reported Reaction Smoking Status: Never smoker - Past Family History Father Family Medical History: Cancer Additional Family Medical History / Comment(s): Father of LUNG cancer at the age of 69yrs. He was a smoker. Mother Family Medical History: COPD Additional Family Medical History / Comment(s): Mother of COPD at the age of 71 yrs. Medications and Allergies Home Medications Medication Instructions Recorded Confirmed Type Gabapentin 800 mg PO TID 05/10/14 06/07/17 History Hydrocodone/Acetaminophen [[place] 1 tab PO QID PRN 08/07/16 06/07/17 History 10-325] Dextroamphetamine/Amphetamine 20 mg PO BID 11/20/16 06/07/17 History [Adderall] Doxepin HCl [SINEquan] 50 mg PO HS 11/20/16 06/07/17 History Multivit-Min/Iron/Folic/Lutein 1 tab PO DAILY 12/23/16 06/07/17 History [Centrum Silver Women Tablet] FLUoxetine HCL [Sarafem] 60 mg PO DAILY 02/26/17 06/07/17 History Allergies Allergy/AdvReac Type Severity Reaction Status Date / Time shellfish derived Allergy Rash/Hives Verified 06/07/17 13:47 Physical Exam Vitals: Vital Signs Temp Pulse Pulse Resp BP BP Pulse Ox 06/08/17 11:02 80 06/08/17 10:48 80 06/08/17 08:00 82 18 06/08/17 07:00 97.7 F 82 18 123/62 96 06/08/17 06:34 96 06/08/17 06:19 92 06/08/17 01:00 96 06/08/17 00:41 92 06/07/17 23:00 97.3 F L 88 16 127/73 93 L 06/07/17 18:37 98.8 F 89 19 141/63 96 06/07/17 17:38 99.2 F 84 18 161/65 97 06/07/17 16:00 98.5 F 92 20 139/72 94 L 06/07/17 15:48 96 06/07/17 15:36 92 06/07/17 15:21 98.5 F 87 18 134/69 94 L 06/07/17 14:13 96 06/07/17 14:05 105 H 06/07/17 14:00 106 H 06/07/17 13:32 20 06/07/17 13:27 98.9 F 103 H 20 149/78 Intake and Output 06/07/17 06/08/17 06/08/17 22:59 06:59 14:59 Intake Total 100 800 Balance 100 800 Intake: Oral 100 800 Other: # Voids 1 3 Weight 72.575 kg Patient Weight 06/09/17 06:59 Weight 72.575 kg - Constitutional General appearance: average body habitus, cooperative, no acute distress - EENT Eyes: anicteric sclerae, PERRLA, dentition normal ENT: NA/AT - Neck Neck: no lymphadenopathy Carotids: bilateral: upstroke normal Thyroid: bilateral: normal size - Respiratory Respiratory: bilateral: wheezing, prolonged expiration - Cardiovascular Rhythm: regular Heart sounds: normal: S1, S2 radial pulse Peripheral Pulses: bilateral: Normal dorsalis pedis Peripheral Pulses: bilateral: Normal - Gastrointestinal General gastrointestinal: no organomegaly, soft, no tenderness - Integumentary Integumentary: normal, normal turgor - Neurologic Neurologic: CNII-XII intact - Musculoskeletal Musculoskeletal: gait normal, strength equal bilaterally - Psychiatric Psychiatric: A&O x's 3, appropriate affect, intact judgment & insight Results - Laboratory Findings CBC and BMP: 06/07/17 14:00 06/07/17 14:00 PT/INR, D-dimer PT 10.9 sec (9.0-12.0) 06/07/17 14:00 INR 1.1 (<1.2) 06/07/17 14:00 Abnormal lab findings: Abnormal Labs 06/07/17 14:00 Eosinophils # 1.0 H - Diagnostic Findings Chest x-ray: report reviewed Assessment and Plan Plan: Assessment: #1. Persistent bronchial asthma with acute exacerbation with increased shortness of breath and wheezing. No underlying pneumonia, or tracheal bronchitis. #2. Eosinophilia #3. History of fibromyalgia #4. Degenerative joint disease #5. History of pneumonia #6. History of hepatitis C #7. History of methicillin-resistant staph aureus #8. History of attention deficit disorder/attention deficit hyperactivity disorder #9. History of anxiety and depression Plan: Continue with systemic steroids Solu-Medrol 60 IV every 6 hours, DuoNeb nebulized treatments [id number] and as needed. Will add budesonide/ formoterol 2 puffs twice a day. Chest x-ray from 06/07/2017 reviewed, no evidence of infiltrates or atelectasis noted. No evidence for hilar prominence. We'll continue to follow. I performed a history & physical examination of the patient and discussed their management with my nurse practitioner, Lorrie Maier. I reviewed the nurse practitioner's note and agree with the documented findings and plan of care.
[2017-06-08] MEDS ORDERED: BUDESONIDE 1 MG/2 ML NEBU INHALATION SCH (14:18)
[2017-06-08] MEDS: ALBUTEROL NEBULIZED 2.5 MG/3 ML INHALATION SCH ×3 (15:18→23:21)
--- NOTE | 2017-06-08 15:24 | HP ---
HISTORY AND PHYSICAL DATE OF ADMISSION: 06/07/2017 PRESENT COMPLAINT: Short of breath, wheezing. HISTORY OF PRESENTING COMPLAINT: This is a 56-year-old patient OF Dr. 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 Chronic stable medical conditions include fibromyalgia, ADHD, anxiety, osteoarthritis, chronic neck and back pains, scoliosis. Patient has known underlying asthma. He presented with worsening short of breath, some dry cough, wheezing, uncontrolled, denies any fever. No sputum production. Apparently run down, tired, admitted for the same. REVIEW OF SYSTEMS: CONSTITUTIONAL: Tired. HEENT: None. RESPIRATORY: As above. CARDIOVASCULAR: None. GASTROINTESTINAL: None. GENITOURINARY: None. MUSCULOSKELETAL: Pain in the back, chronic. DERMATOLOGICAL: None. HEMATOLOGIC: None. LYMPHATIC: None. PSYCHIATRY: Anxiety. NEUROLOGICAL: None. PAST HISTORY: Fibromyalgia, ADHD, anxiety, osteoarthritis chronic, neck and back pain, scoliosis, asthma. PAST SURGICAL HISTORY: Tonsillectomy, tubal ligation, bronchoscopy with lavage, bilateral shoulder, bilateral wrist, left collarbone, left ovarian cystectomy. PSYCH HISTORY: ADHD, anxiety, depression. SOCIAL HISTORY: Lives alone. Has a cat. No smoking, no alcohol. FAMILY HISTORY: Father of lung cancer at the age of 69, was a smoker. HOME MEDICATIONS: 1. Sinequan 50 mg q.h.s. 2. Multivitamin 1 tablet p.o. daily. 3. [place] 10 one tablet q.i.d. p.r.n. 4. Gabapentin 800 mg p.o. t.i.d. 5. Sarafem 60 mg p.o. daily. 6. Adderall 20 mg p.o. b.i.d. ALLERGIES: SHELLFISH. PHYSICAL EXAMINATION: Vital signs on presentation: Temperature 98.9, pulse 103, respirations 20, blood pressure 149/78, pulse ox 94% on 2 L. GENERAL APPEARANCE: Average build, sitting up, tired. EYES: Pupils equal, conjunctivae normal. HEENT: Oral cavity normal. NECK: JVD not raised. Mass not palpable. RESPIRATORY: Effort increased. LUNGS: Diminished breath sounds. Prolonged expiration. Wheezing, accessory muscles are working. CARDIOVASCULAR: First and second sounds are normal. No edema. ABDOMEN: Soft, nontender. Liver and spleen not palpable. LYMPHATICS: No lymph node palpable in neck or axillae. PSYCHIATRY: Alert and oriented x3. Mood and affect slightly anxious-appearing. NEUROLOGICAL: Pupils equal. Cranial nerves grossly intact. Power and sensation grossly intact. INVESTIGATIONS: White count 6.1, hemoglobin 15, potassium 4.1, BUN and creatinine are normal. ProBNP 28. EKG poor R-wave progression. Chest x-ray, nil acute. ASSESSMENT: 1. Acute exacerbation of severe persistent asthma. 2. Chronic fibromyalgia. 3. ADHD. 4. Anxiety, not otherwise specified. 5. Scoliosis. PLAN: Patient started on albuterol nebulized bronchodilators, IV steroids. Home medications are resumed. Care was discussed with the patient. Dr. Rizzo was consulted. MMODL / IJN: [id number] /
[2017-06-08] MEDS: BUDESONIDE 1 MG/2 ML NEBU INHALATION SCH ×2 (15:34→19:26)
[2017-06-08] MEDS ORDERED: IPRATROPIUM-ALBUTEROL 3 ML NEB INHALATION SCH (16:00)
[2017-06-08] MEDS: methylPREDNISolone SOD SUCCI 40 MG/ML 1 ML VIAL IV SCH ×2 (16:13→23:13)
[2017-06-08] MEDS ORDERED: NON-FORMULARY DRUG (Dextroamphetamine/Amphetamine [Adderall] 20 MG) PO SCH (21:00)
[2017-06-08] MEDS: DOXEPIN 25 MG CAP PO SCH (21:44)
[2017-06-09] MEDS: ALBUTEROL NEBULIZED 2.5 MG/3 ML INHALATION SCH ×6 (03:38→23:11)
[2017-06-09] MEDS: HYDROcodone/APAP 10-325MG 1 EACH TAB PO PRN ×4 (03:49→22:31)
[2017-06-09] MEDS: BUDESONIDE 1 MG/2 ML NEBU INHALATION SCH ×2 (07:29→19:23)
[2017-06-09] MEDS: FLUoxetine HCL 20 MG CAP PO SCH (07:41)
[2017-06-09] MEDS: methylPREDNISolone SOD SUCCI 40 MG/ML 1 ML VIAL IV SCH (07:41)
[2017-06-09] MEDS: ENOXAPARIN 40 MG/0.4 ML SYRINGE SQ SCH (07:41)
[2017-06-09] MEDS: GABAPENTIN 400 MG CAP PO SCH ×3 (07:41→20:49)
[2017-06-09] MEDS: MULTIVITAMINS, THERA 1 EACH TAB PO SCH (11:26)
[2017-06-09] MEDS: LEVOFLOXACIN 500 MG TAB PO SCH (11:26)
[2017-06-09] MEDS: methylPREDNISolone SOD SUCCI 125 MG/2 ML VIAL IV SCH ×2 (12:46→18:51)
--- NOTE | 2017-06-09 15:18 | P.PN ---
Subjective Principal diagnosis: Shortness of breath This is a pleasant 56-year-old white female with a history of COPD, asthma, pneumonia, osteoarthritis, ADD anxiety and depression, presented to the emergency department with 2 day history of increasing shortness of breath. Describes increased wheezing, nonproductive cough, but no fevers, no chills. Denies chest tightness, headache or dizziness. Denies being around sick contacts. Patient is a lifetime nonsmoker, but had secondhand smoke exposure in childhood - both parents were heavy smokers. Patient has been following with our service for the management of COPD and asthma. Patient's sister was also diagnosed with asthma. Patient denies any particular triggers, no current exposure to secondhand smoke. She has had a cat in the house for the past 9 years. Since her previous hospitalization in February 2017, she denies any significant exacerbations of her asthma, or significant limitation in her activity level. Denies rhinorrhea, but does have mild itching of her eyes. She was using her DuoNeb nebulizer treatments with no response. Denies being on any maintenance inhalers for her COPD or asthma at home. She was recently hospitalized in February 2017 with acute exacerbation of her bronchial pneumonia, tracheobronchitis, possible atypical pneumonia. CT of the chest from 2016 revealed atelectasis or scarring at the basilar right middle lobe and inferior lingula. Mild diffuse bronchial wall thickening and peribronchial vascular groundglass in the upper to mid lungs. She was treated medically and discharged home on oral antibiotics, prednisone burst taper, DuoNeb and Advair inhalers. She had a bronchoscopy back in December 2016 and the cultures were all negative. No leukocytosis noted. Mild eosinophilia. Chest x-ray from 2016 is reviewed and showed no evidence for acute pulmonary disease. On 06/09/2017 the patient is seen in follow-up. Continues with significant wheezing, not much in the way of sputum production, but no fevers overnight. Yesterday we started patient on the Symbicort inhalers but the IV Solu-Medrol had been decreased to 40 every 12. Patient sit up on the edge of the bed, mildly short of breath, lung sounds diffuse wheezing throughout the lung farah , bronchospastic cough. She is on room air with O2 saturations at 93. We will increase her IV Solu-Medrol back up to 60 mg every 6 hours. Objective - Vital Signs Vital signs: Vital Signs Temp 97.9 F 06/09/17 07:00 Pulse 80 06/09/17 11:34 Resp 18 06/09/17 07:00 BP 103/61 06/09/17 07:00 Pulse Ox 93 L 06/09/17 07:00 Intake & Output 06/08/17 06/09/17 06/09/17 18:59 06:59 18:59 Intake Total 1840 960 Balance 1840 960 Weight 72.575 kg Intake: Oral 1840 960 Other: Voiding Method Toilet Toilet # Voids 1 1 - Exam Constitutional General appearance: average body habitus, cooperative, no acute distress - EENT Eyes: anicteric sclerae, PERRLA, dentition normal ENT: NA/AT - Neck Neck: no lymphadenopathy Carotids: bilateral: upstroke normal Thyroid: bilateral: normal size - Respiratory Respiratory: bilateral: wheezing, prolonged expiration - Cardiovascular Rhythm: regular Heart sounds: normal: S1, S2 radial pulse Peripheral Pulses: bilateral: Normal dorsalis pedis Peripheral Pulses: bilateral: Normal - Gastrointestinal General gastrointestinal: no organomegaly, soft, no tenderness - Integumentary Integumentary: normal, normal turgor - Neurologic Neurologic: CNII-XII intact - Musculoskeletal Musculoskeletal: gait normal, strength equal bilaterally - Psychiatric Psychiatric: A&O x's 3, appropriate affect, intact judgment & intact. - Labs CBC & Chem 7: 06/07/17 14:00 06/07/17 14:00 Labs: Microbiology - Last 24 Hours (Table) 06/07/17 14:00 Blood Culture - Preliminary Blood No Growth after 24 hours Assessment and Plan Plan: Assessment: #1. Severe persistent bronchial asthma with acute exacerbation with increased shortness of breath and wheezing. No underlying pneumonia, or tracheal bronchitis. #2. Slightly elevated eosinophils related to asthma exacerbation #3. History of fibromyalgia #4. Degenerative joint disease #5. History of pneumonia #6. History of hepatitis C #7. History of methicillin-resistant staph aureus #8. History of attention deficit disorder/attention deficit hyperactivity disorder #9. History of anxiety and depression Plan: Will increase systemic steroids Solu-Medrol back to 60 IV every 6 hours, DuoNeb nebulized treatments [id number] and as needed. Continue Symbicort 2 puffs twice a day. We'll continue to follow. I performed a history & physical examination of the patient and discussed their management with my nurse practitioner, Lorrie Maier. I reviewed the nurse practitioner's note and agree with the documented findings and plan of care.
--- NOTE | 2017-06-09 16:22 | P.PN ---
Progress Note - Text DATE OF SERVICE: 06/09/2017 PRESENTING COMPLAINT: Shortness of breath HISTORY OF PRESENT ILLNESS: This a 56-year-old female who presented with a 2 day history of increasing shortness of breath. Endorses wheezing, nonproductive cough, no fever no chills. Endorses sick contacts admitted for severe persistent bronchial asthma. INTERVAL HISTORY: 06/09/2017: Patient seen in follow-up, continues to have significant wheezing very little sputum, afebrile. Continues to be mildly short of breath, Solu-Medrol was decreased 40 mg every 12 hours yesterday. Pulmonology will increase that back to 60 mg every 6 hours. Patient is tolerating her diet but does not have much of an appetite, ambulatory to and from the bathroom, last BM prior to admission. REVIEW OF SYSTEMS: Done for constitutional ,cardiovascular, GI, pulmonary with relevant findings as above. CURRENT MEDICATIONS [place], Pulmicort, [place], Lovenox, Prozac, Levaquin, PHYSICAL EXAM VITAL SIGNS: Temperature 98.6, pulse 88, respiratory rate 16, blood pressure 126/71, oxygen saturation 96% on room air. GENERAL APPEARANCE: Lying in bed, anxious appearing. EYES: Pupils equal. Conjunctiva normal. NECK: JVD not raised. Mass not palpable. RESPIRATORY: Respiratory effort increased Lungs diminished bilateral bases, expiratory wheezing, coarse rhonchi throughout to auscultation. CARDIOVASCULAR: First and second sounds normal. No edema. ABDOMEN: Soft. Liver and spleen not palpable. No tenderness. No mass palpable. PSYCHIATRY: Alert and oriented x3. Mood and affect anxious. INVESTIGATIONS: LABS: None new Blood cultures no growth after 48 hours. ASSESSMENT: -Acute exacerbation of persistent asthma, slow to respond -Chronic fibromyalgia. -ADHD, -Anxiety, not otherwise specified. -Scoliosis. PLAN: Continue patient on nebulized bronchodilators, IV steroids, and empiric antibiotic in the form of Levaquin. Mucinex will be added. Plan of care discussed with patient the bedside she is in agreement. We will continue to follow closely. BRIDGE PAINTER statement: Patient was seen and examined by nurse practitioner Lupe Mata and all elements of the case discussed with attending Dr. Mallory
[2017-06-09 19:37] VITALS: RESP 16
--- NOTE | 2017-06-09 20:00 | PN ---
PROGRESS NOTE DATE OF SERVICE: 06/09/2017 ATTENDING NOTE: This patient seen and examined by me. I discussed with nurse practitioner, Ms. Mata. Patient is still wheezing, short of breath. A shade better. Did tolerate some diet, has been in bed. EXAMINATION: Afebrile, pulse ox 93% on room air. LUNGS: Decreased breath sounds. Prolonged expiration, wheezing. CARDIOVASCULAR: 1st and 2nd sounds normal. INVESTIGATIONS: Potassium 4.1. ASSESSMENT: Acute severe persistent asthma acute exacerbation, slow to respond. PLAN: Continue current medication and treatment plan. Dose of IV steroids was increased by Pulmonary. Care was discussed with the patient. Follow. MMODL / IJN: [id number] /
[2017-06-09] MEDS: DOXEPIN 25 MG CAP PO SCH (20:49)
[2017-06-10] MEDS: methylPREDNISolone SOD SUCCI 125 MG/2 ML VIAL IV SCH ×3 (00:17→12:51)
[2017-06-10] MEDS: ALBUTEROL NEBULIZED 2.5 MG/3 ML INHALATION SCH ×5 (03:31→19:53)
[2017-06-10] MEDS: HYDROcodone/APAP 10-325MG 1 EACH TAB PO PRN ×4 (04:07→23:26)
[2017-06-10] MEDS: BUDESONIDE 1 MG/2 ML NEBU INHALATION SCH ×2 (07:18→19:53)
[2017-06-10 08:17] LABS: Basophils % (A) 0 %; CH 27.5; CHCM 31.4; Eosinophils % (A) 0 %; HCT 45.7 % (34.0-46.0); HDW 2.53; HGB 14.2 gm/dL (11.4-16.0); Hypochromasia Slight; Luc # (Auto) 0.11; Luc % (Auto) 1; Lymphocytes # (A) 1.2 k/uL (1.0-4.8); Lymphocytes % (A) 7 %; MCH 27.4 pg (25.0-35.0); MCHC 31.1 g/dL (31.0-37.0); Mean Platelet Volume 6.9; Monocytes # (A) 0.4 k/uL (0-1.0); Monocytes % (A) 2 %; Neutrophils # (A) 14.9 k/uL (1.3-7.7); Neutrophils % (A) 89 %; RDW 13.7 % (11.5-15.5); WBC 16.6 k/uL (3.8-10.6); WBC (Perox) 17.38
[2017-06-10 08:44] LABS: Anion Gap 15 mmol/L; Blood Urea Nitrogen 16 mg/dL (7-17); Calcium 10.1 mg/dL (8.4-10.2); Carbon Dioxide 21 mmol/L (22-30); Chloride 106 mmol/L (98-107); Glucose 140 mg/dL (74-99); Non-African American GFR(MDRD) >60 (>60 ml/min/1.73 sqM); Potassium 4.6 mmol/L (3.5-5.1); Sodium 142 mmol/L (137-145)
[2017-06-10] MEDS: ENOXAPARIN 40 MG/0.4 ML SYRINGE SQ SCH (09:11)
[2017-06-10] MEDS: GABAPENTIN 400 MG CAP PO SCH ×3 (09:11→22:06)
[2017-06-10] MEDS: FLUoxetine HCL 20 MG CAP PO SCH (09:11)
[2017-06-10] MEDS: MULTIVITAMINS, THERA 1 EACH TAB PO SCH (12:51)
[2017-06-10] MEDS: LEVOFLOXACIN 500 MG TAB PO SCH (12:51)
--- NOTE | 2017-06-10 16:06 | P.PN ---
Subjective Principal diagnosis: Shortness of breath This is a pleasant 56-year-old white female with a history of COPD, asthma, pneumonia, osteoarthritis, ADD anxiety and depression, presented to the emergency department with 2 day history of increasing shortness of breath. Describes increased wheezing, nonproductive cough, but no fevers, no chills. Denies chest tightness, headache or dizziness. Denies being around sick contacts. Patient is a lifetime nonsmoker, but had secondhand smoke exposure in childhood - both parents were heavy smokers. Patient has been following with our service for the management of COPD and asthma. Patient's sister was also diagnosed with asthma. Patient denies any particular triggers, no current exposure to secondhand smoke. She has had a cat in the house for the past 9 years. Since her previous hospitalization in February 2017, she denies any significant exacerbations of her asthma, or significant limitation in her activity level. Denies rhinorrhea, but does have mild itching of her eyes. She was using her DuoNeb nebulizer treatments with no response. Denies being on any maintenance inhalers for her COPD or asthma at home. She was recently hospitalized in February 2017 with acute exacerbation of her bronchial pneumonia, tracheobronchitis, possible atypical pneumonia. CT of the chest from 2016 revealed atelectasis or scarring at the basilar right middle lobe and inferior lingula. Mild diffuse bronchial wall thickening and peribronchial vascular groundglass in the upper to mid lungs. She was treated medically and discharged home on oral antibiotics, prednisone burst taper, DuoNeb and Advair inhalers. She had a bronchoscopy back in December 2016 and the cultures were all negative. No leukocytosis noted. Mild eosinophilia. Chest x-ray from 2016 is reviewed and showed no evidence for acute pulmonary disease. On 06/09/2017 the patient is seen in follow-up. Continues with significant wheezing, not much in the way of sputum production, but no fevers overnight. Yesterday we started patient on the Symbicort inhalers but the IV Solu-Medrol had been decreased to 40 every 12. Patient sit up on the edge of the bed, mildly short of breath, lung sounds diffuse wheezing throughout the lung farah , bronchospastic cough. She is on room air with O2 saturations at 93. We will increase her IV Solu-Medrol back up to 60 mg every 6 hours. On 06/10/2017 patient has improved in the last 24 hours in terms of wheezing and coughing. Yesterday we increased the IV Solu-Medrol to 6o mg 6 hours, the patient seems to have responded to that. She has been ambulating in the hallway , appears to be less short of breath, lung sounds with diffuse wheezing over posterior lung farah, improved. she is on room air, maintaining good oxygen saturations. No sputum production.he denies chest congestion or chest tightness. Objective - Vital Signs Vital signs: Vital Signs Temp 97.1 F L 06/09/17 23:00 Pulse 88 06/10/17 11:21 Resp 16 06/10/17 00:00 BP 142/71 06/09/17 23:00 Pulse Ox 96 06/09/17 23:00 Intake & Output 06/09/17 06/10/17 06/10/17 18:59 06:59 18:59 Intake Total 960 500 Balance 960 500 Weight 72.575 kg 72.575 kg Intake: Oral 960 500 Other: Voiding Method Toilet Toilet # Voids 1 2 - Exam Constitutional General appearance: average body habitus, cooperative, no acute distress - EENT Eyes: anicteric sclerae, PERRLA, dentition normal ENT: NA/AT - Neck Neck: no lymphadenopathy Carotids: bilateral: upstroke normal Thyroid: bilateral: normal size - Respiratory Respiratory: bilateral: wheezing, prolonged expiration - Cardiovascular Rhythm: regular Heart sounds: normal: S1, S2 radial pulse Peripheral Pulses: bilateral: Normal dorsalis pedis Peripheral Pulses: bilateral: Normal - Gastrointestinal General gastrointestinal: no organomegaly, soft, no tenderness - Integumentary Integumentary: normal, normal turgor - Neurologic Neurologic: CNII-XII intact - Musculoskeletal Musculoskeletal: gait normal, strength equal bilaterally - Psychiatric Psychiatric: A&O x's 3, appropriate affect, intact judgment & intact. - Labs CBC & Chem 7: 06/10/17 07:53 06/10/17 07:53 Labs: Abnormal Lab Results - Last 24 Hours (Table) 06/10/17 06/10/17 Range/Units 07:53 07:53 WBC 16.6 H (3.8-10.6) k/uL Neutrophils # 14.9 H (1.3-7.7) k/uL Carbon Dioxide 21 L (22-30) mmol/L Glucose 140 H (74-99) mg/dL Microbiology - Last 24 Hours (Table) 06/07/17 14:00 Blood Culture - Preliminary Blood No Growth after 48 hours Assessment and Plan Plan: Assessment: #1. Severe persistent bronchial asthma with acute exacerbation with increased shortness of breath and wheezing. No underlying pneumonia, or tracheal bronchitis. #2. Slightly elevated eosinophils related to asthma exacerbation #3. History of fibromyalgia #4. Degenerative joint disease #5. History of pneumonia #6. History of hepatitis C #7. History of methicillin-resistant staph aureus #8. History of attention deficit disorder/attention deficit hyperactivity disorder #9. History of anxiety and depression Plan: Will switch Solumedrol to Prednisone 40 mg daily, Levaquin for antibiotic coverage and DuoNeb nebulized treatments [id number] and as needed. Continue Pulmicort nebulized treatments twice a day. Discharge home tomorrow, on Prednisone taper, Levaquin course for 7 days. We'll continue to follow. I performed a history & physical examination of the patient and discussed their management with my nurse practitioner, Lorrie Maier. I reviewed the nurse practitioner's note and agree with the documented findings and plan of care.
[2017-06-10] MEDS: predniSONE 20 MG TAB PO SCH (16:47)
--- NOTE | 2017-06-10 17:00 | PN ---
PROGRESS NOTE I am covering for Dr. Mallory. INTERVAL HISTORY: This 56-year-old woman who was admitted with asthma acute exacerbation is improving significantly. Yesterday the steroid dose was increased. The patient was not thought not to be increasing significantly. No chest pain. No palpitations. No fever. EXAM: Alert, oriented x3. The pulse is 72, blood pressure is 140/79, respirations 17, temperature 97.1, pulse ox 98% room air. HEENT: Conjunctivae normal. NECK: No jugular venous distention. CARDIOVASCULAR: S1, S2 RESPIRATORY: Breath sounds diminished at the bases. Scattered rhonchi and crackles. ABDOMEN: Soft, nontender. LEGS: No edema. NERVOUS SYSTEM: No focal deficits. LABS: At this time shows WBC 16.6. ASSESSMENT: 1. Acute asthma acute exacerbation with acute purulent tracheobronchitis. 2. Chronic fibromyalgia. 3. Attention deficit hyperactivity disorder. 4. Anxiety, not otherwise specified. 5. Scoliosis. RECOMMENDATIONS AND DISCUSSION: In requisition this 56-year-old woman who presented with multiple complex medical issues, we will monitor the patient closely. Continue the current medications and continue symptomatic treatment. Continue the bronchodilators, taper the steroids. Guarded prognosis because of multiple complex medical issues. further recommendations to follow. MMODL / IJN: [id number] / MTDD
[2017-06-10] MEDS ORDERED: MELATONIN 5 MG TABLET PO SCH (21:00)
[2017-06-10] MEDS: DOXEPIN 25 MG CAP PO SCH (22:06)
[2017-06-11] MEDS: ALBUTEROL NEBULIZED 2.5 MG/3 ML INHALATION SCH ×4 (01:05→10:56)
[2017-06-11] MEDS: HYDROcodone/APAP 10-325MG 1 EACH TAB PO PRN ×2 (04:58→11:46)
[2017-06-11] MEDS: BUDESONIDE 1 MG/2 ML NEBU INHALATION SCH (07:22)
[2017-06-11 07:40] VITALS: BP 136/70; TEMP 98.1
[2017-06-11 07:52] VITALS: PULSE 80
[2017-06-11] MEDS: FLUoxetine HCL 20 MG CAP PO SCH (10:26)
[2017-06-11] MEDS: ENOXAPARIN 40 MG/0.4 ML SYRINGE SQ SCH (10:27)
[2017-06-11] MEDS: GABAPENTIN 400 MG CAP PO SCH (10:27)
[2017-06-11] MEDS: LEVOFLOXACIN 500 MG TAB PO SCH (10:30)
[2017-06-11] MEDS: predniSONE 20 MG TAB PO SCH (10:33)
[2017-06-11] MEDS: MULTIVITAMINS, THERA 1 EACH TAB PO SCH (11:46)
--- NOTE | 2017-06-11 16:30 | P.PN ---
Subjective Principal diagnosis: Shortness of breath This is a pleasant 56-year-old white female with a history of COPD, asthma, pneumonia, osteoarthritis, ADD anxiety and depression, presented to the emergency department with 2 day history of increasing shortness of breath. Describes increased wheezing, nonproductive cough, but no fevers, no chills. Denies chest tightness, headache or dizziness. Denies being around sick contacts. Patient is a lifetime nonsmoker, but had secondhand smoke exposure in childhood - both parents were heavy smokers. Patient has been following with our service for the management of COPD and asthma. Patient's sister was also diagnosed with asthma. Patient denies any particular triggers, no current exposure to secondhand smoke. She has had a cat in the house for the past 9 years. Since her previous hospitalization in February 2017, she denies any significant exacerbations of her asthma, or significant limitation in her activity level. Denies rhinorrhea, but does have mild itching of her eyes. She was using her DuoNeb nebulizer treatments with no response. Denies being on any maintenance inhalers for her COPD or asthma at home. She was recently hospitalized in February 2017 with acute exacerbation of her bronchial pneumonia, tracheobronchitis, possible atypical pneumonia. CT of the chest from 2016 revealed atelectasis or scarring at the basilar right middle lobe and inferior lingula. Mild diffuse bronchial wall thickening and peribronchial vascular groundglass in the upper to mid lungs. She was treated medically and discharged home on oral antibiotics, prednisone burst taper, DuoNeb and Advair inhalers. She had a bronchoscopy back in December 2016 and the cultures were all negative. No leukocytosis noted. Mild eosinophilia. Chest x-ray from 2016 is reviewed and showed no evidence for acute pulmonary disease. On 06/09/2017 the patient is seen in follow-up. Continues with significant wheezing, not much in the way of sputum production, but no fevers overnight. Yesterday we started patient on the Symbicort inhalers but the IV Solu-Medrol had been decreased to 40 every 12. Patient sit up on the edge of the bed, mildly short of breath, lung sounds diffuse wheezing throughout the lung farah , bronchospastic cough. She is on room air with O2 saturations at 93. We will increase her IV Solu-Medrol back up to 60 mg every 6 hours. On 06/10/2017 patient has improved in the last 24 hours in terms of wheezing and coughing. Yesterday we increased the IV Solu-Medrol to 6o mg 6 hours, the patient seems to have responded to that. She has been ambulating in the hallway , appears to be less short of breath, lung sounds with diffuse wheezing over posterior lung farah, improved. she is on room air, maintaining good oxygen saturations. No sputum production.he denies chest congestion or chest tightness. On 06/11/2017 patient continues to improve, less wheezing noted. Continues with bronchospastic cough. She has been ambulating in the hallway. Vital signs have been stable. She denies chest congestion, no sputum production. She can be switched to oral prednisone and she is to continue on 7 day course of oral Levaquin. Follow-up with Dr. Rizzo in the office in one week. Objective - Vital Signs Vital signs: Vital Signs Temp 98.1 F 06/11/17 07:15 Pulse 80 06/11/17 11:21 Resp 16 06/11/17 08:00 BP 136/70 06/11/17 07:15 Pulse Ox 96 06/11/17 07:15 Intake & Output 06/10/17 06/11/17 06/11/17 18:59 06:59 18:59 Intake Total 6282 620 8508 Balance 1097 116 2723 Intake: Oral 4895 505 1501 Other: Voiding Method Toilet Toilet Toilet # Voids 3 2 3 - Exam Constitutional General appearance: average body habitus, cooperative, no acute distress - EENT Eyes: anicteric sclerae, PERRLA, dentition normal ENT: NA/AT - Neck Neck: no lymphadenopathy Carotids: bilateral: upstroke normal Thyroid: bilateral: normal size - Respiratory Respiratory: bilateral: wheezing, prolonged expiration - Cardiovascular Rhythm: regular Heart sounds: normal: S1, S2 radial pulse Peripheral Pulses: bilateral: Normal dorsalis pedis Peripheral Pulses: bilateral: Normal - Gastrointestinal General gastrointestinal: no organomegaly, soft, no tenderness - Integumentary Integumentary: normal, normal turgor - Neurologic Neurologic: CNII-XII intact - Musculoskeletal Musculoskeletal: gait normal, strength equal bilaterally - Psychiatric Psychiatric: A&O x's 3, appropriate affect, intact judgment & intact. - Labs CBC & Chem 7: 06/10/17 07:53 06/10/17 07:53 Labs: Microbiology - Last 24 Hours (Table) 06/07/17 14:00 Blood Culture - Preliminary Blood No Growth after 96 hours Assessment and Plan Plan: Assessment: #1. Severe persistent bronchial asthma with acute exacerbation with increased shortness of breath and wheezing. No underlying pneumonia, or tracheal bronchitis. #2. Slightly elevated eosinophils related to asthma exacerbation #3. History of fibromyalgia #4. Degenerative joint disease #5. History of pneumonia #6. History of hepatitis C #7. History of methicillin-resistant staph aureus #8. History of attention deficit disorder/attention deficit hyperactivity disorder #9. History of anxiety and depression Plan: Will switch Solumedrol to Prednisone 40 mg daily, Levaquin for antibiotic coverage and DuoNeb nebulized treatments [id number] and as needed. Continue Pulmicort nebulized treatments twice a day. Discharge home tomorrow, on Prednisone taper, Levaquin course for 7 days. Follow-up with Dr. Rizzo in the office in one week We'll continue to follow. I performed a history & physical examination of the patient and discussed their management with my nurse practitioner, Lorrie Maier. I reviewed the nurse practitioner's note and agree with the documented findings and plan of care.
--- NOTE | 2017-06-11 18:15 | P.DS ---
Providers Date of admission: 06/10/17 13:28 Attending physician: Italo Mallory Consults: 06/07/17 15:58 Consult Physician Stat Consulting Provider: Red Rodriguez Consult Reason/Comments: COPD exacerbation Do you want consulting provider notified?: Yes Primary care physician: [facility] Course: This 56-year-old woman with a past medical history of multiple medical problems was admitted with acute bronchial asthma exacerbation acute purulent tracheobronchitis. Patient was treated with IV steroids bronchodilators and antibiotics. Patient improved significantly. Patient be discharged in a stable condition with guarded prognosis with further follow-up follow-up in the outpatient setting. On exam vitals are stable. Cardio S1 and S2 normal. Respiratory system few scattered rhonchi. Abdomen soft nontender. Final diagnosis 1. Acute bronchial asthma acute exacerbation with acute purulent acute bronchitis. 2. Chronic fibromyalgia. 3. ADHD. 4. Anxiety not otherwise specified. 5. Scoliosis Patient Condition at Discharge: Fair Plan - Discharge Summary New Discharge Prescriptions: New Levofloxacin [Levaquin] 500 mg PO Q24H #5 tab predniSONE 10 mg PO DIRECTED #30 tab Continue Gabapentin 800 mg PO TID Hydrocodone/Acetaminophen [[place] 10-325] 1 tab PO QID PRN PRN Reason: Pain Doxepin HCl [SINEquan] 50 mg PO HS Dextroamphetamine/Amphetamine [Adderall] 20 mg PO BID Multivit-Min/Iron/Folic/Lutein [Centrum Silver Women Tablet] 1 tab PO DAILY FLUoxetine HCL [Sarafem] 60 mg PO DAILY Discharge Medication List Gabapentin 800 mg PO TID 05/10/14 [History] Hydrocodone/Acetaminophen [[place] 10-325] 1 tab PO QID PRN 08/07/16 [History] Dextroamphetamine/Amphetamine [Adderall] 20 mg PO BID 11/20/16 [History] Doxepin HCl [SINEquan] 50 mg PO HS 11/20/16 [History] Multivit-Min/Iron/Folic/Lutein [Centrum Silver Women Tablet] 1 tab PO DAILY 08/29 [History] FLUoxetine HCL [Sarafem] 60 mg PO DAILY 02/26/17 [History] Levofloxacin [Levaquin] 500 mg PO Q24H #5 tab 06/11/17 [Rx] predniSONE 10 mg PO DIRECTED #30 tab 06/11/17 [Rx] Follow up Appointment(s)/Referral(s): Eric Loo DO [Primary Care Provider] - 06/16/17 9:00 am [facility] Visiting Nurse, [NON-STAFF] - 1 Week Ambulatory/Diagnostic Orders: Complete Blood Count w/diff [LAB.AMB] Time Frame: 3 Days, Location: Determined By Patient Patient Instructions/Handouts: COPD (Chronic Obstructive Pulmonary Disease) (DC ) Discharge Disposition: HOME SELF-CARE
--- NOTE | 2017-06-15 08:29 | CDI ---
In responding to this query, please exercise your independent professional judgment. The [facility] Coding Staff and Clinical Documentation Specialists appreciate your assistance in clarifying documentation, maintaining compliance with coding guidelines, accurately documenting patients condition and capturing severity of illness. The fact that a question is asked does not imply that any particular answer is desired or expected. Communication forms are a method of clarifying documentation and are not made part of the Legal Health Record. Thank you in advance for your clarification. Last Revision, July 2015 [facility] [address] [facility] [place] [address] Documentation Clarification Form Date: 06/15/2017 8:18:00 AM From: Parvin Vicente Admit Date: 06/10/2017 1:28:00 PM Patient Name: Joelle Min Visit Number: [id number] Discharge Date: 06/11/17 Dr. Emigdio Aguilar Conflicting documentation has been found in the medical record. Documentation by Dr Lara Rizzo/Lorrie Maier in consult and progress notes state "persistent bronchial asthma with acute exacerbation with increased shortness of breath and wheezing. No underlying pneumonia or tracheal bronchitis". Your documentation states "acute bronchial asthma acute exacerbation with purulent acute bronchitis". Treatment: IV Solu-Medrol, Duoneb inhalation, IV Levaquin, In your opinion what is the most clinically appropriate diagnosis for this patient? Acute purulent bronchitis No acute purulent bronchtiis OTHER explanation of clinical findings Unable to determine (no explanation for clinical findings) Please document addendum in your discharge summary in order to capture severity of illness and risk of mortality. Include clinical findings that support your diagnosis. FYI: Press F11 to launch patient chart. If you have a question about this query, please contact Vanesa Rivera, Raiser Helper, [facility] Nolasco at [phone] between 8am and 5pm. ALREADY DOCUMENTED MTDD
== END 2017-06-11 14:34 | disposition home health service (06) | DRG 191 ==
LOC: EC 13:20 → INTOOBSV 16:01 → 5MS5E 16:01 → OBSVTOIN 06-10 13:28
PROVIDERS: ADMIT Hospitalist; ATTEND Hospitalist
DX: J44.0 Chronic obstructive pulmonary disease with (acute) lower respiratory infection (principal); J45.51 Severe persistent asthma with (acute) exacerbation; D72.1 Eosinophilia; J44.1 Chronic obstructive pulmonary disease with (acute) exacerbation; J20.9 Acute bronchitis, unspecified; M41.9 Scoliosis, unspecified; F41.9 Anxiety disorder, unspecified; F32.9 Major depressive disorder, single episode, unspecified; F90.9 Attention-deficit hyperactivity disorder, unspecified type; G89.29 Other chronic pain; M79.7 Fibromyalgia; M19.91 Primary osteoarthritis, unspecified site; M50.30 Other cervical disc degeneration, unspecified cervical region; Z79.899 Other long term (current) drug therapy; Z77.22 Contact with and (suspected) exposure to environmental tobacco smoke (acute) (chronic); Z86.19 Personal history of other infectious and parasitic diseases; Z86.14 Personal history of Methicillin resistant Staphylococcus aureus infection; Z87.01 Personal history of pneumonia (recurrent); Z80.1 Family history of malignant neoplasm of trachea, bronchus and lung; Z91.013 Allergy to seafood; Z82.5 Family history of asthma and other chronic lower respiratory diseases
CPT/HCPCS: 36415; 71020; 80048; 80053; 82550; 82553; 83735; 83880; 84484; 85025; 85610; 85730; 87040; 93005; 94640; 96372; 96374; 96375; 96376; 99285

== ENCOUNTER 2017-07-22 09:28 | Emergency (ER) | payer MEDICARE, OTHER ==
[2017-07-22] MEDS ORDERED: MAGNESIUM SULFATE-D5W PMX 1 GM in DEXTROSE/WATER 1 100ML.BAG IVPB STA (09:55)
[2017-07-22] MEDS ORDERED: SODIUM CHLORIDE 0.9% 1,000 ML IV STA (09:55)
[2017-07-22] MEDS ORDERED: methylPREDNISolone SOD SUCCI 125 MG/2 ML VIAL IV STA (09:55)
[2017-07-22] MEDS ORDERED: IPRATROPIUM-ALBUTEROL 3 ML NEB INHALATION STA ×2 (09:55→11:13)
--- NOTE | 2017-07-22 09:58 | ED ---
Chest Pain HPI - General Chief Complaint: Chest Pain Stated Complaint: ANATOLIY Time Seen by Provider: 07/22/17 09:48 Source: patient, RN notes reviewed Mode of arrival: ambulatory Limitations: no limitations - History of Present Illness Initial Comments: This is a 56-year-old female history of COPD who states she's had shortness of breath for about one half days now she states she also feels like is an elephant sitting on her chest because of difficulty breathing. She has a cough or phlegm production fevers chills or sweats she believes this is an exacerbation of her underlying COPD. She denies any other complaints at this time MD Complaint: chest pain, other - Related Data Home Medications Medication Instructions Recorded Confirmed Gabapentin 800 mg PO TID 05/10/14 07/22/17 Hydrocodone/Acetaminophen [[place] 1 tab PO QID PRN 08/07/16 07/22/17 10-325] Dextroamphetamine/Amphetamine 20 mg PO BID 11/20/16 07/22/17 [Adderall] Doxepin HCl [SINEquan] 50 mg PO HS 11/20/16 07/22/17 Multivit-Min/Iron/Folic/Lutein 1 tab PO DAILY 12/23/16 07/22/17 [Centrum Silver Women Tablet] FLUoxetine HCL [Sarafem] 60 mg PO DAILY 02/26/17 07/22/17 Previous Rx's Medication Instructions Recorded predniSONE 20 mg PO BID #10 tab 07/22/17 Allergies Allergy/AdvReac Type Severity Reaction Status Date / Time shellfish derived Allergy Rash/Hives Verified 07/22/17 10:11 Review of Systems ROS Statement: Those systems with pertinent positive or pertinent negative responses have been documented in the HPI. ROS Other: All systems not noted in ROS Statement are negative. EKG Findings - EKG Results: EKG: interpreted by ERMD, sinus rhythm (Sinus rhythm rate of 96. Interval 132 QRS 84 QT since QTC of 380/[address]-t wave changes) Past Medical History Past Medical History: Asthma, COPD, Fibromyalgia, Osteoarthritis (OA), Pneumonia Additional Past Medical History / Comment(s): Hepatitis C with tx and now cured , chronic cervical and back pain, DDD, scoliosis. History of Any Multi-Drug Resistant Organisms: MRSA Date of last positivie culture/infection: 02/19/15 MDRO Source:: Right Foot Past Surgical History: Orthopedic Surgery, Tonsillectomy, Tubal Ligation Additional Past Surgical History / Comment(s): 12/29/16 bronchoscopy with BAL, TOVA SHOULDER,TOVA WRISTS,LT COLLAR BONE, L ovarian cystectomy Past Anesthesia/Blood Transfusion Reactions: No Reported Reaction Past Psychological History: ADD/ADHD, Anxiety, Depression Smoking Status: Never smoker Past Alcohol Use History: None Reported Past Drug Use History: None Reported - Past Family History Father Family Medical History: Cancer Additional Family Medical History / Comment(s): Father of LUNG cancer at the age of 69yrs. He was a smoker. Mother Family Medical History: COPD Additional Family Medical History / Comment(s): Mother of COPD at the age of 71 yrs. General Exam - General Exam Comments Initial Comments: This is a well-developed well-nourished awake alert oriented 3 female Limitations: no limitations General appearance: alert, anxious, in distress Head exam: Present: atraumatic, normocephalic, normal inspection Eye exam: Present: normal appearance, PERRL, EOMI. Absent: scleral icterus, conjunctival injection, periorbital swelling ENT exam: Present: mucous membranes dry Neck exam: Present: normal inspection. Absent: tenderness, meningismus, lymphadenopathy Respiratory exam: Present: wheezes, accessory muscle use, decreased breath sounds. Absent: respiratory distress, rales, rhonchi, stridor Cardiovascular Exam: Present: normal rhythm, tachycardia, normal heart sounds. Absent: systolic murmur, diastolic murmur, rubs, gallop, clicks GI/Abdominal exam: Present: soft, normal bowel sounds. Absent: distended, tenderness, guarding, rebound, rigid Extremities exam: Present: normal inspection, full ROM, normal capillary refill. Absent: tenderness, pedal edema, joint swelling, calf tenderness Back exam: Present: normal inspection Neurological exam: Present: alert, oriented X3, CN II-XII intact Psychiatric exam: Present: normal affect, normal mood Skin exam: Present: warm, dry, intact, normal color. Absent: rash Course Vital Signs 07/22/17 07/22/17 07/22/17 09:39 10:07 10:17 Temperature 98.1 F Pulse Rate 108 H 96 96 Respiratory 20 Rate Blood Pressure 138/80 O2 Sat by Pulse 100 Oximetry 07/22/17 07/22/17 11:30 11:31 Temperature Pulse Rate 87 84 Respiratory 18 Rate Blood Pressure 138/69 O2 Sat by Pulse 98 Oximetry - Reevaluation(s) Reevaluation #1: 07/22/17 11:55 Patient did get improvement after the initial treatment she saw some wheezing in the bases. She will get another updraft treatment. Chest Pain MDM - MDM Reevaluation patient reveals that she feels much improved To go home she'll be discharged on appropriate medication she does have updrafts at home. Disposition Clinical Impression: COPD exacerbation Disposition: HOME SELF-CARE Instructions: COPD (Chronic Obstructive Pulmonary Disease) (ED) Prescriptions: predniSONE 20 mg PO BID #10 tab Referrals: Eric Loo DO [Primary Care Provider] - 1-2 days
[2017-07-22 10:13] LABS: Basophils % (A) 1 %; CH 27.8; CHCM 33.5; Eosinophils # (A) 0.7 k/uL (0-0.7); Eosinophils % (A) 11 %; HCT 42.3 % (34.0-46.0); HDW 2.89; HGB 13.9 gm/dL (11.4-16.0); Luc # (Auto) 0.24; Luc % (Auto) 4; Lymphocytes # (A) 1.9 k/uL (1.0-4.8); Lymphocytes % (A) 31 %; MCH 27.3 pg (25.0-35.0); MCHC 32.9 g/dL (31.0-37.0); MCV 83.2 fL (80.0-100.0); Mean Platelet Volume 6.6; Monocytes # (A) 0.6 k/uL (0-1.0); Monocytes % (A) 9 %; Neutrophils # (A) 2.7 k/uL (1.3-7.7); Neutrophils % (A) 45 %; RBC 5.09 m/uL (3.80-5.40); RDW 13.2 % (11.5-15.5); WBC 6.1 k/uL (3.8-10.6); WBC (Perox) 5.55
[2017-07-22 10:19] LABS: ALT 34 U/L (9-52); AST 24 U/L (14-36); Alkaline Phosphatase 112 U/L (38-126); Anion Gap 13 mmol/L; Blood Urea Nitrogen 15 mg/dL (7-17); Calcium 9.9 mg/dL (8.4-10.2); Carbon Dioxide 22 mmol/L (22-30); Chloride 105 mmol/L (98-107); Glucose 105 mg/dL (74-99); Magnesium 1.9 mg/dL (1.6-2.3); Non-African American GFR(MDRD) >60 (>60 ml/min/1.73 sqM); Potassium 3.7 mmol/L (3.5-5.1); Sodium 140 mmol/L (137-145); Total Bilirubin 0.3 mg/dL (0.2-1.3); Total Protein 7.7 g/dL (6.3-8.2)
[2017-07-22 10:20] LABS: Partial Thromboplastin Time 23.4 sec (22.0-30.0); Prothrombin Time 10.3 sec (9.0-12.0)
[2017-07-22 10:45] LABS: Creatine Kinase 104 U/L (30-135)
--- NOTE | 2017-07-22 10:47 | XR ---
EXAMINATION TYPE: XR chest 2V DATE OF EXAM: 07/22/2017 COMPARISON: Chest x-ray June 07, 2017. CT chest March 08, 2017. HISTORY: COPD with shortness of breath and chest tightness. TECHNIQUE: Frontal and lateral views of the chest are obtained. FINDINGS: There is no focal air space opacity, pleural effusion, or pneumothorax seen. Mild underly ing emphysematous change is seen. The cardiac silhouette size is upper limits of normal currently. Me tallic anchors in both scapula are redemonstrated. There is resection of distal left clavicle felt pr esent which is stable. IMPRESSION: Chronic changes without acute process. No significant change from prior chest x-ray.
[2017-07-22 10:58] LABS: Creatine Kinase MB 1.1 ng/mL (0.0-2.4); Troponin I <0.012 ng/mL (0.000-0.034)
[2017-07-22 12:35] VITALS: BP 136/78; PULSE 81; RESP 20; TEMP 98.7
== END 2017-07-22 12:10 | disposition home or self-care (01) ==
LOC: EC 09:28
DX: J44.1 Chronic obstructive pulmonary disease with (acute) exacerbation (principal); R07.89 Other chest pain; M79.7 Fibromyalgia; M19.90 Unspecified osteoarthritis, unspecified site; F32.9 Major depressive disorder, single episode, unspecified; F41.9 Anxiety disorder, unspecified; F90.9 Attention-deficit hyperactivity disorder, unspecified type; Z86.14 Personal history of Methicillin resistant Staphylococcus aureus infection; Z79.899 Other long term (current) drug therapy; Z91.013 Allergy to seafood
CPT/HCPCS: 36415; 94640 ×2; 93005; 83880; 80053; 82550; 82553; 83735; 84484; 85025; 85610; 85730; 71020; 99285; 96365; 96375; 96361; J2930; J3475

== ENCOUNTER 2017-10-04 15:06 | Observation (INO) | payer MEDICARE, OTHER ==
[2017-10-04 15:29] LABS: Glucose,Whole Blood 132 mg/dL (75-99)
[2017-10-04] MEDS ORDERED: SODIUM CHLORIDE 0.9% 1,000 ML IV ONE (15:48)
--- NOTE | 2017-10-04 15:54 | ED ---
General Adult HPI - General Chief complaint: Altered Mental Status Stated complaint: altered mental status Time Seen by Provider: 10/04/17 15:37 Source: police, EMS, RN notes reviewed Mode of arrival: EMS Limitations: altered mental status - History of Present Illness Initial comments: Patient is a 56-year-old female presenting to the emergency department for change in mental status. Patient is brought in by EMS with police escort. There is a suspected history of drug use. Patient is covered with stool. Patient is oriented only to first name and provides no additional history. Patient is crying. Unclear patient has a history of similar symptoms previously. Patient occasionally will answer yes or no. Patient states no pain. - Related Data Home Medications Medication Instructions Recorded Confirmed Gabapentin 800 mg PO TID 05/10/14 10/04/17 Hydrocodone/Acetaminophen [Shirley 1 tab PO QID PRN 08/07/16 10/04/17 10-325] Dextroamphetamine/Amphetamine 20 mg PO BID 11/20/16 10/04/17 [Adderall] Doxepin HCl [SINEquan] 50 mg PO HS 11/20/16 10/04/17 Albuterol Nebulized [Ventolin 2.5 mg INHALATION RT-Q6H PRN 10/04/17 10/04/17 Nebulized] Baclofen [Lioresal] 10 mg PO TID PRN 10/04/17 10/04/17 Montelukast [Singulair] 10 mg PO HS 10/04/17 10/04/17 Allergies Allergy/AdvReac Type Severity Reaction Status Date / Time shellfish derived Allergy Rash/Hives Verified 10/04/17 15:34 Review of Systems ROS Statement: Those systems with pertinent positive or pertinent negative responses have been documented in the HPI. ROS Other: All systems not noted in ROS Statement are negative. Limitations: ROS unobtainable due to patients medical condition Past Medical History Past Medical History: Asthma, COPD, Fibromyalgia, Osteoarthritis (OA), Pneumonia Additional Past Medical History / Comment(s): Hepatitis C with tx and now cured , chronic cervical and back pain, DDD, scoliosis. History of Any Multi-Drug Resistant Organisms: MRSA Date of last positivie culture/infection: 02/19/15 MDRO Source:: Right Foot Past Surgical History: Orthopedic Surgery, Tonsillectomy, Tubal Ligation Additional Past Surgical History / Comment(s): 12/29/16 bronchoscopy with BAL, TOVA SHOULDER,TOVA WRISTS,LT COLLAR BONE, L ovarian cystectomy Past Anesthesia/Blood Transfusion Reactions: No Reported Reaction Past Psychological History: ADD/ADHD, Anxiety, Depression Smoking Status: Unknown if ever smoked Past Alcohol Use History: Unable to Obtain Past Drug Use History: Unable to Obtain - Past Family History Father Family Medical History: Cancer Additional Family Medical History / Comment(s): Father of LUNG cancer at the age of 69yrs. He was a smoker. Mother Family Medical History: COPD Additional Family Medical History / Comment(s): Mother of COPD at the age of 71 yrs. General Exam Limitations: altered mental status General appearance: alert, appears intoxicated, anxious Head exam: Present: atraumatic Eye exam: Present: normal appearance, PERRL, EOMI ENT exam: Present: normal oropharynx, other (Lips appear dry) Neck exam: Present: normal inspection. Absent: tenderness Respiratory exam: Present: normal lung sounds bilaterally Cardiovascular Exam: Present: regular rate, normal rhythm GI/Abdominal exam: Present: soft. Absent: distended, tenderness Extremities exam: Present: normal inspection, full ROM. Absent: tenderness Neurological exam: Present: alert, altered Expanded Neurological exam: Present: protecting the airway Patient oriented to: Present: person. Absent: place, time Cranial nerves: EOM's Intact: Normal Motor strength exam: RUE: 5, LUE: 5, RLE: 5, LLE: 5 Eye Response: (4) open spontaneously Motor Response: (6) obeys commands Verbal Response: (3) inappropriate words Psychiatric exam: Present: depressed, anxious Skin exam: Present: normal color Course Vital Signs 10/04/17 10/04/17 15:20 16:59 Temperature 97.8 F Pulse Rate 98 104 H Respiratory 20 22 Rate Blood Pressure 149/82 152/102 O2 Sat by Pulse 97 99 Oximetry EKG Findings - EKG Comments: EKG Findings:: EKG shows normal sinus rhythm 91. ID 116. QRS 80. QT 392. QTC 482. Left axis. Normal QRS. No acute ST change. Medical Decision Making - Medical Decision Making Patient reevaluated without significant change. Etiology of altered mental status is unclear at this time. Case was discussed in detail with Dr. Aguilar, who will admit for Dr. Loo. He is covering Dr. funes. Neurology will be consulted. - Lab Data Result diagrams: 10/04/17 15:33 10/04/17 15:33 Lab Results 10/04/17 10/04/17 10/04/17 Range/Units 15:27 15:33 15:33 WBC (3.8-10.6) k/uL RBC (3.80-5.40) m/uL Hgb (11.4-16.0) gm/dL Hct (34.0-46.0) % MCV (80.0-100.0) fL MCH (25.0-35.0) pg MCHC (31.0-37.0) g/dL RDW (11.5-15.5) % Plt Count (150-450) k/uL Neutrophils % % Lymphocytes % % Monocytes % % Eosinophils % % Basophils % % Neutrophils # (1.3-7.7) k/uL Lymphocytes # (1.0-4.8) k/uL Monocytes # (0-1.0) k/uL Eosinophils # (0-0.7) k/uL Basophils # (0-0.2) k/uL PT (9.0-12.0) sec INR (<1.2) APTT (22.0-30.0) sec Sodium (137-145) mmol/L Potassium (3.5-5.1) mmol/L Chloride (98-107) mmol/L Carbon Dioxide (22-30) mmol/L Anion Gap mmol/L BUN (7-17) mg/dL Creatinine (0.52-1.04) mg/dL Est GFR (MDRD) Af Amer (>60 ml/min/1.73 sqM) Est GFR (MDRD) Non-Af (>60 ml/min/1.73 sqM) Glucose (74-99) mg/dL POC Glucose (mg/dL) 132 H (75-99) mg/dL POC Glu [employer] Installer ID Ashlyn Patino Calcium (8.4-10.2) mg/dL Total Bilirubin (0.2-1.3) mg/dL AST (14-36) U/L ALT (9-52) U/L Alkaline Phosphatase (38-126) U/L Ammonia 20 (<30) umol/L Total Creatine Kinase 90 (30-135) U/L CK-MB (CK-2) 1.6 (0.0-2.4) ng/mL CK-MB (CK-2) Rel Index 1.8 Troponin I <0.012 (0.000-0.034) ng/mL Total Protein (6.3-8.2) g/dL Albumin (3.5-5.0) g/dL Urine Color Urine Appearance (Clear) Urine pH (5.0-8.0) Ur Specific [place] (1.001-1.035) Urine Protein (Negative) Urine Glucose (UA) (Negative) Urine Ketones (Negative) Urine Blood (Negative) Urine Nitrite (Negative) Urine Bilirubin (Negative) Urine Urobilinogen (<2.0) mg/dL Ur Leukocyte Esterase (Negative) Urine WBC (0-5) /hpf Urine Mucus (None) /hpf Urine Opiates Screen (NotDetected) Ur Oxycodone Screen (NotDetected) Urine Methadone Screen (NotDetected) Ur Propoxyphene Screen (NotDetected) Ur Barbiturates Screen (NotDetected) U Tricyclic Antidepress (NotDetected) Ur Phencyclidine Scrn (NotDetected) Ur Amphetamines Screen (NotDetected) U Methamphetamines Scrn (NotDetected) U Benzodiazepines Scrn (NotDetected) Urine Cocaine Screen (NotDetected) U Marijuana (THC) Screen (NotDetected) Serum Alcohol mg/dL 10/04/17 10/04/17 10/04/17 Range/Units 15:33 15:33 15:33 WBC 11.1 H (3.8-10.6) k/uL RBC 5.37 (3.80-5.40) m/uL Hgb 14.7 (11.4-16.0) gm/dL Hct 45.3 (34.0-46.0) % MCV 84.4 (80.0-100.0) fL MCH 27.3 (25.0-35.0) pg MCHC 32.3 (31.0-37.0) g/dL RDW 15.0 (11.5-15.5) % Plt Count 341 (150-450) k/uL Neutrophils % 70 % Lymphocytes % 19 % Monocytes % 7 % Eosinophils % 2 % Basophils % 0 % Neutrophils # 7.7 (1.3-7.7) k/uL Lymphocytes # 2.1 (1.0-4.8) k/uL Monocytes # 0.8 (0-1.0) k/uL Eosinophils # 0.3 (0-0.7) k/uL Basophils # 0.1 (0-0.2) k/uL PT (9.0-12.0) sec INR (<1.2) APTT (22.0-30.0) sec Sodium 144 (137-145) mmol/L Potassium 4.6 (3.5-5.1) mmol/L Chloride 106 (98-107) mmol/L Carbon Dioxide 25 (22-30) mmol/L Anion Gap 13 mmol/L BUN 23 H (7-17) mg/dL Creatinine 0.69 (0.52-1.04) mg/dL Est GFR (MDRD) Af Amer >60 (>60 ml/min/1.73 sqM) Est GFR (MDRD) Non-Af >60 (>60 ml/min/1.73 sqM) Glucose 122 H (74-99) mg/dL POC Glucose (mg/dL) (75-99) mg/dL POC Glu Geothermal Installer ID Calcium 10.1 (8.4-10.2) mg/dL Total Bilirubin 0.7 (0.2-1.3) mg/dL AST 36 (14-36) U/L ALT 34 (9-52) U/L Alkaline Phosphatase 153 H (38-126) U/L Ammonia (<30) umol/L Total Creatine Kinase (30-135) U/L CK-MB (CK-2) (0.0-2.4) ng/mL CK-MB (CK-2) Rel Index Troponin I (0.000-0.034) ng/mL Total Protein 7.4 (6.3-8.2) g/dL Albumin 4.5 (3.5-5.0) g/dL Urine Color Yellow Urine Appearance Cloudy H (Clear) Urine pH 7.0 (5.0-8.0) Ur Specific [place] 1.022 (1.001-1.035) Urine Protein Trace H (Negative) Urine Glucose (UA) Negative (Negative) Urine Ketones Negative (Negative) Urine Blood Negative (Negative) Urine Nitrite Negative (Negative) Urine Bilirubin Negative (Negative) Urine Urobilinogen <2.0 (<2.0) mg/dL Ur Leukocyte Esterase Negative (Negative) Urine WBC 3 (0-5) /hpf Urine Mucus Rare H (None) /hpf Urine Opiates Screen Not Detected (NotDetected) Ur Oxycodone Screen Not Detected (NotDetected) Urine Methadone Screen Not Detected (NotDetected) Ur Propoxyphene Screen Not Detected (NotDetected) Ur Barbiturates Screen Not Detected (NotDetected) U Tricyclic Antidepress Detected H (NotDetected) Ur Phencyclidine Scrn Not Detected (NotDetected) Ur Amphetamines Screen Not Detected (NotDetected) U Methamphetamines Scrn Not Detected (NotDetected) U Benzodiazepines Scrn Detected H (NotDetected) Urine Cocaine Screen Not Detected (NotDetected) U Marijuana (THC) Screen Not Detected (NotDetected) Serum Alcohol <10 mg/dL 10/04/17 Range/Units 15:33 WBC (3.8-10.6) k/uL RBC (3.80-5.40) m/uL Hgb (11.4-16.0) gm/dL Hct (34.0-46.0) % MCV (80.0-100.0) fL MCH (25.0-35.0) pg MCHC (31.0-37.0) g/dL RDW (11.5-15.5) % Plt Count (150-450) k/uL Neutrophils % % Lymphocytes % % Monocytes % % Eosinophils % % Basophils % % Neutrophils # (1.3-7.7) k/uL Lymphocytes # (1.0-4.8) k/uL Monocytes # (0-1.0) k/uL Eosinophils # (0-0.7) k/uL Basophils # (0-0.2) k/uL PT 10.0 (9.0-12.0) sec INR 1.0 (<1.2) APTT 22.8 (22.0-30.0) sec Sodium (137-145) mmol/L Potassium (3.5-5.1) mmol/L Chloride (98-107) mmol/L Carbon Dioxide (22-30) mmol/L Anion Gap mmol/L BUN (7-17) mg/dL Creatinine (0.52-1.04) mg/dL Est GFR (MDRD) Af Amer (>60 ml/min/1.73 sqM) Est GFR (MDRD) Non-Af (>60 ml/min/1.73 sqM) Glucose (74-99) mg/dL POC Glucose (mg/dL) (75-99) mg/dL POC Glu Geothermal Installer ID Calcium (8.4-10.2) mg/dL Total Bilirubin (0.2-1.3) mg/dL AST (14-36) U/L ALT (9-52) U/L Alkaline Phosphatase (38-126) U/L Ammonia (<30) umol/L Total Creatine Kinase (30-135) U/L CK-MB (CK-2) (0.0-2.4) ng/mL CK-MB (CK-2) Rel Index Troponin I (0.000-0.034) ng/mL Total Protein (6.3-8.2) g/dL Albumin (3.5-5.0) g/dL Urine Color Urine Appearance (Clear) Urine pH (5.0-8.0) Ur Specific [place] (1.001-1.035) Urine Protein (Negative) Urine Glucose (UA) (Negative) Urine Ketones (Negative) Urine Blood (Negative) Urine Nitrite (Negative) Urine Bilirubin (Negative) Urine Urobilinogen (<2.0) mg/dL Ur Leukocyte Esterase (Negative) Urine WBC (0-5) /hpf Urine Mucus (None) /hpf Urine Opiates Screen (NotDetected) Ur Oxycodone Screen (NotDetected) Urine Methadone Screen (NotDetected) Ur Propoxyphene Screen (NotDetected) Ur Barbiturates Screen (NotDetected) U Tricyclic Antidepress (NotDetected) Ur Phencyclidine Scrn (NotDetected) Ur Amphetamines Screen (NotDetected) U Methamphetamines Scrn (NotDetected) U Benzodiazepines Scrn (NotDetected) Urine Cocaine Screen (NotDetected) U Marijuana (THC) Screen (NotDetected) Serum Alcohol mg/dL - Radiology Data Radiology results: report reviewed (Computed tomography scan of the brain does have artifact present. No definite intracranial abnormality.), image reviewed ( Chest x-ray shows no definitive acute process.) Disposition Clinical Impression: Altered mental status Disposition: ADMITTED IP TO THIS HOSP Referrals: Eric Loo DO [Primary Care Provider] - 1-2 days Decision Time: 17:09
[2017-10-04 16:01] LABS: Basophils % (A) 0 %; Eosinophils % (A) 2 %; HCT 45.3 % (34.0-46.0); HGB 14.7 gm/dL (11.4-16.0); Lymphocytes # (A) 2.1 k/uL (1.0-4.8); Lymphocytes % (A) 19 %; MCH 27.3 pg (25.0-35.0); MCHC 32.3 g/dL (31.0-37.0); MCV 84.4 fL (80.0-100.0); Mean Platelet Volume 7.9; Monocytes # (A) 0.8 k/uL (0-1.0); Monocytes % (A) 7 %; Neutrophils # (A) 7.7 k/uL (1.3-7.7); Neutrophils % (A) 70 %; Platelet Count 341 k/uL (150-450); RBC 5.37 m/uL (3.80-5.40); WBC 11.1 k/uL (3.8-10.6)
[2017-10-04 16:02] LABS: Basophils # (A) 0.1 k/uL (0-0.2); Eosinophils # (A) 0.3 k/uL (0-0.7)
[2017-10-04 16:08] LABS: Appearance,Urine Cloudy (Clear); Bilirubin,Urine Negative (Negative); Blood,Urine Negative (Negative); Color,Urine Yellow; Glucose,Urine (UA) Negative (Negative); Ketones,Urine Negative (Negative); Leukocyte Esterase,Urine Negative (Negative); Mucus,Urine Rare /hpf; Nitrite,Urine Negative (Negative); Protein,Urine Trace (Negative); Specific Gravity,Urine 1.022 (1.001-1.035); Urobilinogen,Urine <2.0 mg/dL (<2.0); WBC,Urine 3 /hpf (0-5)
[2017-10-04 16:10] LABS: Albumin 4.5 g/dL (3.5-5.0); Alcohol <10 mg/dL; Anion Gap 13 mmol/L; Calcium 10.1 mg/dL (8.4-10.2); Carbon Dioxide 25 mmol/L (22-30); Chloride 106 mmol/L (98-107); Glucose 122 mg/dL (74-99); Sodium 144 mmol/L (137-145); Total Bilirubin 0.7 mg/dL (0.2-1.3); Total Protein 7.4 g/dL (6.3-8.2)
[2017-10-04 16:11] LABS: Partial Thromboplastin Time 22.8 sec (22.0-30.0)
[2017-10-04 16:12] LABS: ALT 34 U/L (9-52); AST 36 U/L (14-36); Blood Urea Nitrogen 23 mg/dL (7-17); Potassium 4.6 mmol/L (3.5-5.1)
[2017-10-04 16:13] LABS: Alkaline Phosphatase 153 U/L (38-126)
[2017-10-04 16:15] LABS: Amphetamine Screen,Urine Not Detected (NotDetected); Barbiturate Screen,Urine Not Detected (NotDetected); Benzodiazepines Screen,Urine Detected (NotDetected); Cocaine Screen,Urine Not Detected (NotDetected); Methadone Screen, Urine Not Detected (NotDetected); Opiate Screen,Urine Not Detected (NotDetected); Oxycodone Screen, Urine Not Detected (NotDetected); Phencyclidine Screen,Urine Not Detected (NotDetected); Tricyclic Antidepressant,Urine Detected (NotDetected); Urn Cannabinoid Scrn Not Detected (NotDetected)
[2017-10-04 16:22] LABS: Creatine Kinase 90 U/L (30-135)
--- NOTE | 2017-10-04 16:29 | CT ---
EXAMINATION TYPE: CT brain wo con DATE OF EXAM: 10/04/2017 COMPARISON: Brain MRI 06/30/2010 HISTORY: 56-year-old female altered mental status. Patient increasingly agitated during exam and larissa ble to follow directions. TECHNIQUE: Examination was done in axial plane without intravenous contrast. Coronal and sagittal r econstructions performed. CT DLP: 2296.2 mGycm Automated exposure control for dose reduction was used. FINDINGS: There is diffuse motion artifacts degrading the exam. The posterior cranial fossa is markedly limited in assessment. Most of the supratentorial shows less artifacts. Allowing for these limitations, there is no evidence of acute intracranial hemorrhage, acute ischemi c changes, mass, mass-effect, or extra-axial fluid collection. There is no effacement of cerebral bolton lci or basal subarachnoid cisterns. There is no hydrocephalus. There is no midline shift. Benavidez-whi te matter distinction is preserved. Paranasal sinuses and mastoid air cells well pneumatized. Orbits and globes appear grossly intact. IMPRESSION: Motion degraded and limited exam. No definite acute intracranial abnormality seen.
--- NOTE | 2017-10-04 16:30 | XR ---
EXAMINATION TYPE: XR chest 2V DATE OF EXAM: 10/04/2017 COMPARISON: Prior chest x-ray 07/22/2017, 08/03/2017 HISTORY: Altered mental status TECHNIQUE: Frontal and lateral views of the chest are obtained. FINDINGS: There is no focal air space opacity, pleural effusion, or pneumothorax seen. The cardiac silhouette size is within normal limits. Postop change again noted to the distal clavicles. Heart si ze is accentuated which could be at least in part technical, suspect the patient is rotated. The osse ous structures are intact. IMPRESSION: Difficult to exclude cardiomegaly, follow-up as indicated.
[2017-10-04 16:35] LABS: Creatine Kinase MB 1.6 ng/mL (0.0-2.4); Troponin I <0.012 ng/mL (0.000-0.034)
[2017-10-04] MEDS ORDERED: LORazepam 2 MG/ML INJ IV STA (16:36)
[2017-10-04] MEDS ORDERED: LORazepam 2 MG/ML INJ IV PRN (17:10)
[2017-10-04] MEDS ORDERED: NALOXONE 0.4 MG/ML 1 ML VIAL IV PRN (17:10)
[2017-10-04] MEDS ORDERED: ALBUTEROL NEBULIZED 2.5 MG/3 ML INHALATION PRN (20:45)
[2017-10-04] MEDS: SODIUM CHLORIDE 0.9% 1,000 ML IV SCH (20:53)
[2017-10-04 21:47] LABS: Creatine Kinase 101 U/L (30-135)
[2017-10-04] MEDS: HEPARIN SODIUM,PORCINE 5,000 UNIT/ML 1 ML VIAL SQ SCH (21:52)
[2017-10-04 22:00] LABS: Creatine Kinase MB 1.7 ng/mL (0.0-2.4); Troponin I <0.012 ng/mL (0.000-0.034)
[2017-10-04] MEDS: LORazepam 2 MG/ML INJ IV PRN ×2 (22:11→23:56)
[2017-10-05] MEDS: LORazepam 2 MG/ML INJ IV PRN (01:08)
[2017-10-05] MEDS: SODIUM CHLORIDE 0.9% 1,000 ML IV SCH ×3 (01:10→16:20)
[2017-10-05 01:13] LABS: Glucose,Whole Blood 113 mg/dL (75-99)
[2017-10-05] MEDS ORDERED: HALOPERIDOL LACTATE 5 MG/ML 1 ML VIAL IM ONE (01:32)
[2017-10-05 03:48] LABS: Basophils % (A) 1 %; Eosinophils # (A) 0.3 k/uL (0-0.7); Eosinophils % (A) 3 %; HCT 39.8 % (34.0-46.0); Lymphocytes # (A) 1.7 k/uL (1.0-4.8); Lymphocytes % (A) 21 %; MCH 27.6 pg (25.0-35.0); MCHC 32.7 g/dL (31.0-37.0); MCV 84.3 fL (80.0-100.0); Mean Platelet Volume 8.3; Monocytes # (A) 0.8 k/uL (0-1.0); Monocytes % (A) 9 %; Neutrophils # (A) 5.3 k/uL (1.3-7.7); Neutrophils % (A) 65 %; Platelet Count 300 k/uL (150-450); RBC 4.72 m/uL (3.80-5.40); RDW 13.4 % (11.5-15.5); WBC 8.2 k/uL (3.8-10.6)
[2017-10-05 04:02] LABS: ALT 39 U/L (9-52); AST 36 U/L (14-36); Albumin 4.1 g/dL (3.5-5.0); Alkaline Phosphatase 129 U/L (38-126); Anion Gap 13 mmol/L; Blood Urea Nitrogen 25 mg/dL (7-17); Calcium 9.5 mg/dL (8.4-10.2); Carbon Dioxide 22 mmol/L (22-30); Chloride 110 mmol/L (98-107); Glucose 109 mg/dL (74-99); Potassium 4.1 mmol/L (3.5-5.1); Sodium 145 mmol/L (137-145); Total Bilirubin 0.7 mg/dL (0.2-1.3); Total Protein 6.8 g/dL (6.3-8.2)
[2017-10-05 04:12] LABS: Creatine Kinase 161 U/L (30-135)
[2017-10-05 04:26] LABS: Creatine Kinase MB 1.7 ng/mL (0.0-2.4); Troponin I <0.012 ng/mL (0.000-0.034)
--- NOTE | 2017-10-05 05:36 | HP ---
HISTORY AND PHYSICAL DATE OF SERVICE: 10/04/2017 CHIEF COMPLAINT: Change in mental status. HISTORY OF PRESENT ILLNESS: This 56-year-old woman with a past medical history of multiple medical problems including history of asthma, history of COPD, fibromyalgia, history of pneumonia , hepatitis C treated, history of DJD, history of MRSA, history ADD, ADHD, anxiety , depression being followed by Dr. Eric Loo in the outpatient setting recently admitted with acute bronchial asthma, fibromyalgia. Patient improved significantly. Patient went home. Then currently the patient was noted to have some change in mental status. The patient was brought by EMS with police escort. There is a suspected history of drug use per chart and the drug screen done in the emergency room showed tricyclic antidepressant and benzodiazepines. The patient is confused and combative and had uncontrollable movements of the trunk and the limbs also and unable to give coherent history. The patient is apparently crying in the ER. Yes and no answers are provided not very coherently. A CAT scan of the brain was done, which showed motion degraded limited exam. No acute abnormality was noted. There is no history of any trauma at this time. PAST MEDICAL HISTORY: History of asthma, COPD, fibromyalgia, DJD, pneumonia, history of hepatitis C. MEDICATIONS: Medications prior to admission include: 1. Singular 10 mg q.h.s. 2. Hydrocodone 10 mg q.i.d. p.r.n. 3. Gabapentin 800 mg t.i.d. 4. Doxepin 50 mg q.h.s. 5. Adderall 20 mg p.o. b.i.d. 6. Lioresal 10 mg t.i.d. p.r.n. 7. Ventolin 2.5 q.6 p.r.n. ALLERGIES: Allergies are SHELLFISH. FAMILY HISTORY: History of lung cancer in the family. SOCIAL HISTORY AND REVIEW OF SYSTEMS: Could not be taken at length because of the patient's change in mental status. PHYSICAL EXAM: Patient is conscious, minimally verbal, movements present. Pulse is 115, blood pressure 159/95, respiration 18, temperature 97 degrees, pulse ox 97% room air. HEENT: Conjunctivae normal. Oral mucosa moist. Neck is no jugular venous distention or carotid bruit. No lymph node enlargement. CARDIOVASCULAR: S1 and S2 muffled. No S3, no S4. RESPIRATORY: Breath sounds diminished at the bases. A few scattered rhonchi. No crackles. ABDOMEN: Soft, nontender. No mass palpable. LEGS: No edema, no swelling. NERVOUS SYSTEM: Higher functions as mentioned earlier. Moves all 4 limbs. No focal motor deficits. Abnormal movements as noted earlier. Otherwise, power appears to be diffusely weak. No sensory abnormalities. No neck stiffness. LYMPHATICS: No lymphadenopathy of the neck, axillae or groin. SKIN: No ulcer, rash or bleeding. JOINTS No active deforming arthropathy. LAB INVESTIGATIONS: WBC 11.1. Glucose 122. Alkaline phosphatase 153. UA noted. ASSESSMENT: 1. Change in mental status, acute metabolic encephalopathy multifactorial. 2. Rule out substance abuse. 3. Involuntary movements of questionable etiology, rule out overdose. 4. Rule out gabapentin toxicity. 5. History of asthma. 6. History of chronic obstructive pulmonary disease. 7. History of fibromyalgia. 8. History of degenerative joint disease. 9. History of pneumonia. 10.History of hepatitis C. 11.History of degenerative joint disease and chronic cervical and back pain. 12.History of Methicillin-resistant Staphylococcus aureus. 13.History attention deficit disorder, attention deficit hyperactivity disorder. 14.History of anxiety and depression. RECOMMENDATIONS AND DISCUSSION: In this 56-year-old woman who presented with multiple complex medical issues, will monitor the patient closely. Continue the current medications. Continue symptomatic treatment. Exact etiology of the abnormal movements and change in mental status unknown at this time. I would recommend to hold the home medications and consider the possibility of overdose even though the drug screen is negative. I would get a psychiatric and neurology consultation. Gabapentin level will be obtained. Otherwise, DVT prophylaxis. Prognosis guarded. Flu swab. Will continue with neuro checks and patient safety measures also. Overall prognosis is extremely guarded because of the multiple complex medical issues and substance abuse with one of newer drugs such as K2 or spice also could not be ruled out even though the drug screen is otherwise negative. We will continue to monitor. Once again, the prognosis guarded because of multiple complex medical issues and further recommendations to follow. See orders for details. Ativan will be used on a p.r.n. basis for anxiety and to control the abnormal movements. MMODL / IJN: [id number] / VICENTE
[2017-10-05] MEDS: HEPARIN SODIUM,PORCINE 5,000 UNIT/ML 1 ML VIAL SQ SCH ×2 (07:51→20:50)
[2017-10-05] MEDS ORDERED: OLANZapine 5 MG TAB PO STA (16:32)
[2017-10-05] MEDS: OLANZapine 2.5 MG TAB PO SCH (20:50)
[2017-10-05] MEDS: ACETAMINOPHEN TAB 325 MG TAB PO PRN (20:50)
[2017-10-05] MEDS ORDERED: LORazepam 1 MG TAB PO PRN (21:02)
--- NOTE | 2017-10-05 22:07 | CONS ---
CONSULTATION DATE OF SERVICE: 10/05/2017. PURPOSE FOR CONSULTATION: Evaluate for mental status change. HISTORY OF PRESENT ILLNESS: The patient is a 56-year-old female. She has had diagnoses of some psychiatric issues including ADHD, anxiety and depression. My understanding is that EMS came to her home. It was not clear who called EMS, though EMS found her to be confused and disoriented. She apparently was lying in excrement and that things in her house were quite disorderly. EMS found the patient to be confused, combative, and having uncontrollable movements of trunk and limbs. She was not able to give a coherent history. There was concern for a possible drug use. It is noted that the patient is prescribed Adderall 20 mg twice a day and doxepin 50 mg a day as her only psychotropic medications. She is also on Carmel 10 mg 1 tab q.i.d. p.r.n. as other psychoactive medication. She has a history of asthma, COPD, fibromyalgia, osteoarthritis, and pneumonia. The patient has been confused and disoriented. She has not been able to give any reliable information about recent or long-term issues. She was not able to give any information about the state she was in when she was found at home. In doing neuro checks, nursing has noted that she has been disoriented. She has inappropriate facial expression. She was inappropriate in verbal response. She had slurred, garbled speech. When I saw the patient she was on the telephone apparently talking to her sister. It was not clear that she had much of a conversation with her sister. It was noteworthy that her legs were moving in quite a violent manner with random jerking, abnormal movements mainly involved her lower extremities. After she hung up the phone and started talking to me the movement foot seemed to quiet down. The patient was not able to provide any information. She did say that she was at [facility]. She otherwise could not answer any orienting questions. When I asked her the month, her response was "18." Beyond that, she did not make much effort to answer questions at all. When I asked her what had been going on at home that led to her coming in the hospital, she said "I do not know." She seemed to have difficulty following the conversation. It is noted that she had a hospitalization last December for breathing difficulties. There was a psychiatric consultation with Dr. Markham, who documented that the patient reported a history of recurrent depression. She has been on Prozac 60 mg a day. She reported 5 psychiatric admissions in the past. Apparently she had made efforts to harm herself. She acknowledged significant anxiety and mood issues. Her only psychotropic medication at that time was Prozac 60 mg a day. MENTAL STATUS: Patient was lying in bed. She was able to follow basic commands. She answered a few questions with vague responses. She had restlessness in her legs that quieted through the course of the interview. She only answered a few questions. She was not spontaneous or interactive. Her affect was flat. She had a BE will GERD manner. Her mood was dysphoric. She seemed moderately distressed. She did make the comment that she needed to be out of the hospital, though did not give any more information in regards to her situation. ASSESSMENT: This 56-year-old female is diagnosed with delirium. It is unclear what factors may be contributing to her current situation. She is positive for tricyclic antidepressants and benzodiazepines as the only positive findings. It is unclear what is contributing to her movement disorder. I will start the patient on Zyprexa 2.5 mg 3 times a day. The aim of Zyprexa is to help reduce some of her disorientation. There may be some improvement in her movement disorder. I will continue to follow. MMODL / IJN: [id number] /
[2017-10-06] MEDS ORDERED: ACETAMINOPHEN TAB 325 MG TAB ONE (04:15)
--- NOTE | 2017-10-06 05:49 | PN ---
PROGRESS NOTE DATE OF SERVICE: 10/05/2017 This 56-year-old woman was admitted with multiple medical problems, continues to be confused. The patient is being closely monitored. No chest pain. No palpitations. No fever. The patient is slightly more alert compared to yesterday. The patient soft restraints for administation of meds and patient safety. Psychiatry is following the patient. Zyprexa has been initiated. PHYSICAL EXAM: On exam, the patient is conscious, but confused. Pulse 81, blood pressure 127/96 , respirations 16, temperature 98.1, pulse ox 97% on room air. HEENT: Conjunctivae normal. NECK: No jugular venous distention. CARDIOVASCULAR: S1 and S2 muffled. RESPIRATORY: Breath sounds diminished at the bases. No rhonchi, no crackles. ABDOMEN: Soft, nontender. LEGS: No edema, no swelling. NERVOUS SYSTEM: No focal deficits. LABS: CBC within normal. Sodium 145, potassium 4.1 and alkaline phosphatase 129. ASSESSMENT: 1. Change in mental status, acute metabolic encephalopathy multifactorial. 2. Rule out substance abuse. 3. Involuntary movements of questionable etiology, overdose. 4. Rule out gabapentin toxicity. 5. History of asthma. 6. History of chronic obstructive pulmonary disease. 7. History of fibromyalgia. 8. History of degenerative joint disease. 9. History of pneumonia. 10.History of hepatitis C. 11.History of degenerative joint disease and chronic cervical and back pain. 12.History of Methicillin-resistant Staphylococcus aureus. 13.History attention deficit disorder, attention deficit hyperactivity disorder. 14.History anxiety, depression. RECOMMENDATIONS AND DISCUSSION: Recommend to continue current medications. Continue with symptomatic treatment. Otherwise at this time I would recommend continue with current medications. Continue with symptomatic treatment. Psychiatry input appreciated. The labs are acceptable. I would recommend to continue to monitor. Guarded prognosis because of multiple complex medical issues. Further recommendations to follow. MMODL / IJN: [id number] / MTDD
--- NOTE | 2017-10-06 06:08 | CONS ---
CONSULTATION DATE OF SERVICE: 10/05/2017 CHIEF COMPLAINT: Altered mental status. HISTORY OF PRESENT ILLNESS: The patient is a 56-year-old female, who is being evaluated by the neurology service per the request of Dr. Aguilar for altered mental status. The patient was brought into [facility] Emergency Room with police escort as she was quite confused and combative. According to the chart, the patient had a recent admission for acute bronchial asthma and was treated for this and improved and was discharged home only to return yesterday with these new symptoms. There was no fever noted. There was concerns for possible drug overdose. Her urine drug screen was positive for tricyclic antidepressants and benzodiazepine. Her home medications include Singulair, hydrocodone, Neurontin, doxepin, Adderall, baclofen, and Ventolin. The patient was given Ativan and she did calm down. At the time of my evaluation, she is sleeping and is difficult to arouse, but is arousable. A CT scan of the brain was done, which showed no intracranial abnormalities. Her CBC was normal. Her comprehensive metabolic profile was normal except for elevated BUN at 25. Her cardiac enzymes and urinalysis were normal. PAST MEDICAL HISTORY: Asthma, chronic obstructive pulmonary disease, fibromyalgia, degenerative joint disease, hepatitis C. FAMILY HISTORY: Positive for cancer. SOCIAL HISTORY: Unknown. HOME MEDICATIONS: Reviewed in the chart. ALLERGIES: SHELLFISH. REVIEW OF SYSTEMS: Unable to obtain due to mental status changes. PHYSICAL EXAM: Vital signs show a temperature of 96.4, pulse 85, respiration 18, blood pressure 138/75. GENERAL APPEARANCE: The patient is a well-developed female who is quite drowsy but is arousable. HEENT: Normocephalic, atraumatic, no facial asymmetry is seen. NECK: Supple with no masses felt. CARDIOVASCULAR: Regular rate and rhythm. ABDOMEN: Nontender, nondistended. Extremities showed no edema or clubbing. NEUROLOGICAL EXAM: The patient is drowsy but arousable. She is oriented to person only. She thought she was at home and thought it was the year 2017. She does move all 4 extremities to command with no obvious weakness noticed. Sensory exam appears to be normal to light touch in all 4 extremities. No obvious facial asymmetry is seen on cranial nerve testing. IMPRESSION: 1. Altered mental status. 2. Acute encephalopathy, likely toxic. 3. Chronic pain syndrome. 4. Chronic obstructive pulmonary disease. RECOMMENDATION: The patient is quite drowsy and is a very poor historian at this time. The exact history as far as the progression of the confusion is unknown. She is afebrile and has no nuchal rigidity on my examination. Her CBC was normal as well. There is concerns for possible accidental versus intentional overdose with some of her home medications. I will consult Psychiatry to evaluate and treat. An EEG has been ordered. I did review her CT scan of the brain, which was normal. I do recommend IV hydration. The patient recently pulled her IV. I recommend that this be restarted. I also recommend holding hydrocodone, baclofen, and Neurontin at this time. Continue neuro checks. I will continue to follow with you. Further recommendations to follow. Thank you for allowing me to participate in the care of your patient. If you have any questions, please feel free to contact me. MEÑO / ELLI: [id number] /
[2017-10-06 07:54] VITALS: BP 144/91; PULSE 75; RESP 20; TEMP 98
[2017-10-06] MEDS: HEPARIN SODIUM,PORCINE 5,000 UNIT/ML 1 ML VIAL SQ SCH (08:17)
[2017-10-06] MEDS: OLANZapine 2.5 MG TAB PO SCH (08:17)
[2017-10-06] MEDS: ACETAMINOPHEN TAB 325 MG TAB PO PRN (09:20)
--- NOTE | 2017-10-07 06:54 | DS ---
DISCHARGE SUMMARY DATE OF SERVICE: 10/06/2017. FINAL DIAGNOSES: 1. Change in mental status, acute metabolic encephalopathy, multifactorial. 2. Rule out substance abuse. 3. Rule out psychosis. 4. Involuntary movements of uncertain etiology. 5. Overdose. 6. Rule out gabapentin toxicity. 7. History of asthma. 8. History of chronic obstructive pulmonary disease. 9. History of fibromyalgia. 10.History of degenerative joint disease. 11.History of pneumonia. 12.History hepatitis C. 13.History of MRSA. HISTORY OF THE PRESENT ILLNESS: This 56-year-old woman with a past medical history of multiple medical problems was admitted with history of change in mental status and confusion with possibility of drug overdose considered but several hematology parameters are negative at this time. The chloride is 110 and BUN is 25, bilirubin is 0.3, and alk phos is 129. The patient was seen by Psychiatry and recommended inpatient psych facility. The patient will be transferred to psych floor in stable condition with guarded prognosis. The psych medications are: 1. Albuterol q.i.d. p.r.n. 2. Gabapentin 800 mg p.o. t.i.d. MMVANESSAL / CECELIAN: [id number] / MTDD
== END 2017-10-06 12:35 ==
LOC: EC 15:06 → 6SEL 17:10 → 4MS4W 10-06 03:25
PROVIDERS: ADMIT Hospitalist; ATTEND Hospitalist
DX: R41.82 Altered mental status, unspecified (principal); G93.41 Metabolic encephalopathy; G89.4 Chronic pain syndrome; M54.9 Dorsalgia, unspecified; M54.2 Cervicalgia; R47.81 Slurred speech; G25.9 Extrapyramidal and movement disorder, unspecified; J44.9 Chronic obstructive pulmonary disease, unspecified; M79.7 Fibromyalgia; M19.90 Unspecified osteoarthritis, unspecified site; Z87.01 Personal history of pneumonia (recurrent); Z86.14 Personal history of Methicillin resistant Staphylococcus aureus infection; F32.9 Major depressive disorder, single episode, unspecified; F90.9 Attention-deficit hyperactivity disorder, unspecified type; F41.9 Anxiety disorder, unspecified; Z86.19 Personal history of other infectious and parasitic diseases; Z79.899 Other long term (current) drug therapy; Z91.013 Allergy to seafood; Z80.1 Family history of malignant neoplasm of trachea, bronchus and lung
CPT/HCPCS: 99285; 96374 ×2; 96376 ×4; 96361 ×6; 96372 ×2; 36415; 93005; 80171; 80053 ×2; 82140; 82550 ×2; 82553 ×2; 84484 ×2; 85025 ×2; 85610; 85730; 81001; 87040; 80306; 80320; 87086; 71046; 70450; G0378 ×3; J2060 ×2; J1630; J1644 ×2

== ENCOUNTER 2017-11-15 17:51 | Inpatient (IN) | payer MEDICARE, OTHER ==
[2017-11-15 19:05] LABS: Basophils # (A) 0.1 k/uL (0-0.2); Basophils % (A) 1 %; Eosinophils # (A) 0.2 k/uL (0-0.7); Eosinophils % (A) 3 %; HCT 42.2 % (34.0-46.0); Lymphocytes # (A) 0.8 k/uL (1.0-4.8); Lymphocytes % (A) 14 %; MCH 27.5 pg (25.0-35.0); MCHC 33.1 g/dL (31.0-37.0); MCV 83.1 fL (80.0-100.0); Mean Platelet Volume 7.7; Monocytes # (A) 0.7 k/uL (0-1.0); Monocytes % (A) 12 %; Neutrophils # (A) 3.8 k/uL (1.3-7.7); Neutrophils % (A) 66 %; Platelet Count 279 k/uL (150-450); RBC 5.07 m/uL (3.80-5.40); RDW 13.9 % (11.5-15.5); WBC 5.7 k/uL (3.8-10.6)
[2017-11-15 19:10] LABS: Anion Gap 15 mmol/L; Blood Urea Nitrogen 35 mg/dL (7-17); Calcium 8.9 mg/dL (8.4-10.2); Carbon Dioxide 20 mmol/L (22-30); Chloride 107 mmol/L (98-107); Glucose 142 mg/dL (74-99); Potassium 3.3 mmol/L (3.5-5.1); Sodium 142 mmol/L (137-145)
[2017-11-15] MEDS ORDERED: IPRATROPIUM 0.5 MG/2.5 ML NEBU INHALATION STA (19:22)
[2017-11-15] MEDS ORDERED: methylPREDNISolone SOD SUCCI 125 MG/2 ML VIAL IV STA (19:22)
[2017-11-15] MEDS ORDERED: SODIUM CHLORIDE 0.9% 1,000 ML IV STA (19:22)
[2017-11-15] MEDS ORDERED: ALBUTEROL NEBULIZED 2.5 MG/3 ML INHALATION STA (19:22)
--- NOTE | 2017-11-15 19:55 | ED ---
General Adult HPI - General Chief complaint: Upper Respiratory Infection Stated complaint: SOB Time Seen by Provider: 11/15/17 19:04 Source: patient, RN notes reviewed, old records reviewed Mode of arrival: ambulatory Limitations: no limitations - History of Present Illness Initial comments: This is a 36-year-old female to the ER for cough or congestion, patient has recent diagnosis of asthma COPD emphysema. No history of smoking. Patient was seen at health clinic last week and for evaluation, states her symptoms are progressively worsened. She denies chest pain which is cannot catch her breath. No fevers or travel history no sick contacts - Related Data Home Medications Medication Instructions Recorded Confirmed Albuterol Nebulized [Ventolin 2.5 mg INHALATION RT-Q6H PRN 10/04/17 11/15/17 Nebulized] Baclofen [Lioresal] 10 mg PO TID PRN 11/15/17 11/15/17 Doxepin HCl 50 mg PO HS 11/15/17 11/15/17 Gabapentin [Neurontin] 800 mg PO TID 11/15/17 11/15/17 Montelukast [Singulair] 10 mg PO HS 11/15/17 11/15/17 OLANZapine [ZyPREXA] 10 mg PO HS 11/15/17 11/15/17 Previous Rx's Medication Instructions Recorded FLUoxetine HCL [PROzac] 60 mg PO DAILY #90 cap 10/08/17 Ibuprofen [Motrin] 600 mg PO TID PRN #60 tab 10/08/17 Albuterol Sulfate [Proair Hfa] 1 - 2 puff INHALATION Q4H #1 11/15/17 inhaler Levofloxacin [Levaquin] 750 mg PO DAILY #7 tab 11/15/17 predniSONE 50 mg PO DAILY #5 tab 11/15/17 Allergies Allergy/AdvReac Type Severity Reaction Status Date / Time shellfish derived Allergy Rash/Hives Verified 11/15/17 19:30 Review of Systems ROS Statement: Those systems with pertinent positive or pertinent negative responses have been documented in the HPI. ROS Other: All systems not noted in ROS Statement are negative. Past Medical History Past Medical History: Asthma, COPD, Fibromyalgia, Osteoarthritis (OA), Pneumonia Additional Past Medical History / Comment(s): Hepatitis C with tx and now cured , chronic cervical and back pain, DDD, scoliosis. History of Any Multi-Drug Resistant Organisms: MRSA Date of last positivie culture/infection: 02/19/15 MDRO Source:: Right Foot Past Surgical History: Orthopedic Surgery, Tonsillectomy, Tubal Ligation Additional Past Surgical History / Comment(s): 12/29/16 bronchoscopy with BAL, TOVA SHOULDER,TOVA WRISTS,LT COLLAR BONE, L ovarian cystectomy Past Anesthesia/Blood Transfusion Reactions: No Reported Reaction Past Psychological History: ADD/ADHD, Anxiety, Depression Smoking Status: Never smoker Past Alcohol Use History: Unable to Obtain Past Drug Use History: Unable to Obtain - Past Family History Father Family Medical History: Cancer Additional Family Medical History / Comment(s): Father of LUNG cancer at the age of 69yrs. He was a smoker. Mother Family Medical History: COPD Additional Family Medical History / Comment(s): Mother of COPD at the age of 71 yrs. General Exam Limitations: no limitations General appearance: alert, in no apparent distress Head exam: Present: atraumatic, normocephalic, normal inspection Eye exam: Present: normal appearance, PERRL, EOMI. Absent: scleral icterus, conjunctival injection, periorbital swelling ENT exam: Present: normal exam, mucous membranes moist Neck exam: Present: normal inspection. Absent: tenderness, meningismus, lymphadenopathy Respiratory exam: Present: normal lung sounds bilaterally, wheezes, accessory muscle use, decreased breath sounds, prolonged expiratory. Absent: respiratory distress, rales, rhonchi, stridor Cardiovascular Exam: Present: normal rhythm, tachycardia, normal heart sounds. Absent: systolic murmur, diastolic murmur, rubs, gallop, clicks GI/Abdominal exam: Present: soft, normal bowel sounds. Absent: distended, tenderness, guarding, rebound, rigid Extremities exam: Present: normal inspection, full ROM, normal capillary refill. Absent: tenderness, pedal edema, joint swelling, calf tenderness Back exam: Present: normal inspection Neurological exam: Present: alert, oriented X3, CN II-XII intact Psychiatric exam: Present: normal affect, normal mood Skin exam: Present: warm, dry, intact, normal color. Absent: rash Course Vital Signs 11/15/17 11/15/17 11/15/17 18:19 20:00 20:10 Temperature 100 F H 99.4 F Pulse Rate 115 H 98 98 Respiratory 20 18 Rate Blood Pressure 117/71 142/67 O2 Sat by Pulse 95 97 Oximetry - Reevaluation(s) Reevaluation #1: 11/15/17 19:55 Patient does have improvement after prolonged breathing treatment Medical Decision Making - Medical Decision Making 56 female the ER for evaluation shortness breath cough congestion, history of COPD recently diagnosed, patient will follow-up with pulmonary, she does not want inpatient hospitalization at this time. Patient be treated appropriately and can be discharged home urged to return if shortness of breath increases - Lab Data Result diagrams: 11/15/17 18:35 11/15/17 18:35 Lab Results 11/15/17 11/15/17 11/15/17 Range/Units 18:19 18:35 18:35 WBC 5.7 (3.8-10.6) k/uL RBC 5.07 (3.80-5.40) m/uL Hgb 14.0 (11.4-16.0) gm/dL Hct 42.2 (34.0-46.0) % MCV 83.1 (80.0-100.0) fL MCH 27.5 (25.0-35.0) pg MCHC 33.1 (31.0-37.0) g/dL RDW 13.9 (11.5-15.5) % Plt Count 279 (150-450) k/uL Neutrophils % 66 % Lymphocytes % 14 % Monocytes % 12 % Eosinophils % 3 % Basophils % 1 % Neutrophils # 3.8 (1.3-7.7) k/uL Lymphocytes # 0.8 L (1.0-4.8) k/uL Monocytes # 0.7 (0-1.0) k/uL Eosinophils # 0.2 (0-0.7) k/uL Basophils # 0.1 (0-0.2) k/uL Sodium 142 (137-145) mmol/L Potassium 3.3 L (3.5-5.1) mmol/L Chloride 107 (98-107) mmol/L Carbon Dioxide 20 L (22-30) mmol/L Anion Gap 15 mmol/L BUN 35 H (7-17) mg/dL Creatinine 1.05 H (0.52-1.04) mg/dL Est GFR (MDRD) Af Amer >60 (>60 ml/min/1.73 sqM) Est GFR (MDRD) Non-Af 54 (>60 ml/min/1.73 sqM) Glucose 142 H (74-99) mg/dL Calcium 8.9 (8.4-10.2) mg/dL Urine Color Urine Appearance (Clear) Urine pH (5.0-8.0) Ur Specific [place] (1.001-1.035) Urine Protein (Negative) Urine Glucose (UA) (Negative) Urine Ketones (Negative) Urine Blood (Negative) Urine Nitrite (Negative) Urine Bilirubin (Negative) Urine Urobilinogen (<2.0) mg/dL Ur Leukocyte Esterase (Negative) Urine RBC (0-5) /hpf Urine WBC (0-5) /hpf Ur Squamous Epith Cells (0-4) /hpf Urine Bacteria (None) /hpf Hyaline Casts (0-2) /lpf Influenza Type A RNA Not Detected (Not Detectd) Influenza Type B (PCR) Not Detected (Not Detectd) 11/15/17 Range/Units 18:35 WBC (3.8-10.6) k/uL RBC (3.80-5.40) m/uL Hgb (11.4-16.0) gm/dL Hct (34.0-46.0) % MCV (80.0-100.0) fL MCH (25.0-35.0) pg MCHC (31.0-37.0) g/dL RDW (11.5-15.5) % Plt Count (150-450) k/uL Neutrophils % % Lymphocytes % % Monocytes % % Eosinophils % % Basophils % % Neutrophils # (1.3-7.7) k/uL Lymphocytes # (1.0-4.8) k/uL Monocytes # (0-1.0) k/uL Eosinophils # (0-0.7) k/uL Basophils # (0-0.2) k/uL Sodium (137-145) mmol/L Potassium (3.5-5.1) mmol/L Chloride (98-107) mmol/L Carbon Dioxide (22-30) mmol/L Anion Gap mmol/L BUN (7-17) mg/dL Creatinine (0.52-1.04) mg/dL Est GFR (MDRD) Af Amer (>60 ml/min/1.73 sqM) Est GFR (MDRD) Non-Af (>60 ml/min/1.73 sqM) Glucose (74-99) mg/dL Calcium (8.4-10.2) mg/dL Urine Color Yellow Urine Appearance Clear (Clear) Urine pH 5.5 (5.0-8.0) Ur Specific [place] 1.019 (1.001-1.035) Urine Protein 1+ H (Negative) Urine Glucose (UA) Negative (Negative) Urine Ketones Negative (Negative) Urine Blood Negative (Negative) Urine Nitrite Negative (Negative) Urine Bilirubin Negative (Negative) Urine Urobilinogen <2.0 (<2.0) mg/dL Ur Leukocyte Esterase Large H (Negative) Urine RBC 2 (0-5) /hpf Urine WBC 35 H (0-5) /hpf Ur Squamous Epith Cells 1 (0-4) /hpf Urine Bacteria Occasional H (None) /hpf Hyaline Casts 3 H (0-2) /lpf Influenza Type A RNA (Not Detectd) Influenza Type B (PCR) (Not Detectd) - Radiology Data Radiology results: report reviewed (Chest x-rays negative), image reviewed Disposition Clinical Impression: COPD exacerbation, Asthmatic bronchitis Disposition: HOME SELF-CARE Condition: Good Instructions: COPD (Chronic Obstructive Pulmonary Disease) (ED) Prescriptions: Albuterol Sulfate [Proair Hfa] 1 - 2 puff INHALATION Q4H #1 inhaler Levofloxacin [Levaquin] 750 mg PO DAILY #7 tab predniSONE 50 mg PO DAILY #5 tab Referrals: None,Stated [Primary Care Provider] - 1-2 days
--- NOTE | 2017-11-15 20:07 | XR ---
EXAMINATION TYPE: XR chest 2V DATE OF EXAM: 11/15/2017 COMPARISON: 10/02/2017 INDICATION: Cough short of breath TECHNIQUE: Frontal and lateral views of the chest are obtained. FINDINGS: The heart size is normal. The pulmonary vasculature is normal. The lungs are clear. IMPRESSION: 1. No acute pulmonary process.
[2017-11-15 20:12] LABS: Appearance,Urine Clear (Clear); Bacteria,Urine Occasional /hpf; Bilirubin,Urine Negative (Negative); Blood,Urine Negative (Negative); Color,Urine Yellow; Glucose,Urine (UA) Negative (Negative); Hyaline Casts,Urine 3 /lpf (0-2); Ketones,Urine Negative (Negative); Leukocyte Esterase,Urine Large (Negative); PH, Urine 5.5 (5.0-8.0); Protein,Urine 1+ (Negative); RBC,Urine 2 /hpf (0-5); Specific Gravity,Urine 1.019 (1.001-1.035); Squamous Epithelial Cell,Urine 1 /hpf (0-4); Urobilinogen,Urine <2.0 mg/dL (<2.0); WBC,Urine 35 /hpf (0-5)
[2017-11-15] MEDS ORDERED: POTASSIUM BICARB-CITRIC ACID 25 MEQ TABLET.EFF PO STA (20:15)
[2017-11-15] MEDS ORDERED: LEVOFLOXACIN 750 MG TAB PO STA (20:18)
[2017-11-15] MEDS ORDERED: MAGNESIUM OXIDE 400 MG TAB PO STA (20:18)
[2017-11-15] MEDS ORDERED: POTASSIUM CHLORIDE ER 20 MEQ TAB.ER PO STA (20:24)
[2017-11-15] MEDS ORDERED: LEVOFLOXACIN 750MG-D5W PMX 750 MG in DEXTROSE/WATER 1 150ML.BAG IVPB STA (20:51)
--- NOTE | 2017-11-15 20:52 | ED ---
Medical Decision Making - Lab Data Result diagrams: 11/15/17 18:35 11/15/17 18:35 Lab Results 11/15/17 11/15/17 11/15/17 Range/Units 18:19 18:35 18:35 WBC 5.7 (3.8-10.6) k/uL RBC 5.07 (3.80-5.40) m/uL Hgb 14.0 (11.4-16.0) gm/dL Hct 42.2 (34.0-46.0) % MCV 83.1 (80.0-100.0) fL MCH 27.5 (25.0-35.0) pg MCHC 33.1 (31.0-37.0) g/dL RDW 13.9 (11.5-15.5) % Plt Count 279 (150-450) k/uL Neutrophils % 66 % Lymphocytes % 14 % Monocytes % 12 % Eosinophils % 3 % Basophils % 1 % Neutrophils # 3.8 (1.3-7.7) k/uL Lymphocytes # 0.8 L (1.0-4.8) k/uL Monocytes # 0.7 (0-1.0) k/uL Eosinophils # 0.2 (0-0.7) k/uL Basophils # 0.1 (0-0.2) k/uL Sodium 142 (137-145) mmol/L Potassium 3.3 L (3.5-5.1) mmol/L Chloride 107 (98-107) mmol/L Carbon Dioxide 20 L (22-30) mmol/L Anion Gap 15 mmol/L BUN 35 H (7-17) mg/dL Creatinine 1.05 H (0.52-1.04) mg/dL Est GFR (MDRD) Af Amer >60 (>60 ml/min/1.73 sqM) Est GFR (MDRD) Non-Af 54 (>60 ml/min/1.73 sqM) Glucose 142 H (74-99) mg/dL Plasma Lactic Acid Gurvinder (0.7-2.0) mmol/L Calcium 8.9 (8.4-10.2) mg/dL NT-Pro-B Natriuret Pep pg/mL Urine Color Urine Appearance (Clear) Urine pH (5.0-8.0) Ur Specific [place] (1.001-1.035) Urine Protein (Negative) Urine Glucose (UA) (Negative) Urine Ketones (Negative) Urine Blood (Negative) Urine Nitrite (Negative) Urine Bilirubin (Negative) Urine Urobilinogen (<2.0) mg/dL Ur Leukocyte Esterase (Negative) Urine RBC (0-5) /hpf Urine WBC (0-5) /hpf Ur Squamous Epith Cells (0-4) /hpf Urine Bacteria (None) /hpf Hyaline Casts (0-2) /lpf Influenza Type A RNA Not Detected (Not Detectd) Influenza Type B (PCR) Not Detected (Not Detectd) 11/15/17 11/15/17 11/15/17 Range/Units 18:35 18:35 20:00 WBC (3.8-10.6) k/uL RBC (3.80-5.40) m/uL Hgb (11.4-16.0) gm/dL Hct (34.0-46.0) % MCV (80.0-100.0) fL MCH (25.0-35.0) pg MCHC (31.0-37.0) g/dL RDW (11.5-15.5) % Plt Count (150-450) k/uL Neutrophils % % Lymphocytes % % Monocytes % % Eosinophils % % Basophils % % Neutrophils # (1.3-7.7) k/uL Lymphocytes # (1.0-4.8) k/uL Monocytes # (0-1.0) k/uL Eosinophils # (0-0.7) k/uL Basophils # (0-0.2) k/uL Sodium (137-145) mmol/L Potassium (3.5-5.1) mmol/L Chloride (98-107) mmol/L Carbon Dioxide (22-30) mmol/L Anion Gap mmol/L BUN (7-17) mg/dL Creatinine (0.52-1.04) mg/dL Est GFR (MDRD) Af Amer (>60 ml/min/1.73 sqM) Est GFR (MDRD) Non-Af (>60 ml/min/1.73 sqM) Glucose (74-99) mg/dL Plasma Lactic Acid Gurvinder 1.3 (0.7-2.0) mmol/L Calcium (8.4-10.2) mg/dL NT-Pro-B Natriuret Pep 18 pg/mL Urine Color Yellow Urine Appearance Clear (Clear) Urine pH 5.5 (5.0-8.0) Ur Specific [place] 1.019 (1.001-1.035) Urine Protein 1+ H (Negative) Urine Glucose (UA) Negative (Negative) Urine Ketones Negative (Negative) Urine Blood Negative (Negative) Urine Nitrite Negative (Negative) Urine Bilirubin Negative (Negative) Urine Urobilinogen <2.0 (<2.0) mg/dL Ur Leukocyte Esterase Large H (Negative) Urine RBC 2 (0-5) /hpf Urine WBC 35 H (0-5) /hpf Ur Squamous Epith Cells 1 (0-4) /hpf Urine Bacteria Occasional H (None) /hpf Hyaline Casts 3 H (0-2) /lpf Influenza Type A RNA (Not Detectd) Influenza Type B (PCR) (Not Detectd) Disposition Clinical Impression: COPD exacerbation, Asthmatic bronchitis, Failure of outpatient treatment Disposition: ADMITTED IP TO THIS HOSP Condition: Good Instructions: COPD (Chronic Obstructive Pulmonary Disease) (ED) Prescriptions: Albuterol Sulfate [Proair Hfa] 1 - 2 puff INHALATION Q4H #1 inhaler Levofloxacin [Levaquin] 750 mg PO DAILY #7 tab predniSONE 50 mg PO DAILY #5 tab Referrals: None,Stated [Primary Care Provider] - 1-2 days
[2017-11-15] MEDS: SODIUM CHLORIDE 0.9% 1,000 ML IV SCH (21:06)
[2017-11-15 23:03] VITALS: BMI 28.4
[2017-11-15] MEDS ORDERED: MONTELUKAST 10 MG TAB PO SCH (23:45)
[2017-11-15] MEDS ORDERED: OLANZapine 10 MG TAB PO SCH (23:45)
[2017-11-15] MEDS ORDERED: DOXEPIN 25 MG CAP PO SCH (23:45)
[2017-11-16] MEDS: GABAPENTIN 400 MG CAP PO SCH ×2 (00:43→08:14)
[2017-11-16] MEDS: methylPREDNISolone SOD SUCCI 125 MG/2 ML VIAL IV SCH ×3 (00:43→13:20)
[2017-11-16] MEDS ORDERED: TEMAZEPAM 15 MG CAP PO PRN (00:55)
--- NOTE | 2017-11-16 01:59 | HP ---
HISTORY AND PHYSICAL DATE OF SERVICE: 11/15/2017. CHIEF CONCERN: Cough and shortness of breath. HISTORY OF PRESENT ILLNESS: This 56-year-old woman with a past medical history of multiple medical problems including history of asthma, COPD, fibromyalgia, DJD, history of pneumonia, hepatitis C which is now cured, history of DJD, ADD, ADHD and anxiety, depression being followed by [facility] in the outpatient setting, not feeling well over the past several days. The patient has having shortness of breath and wheezing. The patient apparently took a course of steroids and because of lack of improvement the patient came to [facility] and admitted to the hospital for further evaluation and treatment. A chest x- ray done on admission showed no evidence of pneumonia. There is no history of fever, rigors or chills. PAST MEDICAL HISTORY: Asthma, COPD, fibromyalgia, DJD, pneumonia, hepatitis C. MEDICATIONS: Prior to admission include: 1. Zyprexa 10 mg q.h.s. 2. Singular 10 mg q.h.s. 3. Motrin 600 mg t.i.d. p.r.n. 4. Neurontin 800 mg b.i.d. 5. Prozac 60 mg p.o. daily. 6. Doxepin 50 mg p.o. q.h.s. 7. Lioresal 10 mg p.o. t.i.d. 8. Ventolin 2.5 q.6h p.r.n. 9. Prednisone 50 mg p.o. daily. 10.Levaquin 750 p.o. daily. 11.ProAir HFA 1-2 puffs q.4h p.r.n. ALLERGIES: SHELLFISH. FAMILY HISTORY: History of cancer in the family. SOCIAL HISTORY: No history of smoking. No history of alcohol intake. REVIEW OF SYSTEMS: ENT: No diminished hearing or vision. Cardiovascular: No angina or palpitations. RESPIRATORY: As mentioned earlier. GI no nausea or vomiting. no dysuria. Nervous System: No numbness or weakness. Allergy/Immunology: No asthma or hayfever. Hematology/Oncology:No history of anemia. Endocrine: As mentioned earlier. Constitutional: As mentioned earlier. Dermatology: Negative. Rheumatology: Negative. Psychiatric: As mentioned earlier. PHYSICAL EXAMINATION: The patient is alert and oriented times three. Pulse 94, blood pressure 150/78, respiration 18, temp 97.2, pulse ox 98% on room air. HEENT: Conjunctivae normal. Oral mucosa is moist. Neck is no jugular venous distention. No carotid bruit. No lymph node enlargement. Cardiovascular system: S1, S2 muffled. Respiratory: Breath sounds diminished in the bases. A few scattered rhonchi and crackles. Bilateral scattered rhonchi and crackles. Expiratory wheezing also present. ABDOMEN: Soft, nontender. No mass palpable. Legs: No edema, no swelling. NERVOUS SYSTEM: Higher functions as mentioned earlier. Moves all four limbs. No focal deficits. Lymphatics: No lymph nodes palpable in the neck, axillae or groin. SKIN: No ulcer, rash or bleeding. LABS: CBC within normal limits, sodium 140, potassium 3.8, creatinine 1.05. UA noted. ASSESSMENT: 1. chronic obstructive pulmonary disease, bronchial asthma acute exacerbation with acute purulent tracheobronchitis with failure of outpatient treatment. 2. Acute urinary tract infection. 3. Hypokalemia. 4. Increased creatinine with mild acute renal failure. 5. Asthma, chronic obstructive pulmonary disease. 6. Fibromyalgia. 7. Degenerative joint disease. 8. History of pneumonia. 9. History hepatitis C. 10.History of degenerative joint disease. 11.History of anxiety, depression. RECOMMENDATIONS AND DISCUSSION: In this 56-year-old woman who presented with multiple complex medical issues, we will monitor the patient closely, continue the current medications, continue symptomatic treatment. Otherwise at this time I recommend IV steroids. Optimize bronchodilator treatments. Otherwise I would also recommend consultation with Dr. Rodriguez and I would also recommend repeat labs also. The prognosis guarded because of multiple complex medical issues. Further recommendations to follow. MMODL / IJN: [id number] /
[2017-11-16] MEDS: ALPRAZolam 0.25 MG TAB PO PRN ×3 (03:27→14:07)
[2017-11-16] MEDS: BACLOFEN 10 MG TAB PO PRN ×2 (05:12→14:40)
[2017-11-16] MEDS: IBUPROFEN 600 MG TAB PO PRN ×2 (05:12→14:07)
[2017-11-16] MEDS ORDERED: IPRATROPIUM-ALBUTEROL 3 ML NEB INHALATION PRN (07:15)
[2017-11-16 07:27] LABS: Glucose,Whole Blood 202 mg/dL (75-99)
[2017-11-16] MEDS ORDERED: PANTOPRAZOLE 40 MG TABLET PO SCH (07:30)
[2017-11-16] MEDS: IPRATROPIUM-ALBUTEROL 3 ML NEB INHALATION SCH ×3 (07:37→15:11)
[2017-11-16] MEDS ORDERED: BUDESONIDE 1 MG/2 ML NEBU INHALATION SCH (08:00)
[2017-11-16] MEDS ORDERED: FORMOTEROL FUMARATE 20 MCG/2 ML NEBU INHALATION SCH (08:00)
[2017-11-16] MEDS: INSULIN ASPART 100 UNIT/ML 1 ML 10 ML VIAL SQ SCH ×2 (08:13→13:47)
[2017-11-16] MEDS: SODIUM CHLORIDE 0.9% 1,000 ML IV SCH (08:23)
[2017-11-16] MEDS ORDERED: INFLUENZA VACCINE (6 MOS+) 60 MCG/0.5 ML SYRINGE IM ONE (08:34)
[2017-11-16] MEDS ORDERED: HEPARIN SODIUM,PORCINE 5,000 UNIT/ML 1 ML VIAL SQ SCH (09:00)
[2017-11-16 12:30] LABS: Glucose,Whole Blood 279 mg/dL (75-99)
--- NOTE | 2017-11-16 13:25 | CDI ---
Last Revision, August 2017 Documentation Clarification Form Date: 11/16/2017 1:17:00 PM From: Funmi Siddiqui Admit Date: 11/16/2017 8:26:00 AM Patient Name: Joelle Min Visit Number: [id number] ATTENTION: The Clinical Documentation Specialists (CDI) and [facility] Coding Staff appreciate your assistance in clarifying documentation. Please respond to the clarification below the line at the bottom and electronically sign. The CDI & [facility] Coding staff will review the response and follow-up if needed. Please note: Queries are made part of the Legal Health Record. If you have any questions, please contact the author of this message via ITS. Dr. Emigdio Aguilar, Asthma and COPD are documented in the H&P. Patient history/risk factors: Asthma, COPD, DJD, pneumonia, Hepatitia C Clinical Indicators: Vital Signs on admission: T 100, P 115, R 20, 117/71, 95% RA Treatment: Medication: Albuterol, pulimcort In your professional opinion, can you please further specify the following, if known? With: Acute Exacerbation Acute lower respiratory infection COPD (specify with or without exacerbation) Chronic obstructive bronchitis Other, please specify Unable to determine Asthma Severity: Mild intermittent Mild persistent Moderate persistent Severe persistent Other, please specify Unable to determine Please continue to document in your progress notes and discharge summary in order to capture severity of illness and risk of mortality. Include clinical findings that support your diagnosis. Acute Exacerbation Mild intermittent MTDD
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
[2017-11-16 15:47] VITALS: BP 111/70; PULSE 82; RESP 20; TEMP 97.7
[2017-11-16 16:18] LABS: Hemoglobin A1C 5.7 % (4.0-6.0)
[2017-11-16] MEDS ORDERED: LEVOFLOXACIN 750MG-D5W PMX 750 MG in DEXTROSE/WATER 1 150ML.BAG IVPB SCH (21:00)
--- NOTE | 2017-11-16 23:39 | DS ---
DISCHARGE SUMMARY DATE OF SERVICE: 11/16/2017. FINAL DIAGNOSES: 1. Chronic obstructive pulmonary disease, bronchial asthma acute exacerbation with acute purulent tracheobronchitis with failure of outpatient treatment. 2. Acute urinary tract infection, present on admission. 3. Hypokalemia. 4. Increased creatinine with mild acute renal failure. 5. Asthma, chronic obstructive pulmonary disease history, chronic intermittent asthma. 6. Fibromyalgia. 7. Degenerative joint disease. 8. History of pneumonia. 9. History of hepatitis C. 10.History of degenerative joint disease. 11.History of anxiety, depression. DISCHARGE DISPOSITION: The patient will be discharged in stable condition with guarded prognosis. HISTORY OF PRESENT ILLNESS: This 56-year-old woman with a past medical history of multiple medical problems was admitted with features of asthma, COPD acute exacerbation, tracheobronchitis, treated symptomatically with bronchodilators, steroids and antibiotics. Patient improved significantly. EXAM: Vitals are stable. CARDIOVASCULAR: S1, S2 muffled. ABDOMEN: Soft. NERVOUS SYSTEM: Nonfocal. Pulmonary saw the patient. DISCHARGE ADVICE AND MEDICATIONS: 1. Diet is cardiac. 2. Activity limited until followup. 3. Follow up with lupus clinic as recommended. 4. Medications will be:. 5. Albuterol nebulized 2.5 q.4h p.r.n. 6. ProAir q.i.d. and p.r.n. 7. Lioresal 10 mg t.i.d. p.r.n. 8. Symbicort 160/4.5 two puffs b.i.d. 9. Doxepin 50 mg q.h.s. 10.Prozac 60 mg p.o. daily. 11.Neurontin 800 mg t.i.d. 12.Motrin 300 mg t.i.d. p.r.n. 13.Levaquin 750 mg p.o. daily for 5 days. 14.Singulair 10 mg q.h.s. 15.Zyprexa 10 mg q.h.s. 16.Protonix 40 mg daily. 17.Prednisone 40 mg daily for 3 days, 30 for 3 days, 20 for 3 days and 10 for 3 days. Once again, the patient will be discharged in stable condition with guarded prognosis. MMODL / IJN: [id number] /
== END 2017-11-16 15:56 | disposition home or self-care (01) | DRG 191 ==
LOC: EC 17:51 → 4MS4W 20:50 → OBSVTOIN 11-16 08:26
PROVIDERS: ADMIT Hospitalist; ATTEND Hospitalist
DX: J44.1 Chronic obstructive pulmonary disease with (acute) exacerbation (principal); J45.21 Mild intermittent asthma with (acute) exacerbation; N17.9 Acute kidney failure, unspecified; M41.9 Scoliosis, unspecified; N39.0 Urinary tract infection, site not specified; J20.9 Acute bronchitis, unspecified; B19.20 Unspecified viral hepatitis C without hepatic coma; E87.6 Hypokalemia; F32.9 Major depressive disorder, single episode, unspecified; F41.9 Anxiety disorder, unspecified; G89.4 Chronic pain syndrome; M19.90 Unspecified osteoarthritis, unspecified site; M79.7 Fibromyalgia; Z79.51 Long term (current) use of inhaled steroids; Z79.899 Other long term (current) drug therapy; Z80.1 Family history of malignant neoplasm of trachea, bronchus and lung; Z82.5 Family history of asthma and other chronic lower respiratory diseases; Z87.01 Personal history of pneumonia (recurrent); Z79.1 Long term (current) use of non-steroidal anti-inflammatories (NSAID); Z79.52 Long term (current) use of systemic steroids; Z91.013 Allergy to seafood
CPT/HCPCS: 36415; 71046; 80048; 81001; 83036; 83605; 83735; 83880; 85025; 87040; 87502; 90686; 93005; 94640; 96361; 96365; 96375; 99285

== ENCOUNTER → 2017-12-04 | Outpatient (CLI) | payer MEDICARE, OTHER ==
--- NOTE | 2017-12-04 13:47 | MR ---
EXAMINATION TYPE: MR lumbar spine wo con DATE OF EXAM: 12/04/2017 COMPARISON: Prior lumbar MRI dated 07/18/2010 HISTORY: Radiculopathy, lumbar region TECHNIQUE: Multiplanar, multisequence images of the lumbar spine were acquired. L1-L2: Normal disc appearance without desiccation. No herniation, protrusion or disc bulging. No ca nal stenosis is present. Foramina are patent bilaterally. L2-L3: Posterior broad-based disc bulge causes minimal anterior mass effect on the thecal sac. No sig nificant central stenosis or encroachment. L3-L4: Broad-based posterior disc bulge causes minimal anterior mass effect on the thecal sac. Some m ild facet arthropathy. No significant foraminal encroachment or central stenosis. L4-L5: Normal disc appearance without desiccation. No herniation, protrusion or disc bulging. No ca nal stenosis is present. Foramina are patent bilaterally. Mild hypertrophic change of the ligamentum flavum compatible with facet arthropathy L5-S1: Normal disc appearance without desiccation. No herniation, protrusion or disc bulging. No ca nal stenosis is present. Foramina are patent bilaterally. Mild facet arthropathy. Lumbar segments are intact. No paraspinal masses are identified. Conus medullaris has a normal appe arance. There is stable alignment of the lumbar spine. Multilevel spondylosis is present. Loss of dis c height signal is present at L3-4, L2-3, endplate discogenic marrow signal changes are present. IMPRESSION: Degenerative disc disease is minimal, mild facet arthropathy is essentially stable
== END | disposition home or self-care (01) ==
LOC: RADMRIMAIN 12:48
PROVIDERS: ATTEND Physical Medicine & Rehabilitation Pain Medicine
DX: M51.16 Intervertebral disc disorders with radiculopathy, lumbar region (principal); M46.96 Unspecified inflammatory spondylopathy, lumbar region
CPT/HCPCS: 72148

== ENCOUNTER 2018-03-18 21:11 | Emergency (ER) | payer MEDICARE, OTHER ==
[2018-03-18] MEDS ORDERED: IPRATROPIUM 0.5 MG/2.5 ML NEBU INHALATION STA (21:31)
[2018-03-18] MEDS ORDERED: SODIUM CHLORIDE 0.9% 1,000 ML IV STA ×2 (21:31)
[2018-03-18] MEDS ORDERED: DEXAMETHASONE SOD PHOSPHATE 10 MG/ML 1 ML VIAL IV STA (21:31)
[2018-03-18] MEDS ORDERED: ALBUTEROL NEBULIZED 2.5 MG/3 ML INHALATION STA (21:31)
[2018-03-18] MEDS ORDERED: AZITHROMYCIN 500 MG in DEXTROSE 5% IN WATER 250 ML IVPB STA ×2 (21:33)
[2018-03-18 21:41] LABS: Basophils % (A) 0 %; Eosinophils # (A) 0.7 k/uL (0-0.7); Eosinophils % (A) 7 %; HCT 38.2 % (34.0-46.0); HGB 12.9 gm/dL (11.4-16.0); Lymphocytes % (A) 21 %; MCH 28.2 pg (25.0-35.0); MCHC 33.7 g/dL (31.0-37.0); MCV 83.6 fL (80.0-100.0); Monocytes # (A) 0.8 k/uL (0-1.0); Monocytes % (A) 8 %; Neutrophils # (A) 5.9 k/uL (1.3-7.7); Neutrophils % (A) 62 %; Platelet Count 244 k/uL (150-450); RBC 4.56 m/uL (3.80-5.40); RDW 13.6 % (11.5-15.5); WBC 9.6 k/uL (3.8-10.6)
[2018-03-18 21:50] LABS: Albumin 4.3 g/dL (3.5-5.0); Calcium 9.6 mg/dL (8.4-10.2); Magnesium 1.5 mg/dL (1.6-2.3); Potassium 3.6 mmol/L (3.5-5.1); Total Bilirubin 0.2 mg/dL (0.2-1.3); Total Protein 6.8 g/dL (6.3-8.2)
[2018-03-18 21:53] LABS: Creatine Kinase 135 U/L (30-135)
[2018-03-18 22:05] LABS: Creatine Kinase MB 1.2 ng/mL (0.0-2.4); Troponin I <0.012 ng/mL (0.000-0.034)
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
--- NOTE | 2018-03-18 22:41 | XR ---
EXAMINATION TYPE: XR chest 1V portable DATE OF EXAM: 03/18/2018 COMPARISON: 12/31/2017 HISTORY: Short of breath TECHNIQUE: Single frontal view of the chest is obtained. FINDINGS: There is no heart failure nor confluent pneumonic infiltrate. Costophrenic angles are jimenez r. There are chest leads. Thoracic aorta is atheromatous. IMPRESSION: No active cardiopulmonary disease. No change.
[2018-03-18] MEDS ORDERED: MAGNESIUM SULFATE-D5W PMX 1 GM in DEXTROSE/WATER 1 100ML.BAG IVPB SCH (23:00)
[2018-03-18] MEDS ORDERED: IPRATROPIUM-ALBUTEROL 3 ML NEB INHALATION STA (23:49)
[2018-03-19 01:05] VITALS: BP 127/59; PULSE 98; RESP 19; TEMP 98.4
== END 2018-03-19 01:08 | disposition home or self-care (01) ==
LOC: EC 21:11
DX: J44.1 Chronic obstructive pulmonary disease with (acute) exacerbation (principal); M79.7 Fibromyalgia; F41.9 Anxiety disorder, unspecified; F32.9 Major depressive disorder, single episode, unspecified; F90.9 Attention-deficit hyperactivity disorder, unspecified type; Z86.14 Personal history of Methicillin resistant Staphylococcus aureus infection; Z79.899 Other long term (current) drug therapy; Z91.013 Allergy to seafood
CPT/HCPCS: 36415; 94640; 94644; 93005; 83880; 80053; 82550; 82553; 83735; 84484; 85025; 85610; 85730; 71045; 99285; 96365; 96366 ×2; 96368; 96375; J1100; J0456; J3475

== ENCOUNTER 2018-11-08 23:53 | Emergency (ER) | payer MEDICARE, OTHER ==
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
[2018-11-09] MEDS ORDERED: CLINDAMYCIN 150 MG CAP PO STA (03:57)
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
[2018-11-09 04:20] VITALS: BP 135/87; PULSE 73; RESP 19; TEMP 97.6
== END 2018-11-09 04:15 | disposition home or self-care (01) ==
LOC: EC 23:53
DX: L08.9 Local infection of the skin and subcutaneous tissue, unspecified (principal); J44.9 Chronic obstructive pulmonary disease, unspecified; F41.9 Anxiety disorder, unspecified; F32.9 Major depressive disorder, single episode, unspecified; Z86.14 Personal history of Methicillin resistant Staphylococcus aureus infection; Z87.01 Personal history of pneumonia (recurrent); Z79.899 Other long term (current) drug therapy; Z91.013 Allergy to seafood
CPT/HCPCS: 99283

== ENCOUNTER 2019-02-08 10:42 | Inpatient (IN) | payer MEDICARE, OTHER ==
[2019-02-08] MEDS ORDERED: IPRATROPIUM-ALBUTEROL 3 ML NEB INHALATION STA (11:18)
[2019-02-08] MEDS ORDERED: ALBUTEROL NEBULIZED 2.5 MG/3 ML INHALATION STA (11:18)
[2019-02-08] MEDS ORDERED: methylPREDNISolone SOD SUCCI 125 MG/2 ML VIAL IV STA (11:18)
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
[2019-02-08 12:19] LABS: Basophils % (A) 1 %; Eosinophils # (A) 0.6 k/uL (0-0.7); Eosinophils % (A) 8 %; HCT 38.4 % (34.0-46.0); HGB 12.6 gm/dL (11.4-16.0); Lymphocytes # (A) 1.9 k/uL (1.0-4.8); Lymphocytes % (A) 23 %; MCHC 32.8 g/dL (31.0-37.0); MCV 85.3 fL (80.0-100.0); Mean Platelet Volume 6.8; Monocytes # (A) 0.7 k/uL (0-1.0); Monocytes % (A) 9 %; Neutrophils # (A) 4.7 k/uL (1.3-7.7); Neutrophils % (A) 57 %; Platelet Count 303 k/uL (150-450); RBC 4.51 m/uL (3.80-5.40); RDW 13.4 % (11.5-15.5); WBC 8.2 k/uL (3.8-10.6)
[2019-02-08 12:25] LABS: ALT 26 U/L (9-52); AST 27 U/L (14-36); Albumin 4.3 g/dL (3.5-5.0); Alkaline Phosphatase 118 U/L (38-126); Anion Gap 11 mmol/L; Blood Urea Nitrogen 21 mg/dL (7-17); Calcium 10.1 mg/dL (8.4-10.2); Carbon Dioxide 22 mmol/L (22-30); Chloride 109 mmol/L (98-107); Glucose 116 mg/dL (74-99); Magnesium 1.9 mg/dL (1.6-2.3); Potassium 4.4 mmol/L (3.5-5.1); Sodium 142 mmol/L (137-145); Total Bilirubin 0.2 mg/dL (0.2-1.3)
--- NOTE | 2019-02-08 12:48 | XR ---
EXAMINATION TYPE: XR chest 2V DATE OF EXAM: 02/08/2019 COMPARISON: 05/23/2018 HISTORY: Shortness of breath TECHNIQUE: Frontal and lateral views of the chest are obtained. FINDINGS: Scattered senescent parenchymal changes noted. No evidence for infiltrate. No evidence for atelectasis. Heart size is stable. Mediastinal structures are stable and grossly unremarkable. No evidence for hilar prominence. Degenerative changes dorsal spine. IMPRESSION: 1. No evidence for acute pulmonary disease.
[2019-02-08] MEDS ORDERED: SODIUM CHLORIDE 0.9% 1,000 ML IV ONE (12:58)
[2019-02-08] MEDS: SODIUM CHLORIDE 0.9% 1,000 ML IV SCH ×2 (13:06→23:17)
[2019-02-08] MEDS ORDERED: IPRATROPIUM-ALBUTEROL 3 ML NEB INHALATION PRN ×2 (14:40→16:38)
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
[2019-02-08] MEDS: BENZONATATE 100 MG CAP PO SCH ×2 (17:14→20:55)
[2019-02-08 18:17] VITALS: BMI 26.7
[2019-02-08] MEDS: INSULIN ASPART (NovoLOG) 100 UNIT/ML VIAL SQ SCH ×2 (18:18→20:55)
[2019-02-08] MEDS: GABAPENTIN 300 MG CAP PO SCH ×2 (18:21→20:55)
[2019-02-08] MEDS: methylPREDNISolone SOD SUCCI 125 MG/2 ML VIAL IV SCH (18:22)
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
[2019-02-08 20:22] LABS: Glucose,Whole Blood 200 mg/dL (75-99)
[2019-02-08] MEDS: FORMOTEROL FUMARATE 20 MCG/2 ML NEBU INHALATION SCH (20:25)
[2019-02-08] MEDS: IPRATROPIUM-ALBUTEROL 3 ML NEB INHALATION SCH ×2 (20:25→23:56)
[2019-02-08] MEDS: BUDESONIDE 1 MG/2 ML NEBU INHALATION SCH (20:25)
[2019-02-08] MEDS: DOXEPIN 25 MG CAP PO SCH (20:54)
[2019-02-08] MEDS: OLANZapine 10 MG TAB PO SCH (20:55)
[2019-02-08] MEDS: guaiFENesin 600 MG TABLET.ER PO SCH (20:55)
[2019-02-08] MEDS: MONTELUKAST 10 MG TAB PO SCH (20:55)
[2019-02-08] MEDS: IBUPROFEN 400 MG TAB PO PRN (23:15)
[2019-02-08] MEDS: ALPRAZolam 0.5 MG TAB PO PRN (23:15)
[2019-02-09] MEDS: methylPREDNISolone SOD SUCCI 125 MG/2 ML VIAL IV SCH ×4 (00:15→17:48)
[2019-02-09] MEDS: IPRATROPIUM-ALBUTEROL 3 ML NEB INHALATION SCH ×5 (03:39→19:30)
[2019-02-09 07:11] LABS: Glucose,Whole Blood 194 mg/dL (75-99)
[2019-02-09] MEDS: BUDESONIDE 1 MG/2 ML NEBU INHALATION SCH ×2 (07:23→19:30)
[2019-02-09] MEDS: FORMOTEROL FUMARATE 20 MCG/2 ML NEBU INHALATION SCH ×2 (07:23→19:30)
[2019-02-09] MEDS: PANTOPRAZOLE 40 MG TABLET PO SCH (08:14)
[2019-02-09] MEDS: LISINOPRIL 10 MG TAB PO SCH (08:14)
[2019-02-09] MEDS: FLUoxetine HCL 20 MG CAP PO SCH (08:14)
[2019-02-09] MEDS: GABAPENTIN 300 MG CAP PO SCH ×4 (08:14→22:18)
[2019-02-09] MEDS: CHOLECALCIFEROL 1,000 UNIT TAB PO SCH (08:14)
[2019-02-09] MEDS: MULTIVITAMINS, THERA 1 EACH TAB PO SCH (08:14)
[2019-02-09] MEDS: INSULIN ASPART (NovoLOG) 100 UNIT/ML VIAL SQ SCH ×4 (08:14→22:19)
[2019-02-09] MEDS: BENZONATATE 100 MG CAP PO SCH ×3 (08:14→22:18)
[2019-02-09] MEDS: FERROUS SULFATE 325 MG TAB PO SCH (08:14)
[2019-02-09] MEDS: guaiFENesin 600 MG TABLET.ER PO SCH ×2 (08:14→22:19)
[2019-02-09] MEDS: SODIUM CHLORIDE 0.9% 1,000 ML IV SCH ×2 (08:15→20:23)
[2019-02-09 12:04] LABS: Glucose,Whole Blood 161 mg/dL (75-99)
--- NOTE | 2019-02-09 12:44 | P.PN ---
Subjective Progress Note Date: 02/09/19 Principal diagnosis: Acute exacerbation of mild intermittent chronic bronchial asthma This is a 58-year-old female with history of mild intermittent asthma, generalized anxiety syndrome, chronic pain syndrome, benign essential hypertension, history of treated hepatitis C infection, patient presented to the ER with 2 days history of increased shortness of breath, nonproductive cough, and wheezing. Patient is maintained normally on DuoNeb updrafts 4 times a day and when necessary, she is also on Singulair, supposed to be on Symbicort but not compliant with it. Claims it doesn't help her much when she takes it. At any rate patient was scheduled to see Dr. Rodriguez in the office today for evaluation of her asthma, but apparently her symptoms became worse and it up in the ER. Chest x-ray showed no evidence of active disease, patient received multiple updraft treatments, did not improve much, hence she was admitted and this consult was initiated. Labs on admission showed a relatively normal CBC normal basic metabolic profile and complete metabolic profile. By the time the patient was admitted to the medical floor, I evaluated the patient, and she seems to be responding well to the present course of bronchodilators including updrafts, steroids, and back on her usual medications. The patient is seen today in 02/09/2019 in follow-up on the regular medical barbara or. She is awake and alert in no acute distress. Resting comfortably in bed. Denies any worsening shortness of breath, cough or congestion. Still somewhat bronchospastic and wheezy. Not quite back to her baseline. She is maintaining O2 saturations in the 90s on room air. She's been afebrile. Hemodynamically stable. Currently maintaining and DuoNeb inhalations, Pulmicort and Perforomist inhalations, Tessalon Perles, IV Solu-Medrol and Singulair. Objective - Vital Signs Vital signs: Vital Signs Temp 97.7 F 02/09/19 05:39 Pulse 76 02/09/19 11:20 Resp 12 02/09/19 05:39 BP 109/62 02/09/19 05:39 Pulse Ox 92 L 02/09/19 05:39 Intake & Output 02/08/19 02/09/19 02/09/19 18:59 06:59 18:59 Weight 77.111 kg Other: # Voids 1 - Exam GENERAL EXAM: Alert, active, comfortable in no apparent distress. HEAD: Normocephalic. EYES: Normal reaction of pupils, equal size. NOSE: Clear with pink turbinates. THROAT: No erythema or exudates. NECK: No masses, no JVD. CHEST: No chest wall deformity. LUNGS: Equal air entry with faint end expiratory wheeze bilaterally. CVS: S1 and S2 normal with no audible murmur, regular rhythm. ABDOMEN: No hepatosplenomegaly, normal bowel sounds, no guarding or rigidity. SPINE: No scoliosis or deformity SKIN: No rashes CENTRAL NERVOUS SYSTEM: No focal deficits, tone is normal in all 4 extremities. EXTREMITIES: There is no peripheral edema. No clubbing, no cyanosis. Peripheral pulses are intact. - Labs CBC & Chem 7: 02/08/19 11:47 02/08/19 11:47 Labs: Abnormal Lab Results - Last 24 Hours (Table) 02/08/19 02/09/19 02/09/19 Range/Units 20:21 07:09 12:03 POC Glucose (mg/dL) 200 H 194 H 161 H (75-99) mg/dL Assessment and Plan Assessment: Impression: #1 Acute exacerbation of mild intermittent chronic bronchial asthma. #2 History of medication noncompliance, including with Symbicort. #3 Fibromyalgia. #4 Degenerative joint disease. #5 History of pneumonia, no evidence of pneumonia at this admission. #6 History of hepatitis C, treated. #7 History of methicillin-resistant staph aureus. #8 History of attention deficit disorder. #9 History of anxiety/depression. Plan: The patient was seen and evaluated by Dr. Rizzo. She is improved today as compared to yesterday. Not quite back to her baseline. We'll continue with the current treatment plan. Probable discharge in the a.m. We'll continue to follow. I, the cosigning physician, performed a history & physical examination of the patient. Lungs sounds with bilateral end expiratory wheeze. Maintaining good O2 saturations in the 90s on room air. I discussed the assessment and plan of care with my nurse practitioner, Stacy Saul. I attest to the above note as dictated by her.
[2019-02-09] MEDS: IBUPROFEN 400 MG TAB PO PRN ×2 (12:47→19:13)
--- NOTE | 2019-02-09 13:34 | P.PN ---
Subjective Progress Note Date: 02/09/19 The patient was seen and examined at the bedside. She notes that her breathing has improved since yesterday though she doesn't feel she is back to her baseline as of yet. She is denying fever, chills, chest pain, cough, or SOB. Objective - Vital Signs Vital signs: Vital Signs Temp 97.7 F 02/09/19 05:39 Pulse 76 02/09/19 11:20 Resp 12 02/09/19 05:39 BP 109/62 02/09/19 05:39 Pulse Ox 92 L 02/09/19 05:39 Intake & Output 02/08/19 02/09/19 02/09/19 18:59 06:59 18:59 Intake Total 800 Balance 800 Weight 77.111 kg Intake: IV 800 Sodium Chloride 0.9% 1, 800 000 ml @ 100 mls/hr IV . Q10H AYO Rx#:[id number] Other: # Voids 1 - Exam General: Non-toxic, in no acute distress, appears stated age, normal weight HEENT: NC/AT, anicteric sclerae, moist conjunctiva, no lid-lag, PERRLA Cardiovascular: S1/S2 wnl, no murmurs, rubs, or gallops Lungs: Expiratory wheezing bilaterally, normal respiratory effort, no accessory muscle use Abdominal: Soft, non-tender, non-distended, no guarding, rebound, or rigidity Skin: Warm, dry Extremities: No edema or contractures Psychiatric: Alert and oriented to person, place and time, appropriate affect Neuro: CN II-XII grossly intact, Strength 5/5 in all 4 extremities, Speech intact, Sensation to light touch grossly intact throughout - Labs CBC & Chem 7: 02/08/19 11:47 02/08/19 11:47 Labs: Abnormal Lab Results - Last 24 Hours (Table) 02/08/19 02/09/19 02/09/19 Range/Units 20:21 07:09 12:03 POC Glucose (mg/dL) 200 H 194 H 161 H (75-99) mg/dL Assessment and Plan Plan: Acute asthma exacerbation -Pulmonary recommendations appreciated -Continue with Solu-Medrol -Continue with DuoNeb's, Perforomist, Pulmicort -C/w Robitussin, Singulair HTN -C/w home medications DVT prophylaxis -Heparin Discussed with: Patient Anticipated discharge date: 02/10/[address]: Home A total of 30 minutes was spent on the care of this complex patient more than 50% of the time was spent in counseling and care coordination.
[2019-02-09] MEDS: VITS A & D-WHITE PET-LANOLIN 5 GM OINT.PACK TOPICAL SCH ×2 (13:55→22:20)
[2019-02-09] MEDS: HEPARIN SODIUM,PORCINE 5,000 UNIT/ML 1 ML VIAL SQ SCH (16:19)
[2019-02-09 16:58] LABS: Glucose,Whole Blood 172 mg/dL (75-99)
[2019-02-09 20:48] LABS: Glucose,Whole Blood 165 mg/dL (75-99)
[2019-02-09] MEDS: OLANZapine 10 MG TAB PO SCH (22:18)
[2019-02-09] MEDS: ALPRAZolam 0.5 MG TAB PO PRN (22:18)
[2019-02-09] MEDS: MONTELUKAST 10 MG TAB PO SCH (22:18)
[2019-02-09] MEDS: DOXEPIN 25 MG CAP PO SCH (22:19)
[2019-02-10] MEDS: methylPREDNISolone SOD SUCCI 125 MG/2 ML VIAL IV SCH ×3 (00:02→12:08)
[2019-02-10] MEDS: IPRATROPIUM-ALBUTEROL 3 ML NEB INHALATION SCH ×4 (00:02→10:55)
[2019-02-10] MEDS: HEPARIN SODIUM,PORCINE 5,000 UNIT/ML 1 ML VIAL SQ SCH ×2 (00:03→09:05)
[2019-02-10] MEDS: HYDROcodone/APAP 5-325MG 1 EACH TAB PO PRN ×2 (00:37→09:11)
[2019-02-10 05:03] VITALS: BP 138/72; RESP 17; TEMP 97.5
[2019-02-10] MEDS: SODIUM CHLORIDE 0.9% 1,000 ML IV SCH (05:21)
[2019-02-10] MEDS: IBUPROFEN 400 MG TAB PO PRN (05:25)
[2019-02-10] MEDS: FORMOTEROL FUMARATE 20 MCG/2 ML NEBU INHALATION SCH (06:59)
[2019-02-10] MEDS: BUDESONIDE 1 MG/2 ML NEBU INHALATION SCH (06:59)
[2019-02-10 07:19] LABS: Glucose,Whole Blood 186 mg/dL (75-99)
[2019-02-10] MEDS: INSULIN ASPART (NovoLOG) 100 UNIT/ML VIAL SQ SCH ×2 (09:05→12:20)
[2019-02-10] MEDS: CHOLECALCIFEROL 1,000 UNIT TAB PO SCH (09:06)
[2019-02-10] MEDS: BENZONATATE 100 MG CAP PO SCH (09:06)
[2019-02-10] MEDS: MULTIVITAMINS, THERA 1 EACH TAB PO SCH (09:06)
[2019-02-10] MEDS: PANTOPRAZOLE 40 MG TABLET PO SCH (09:06)
[2019-02-10] MEDS: GABAPENTIN 300 MG CAP PO SCH (09:06)
[2019-02-10] MEDS: VITS A & D-WHITE PET-LANOLIN 5 GM OINT.PACK TOPICAL SCH (09:06)
[2019-02-10] MEDS: guaiFENesin 600 MG TABLET.ER PO SCH (09:06)
[2019-02-10] MEDS: FLUoxetine HCL 20 MG CAP PO SCH (09:06)
[2019-02-10] MEDS: FERROUS SULFATE 325 MG TAB PO SCH (09:06)
[2019-02-10] MEDS: LISINOPRIL 10 MG TAB PO SCH (09:06)
[2019-02-10 11:10] VITALS: PULSE 88
[2019-02-10 12:15] LABS: Glucose,Whole Blood 158 mg/dL (75-99)
[2019-02-10] MEDS: ALPRAZolam 0.5 MG TAB PO PRN (12:20)
--- NOTE | 2019-02-10 14:41 | P.PN ---
Subjective Progress Note Date: 02/10/19 Principal diagnosis: Acute exacerbation of mild intermittent chronic bronchial asthma This is a 58-year-old female with history of mild intermittent asthma, generalized anxiety syndrome, chronic pain syndrome, benign essential hypertension, history of treated hepatitis C infection, patient presented to the ER with 2 days history of increased shortness of breath, nonproductive cough, and wheezing. Patient is maintained normally on DuoNeb updrafts 4 times a day and when necessary, she is also on Singulair, supposed to be on Symbicort but not compliant with it. Claims it doesn't help her much when she takes it. At any rate patient was scheduled to see Dr. Rodriguez in the office today for evaluation of her asthma, but apparently her symptoms became worse and it up in the ER. Chest x-ray showed no evidence of active disease, patient received multiple updraft treatments, did not improve much, hence she was admitted and this consult was initiated. Labs on admission showed a relatively normal CBC normal basic metabolic profile and complete metabolic profile. By the time the patient was admitted to the medical floor, I evaluated the patient, and she seems to be responding well to the present course of bronchodilators including updrafts, steroids, and back on her usual medications. The patient is seen today in 02/09/2019 in follow-up on the regular medical barbara or. She is awake and alert in no acute distress. Resting comfortably in bed. Denies any worsening shortness of breath, cough or congestion. Still somewhat bronchospastic and wheezy. Not quite back to her baseline. She is maintaining O2 saturations in the 90s on room air. She's been afebrile. Hemodynamically stable. Currently maintaining and DuoNeb inhalations, Pulmicort and Perforomist inhalations, Tessalon Perles, IV Solu-Medrol and Singulair. The patient is seen today 02/10/2019 in follow-up on the regular medical floor. She is currently resting comfortably in bed. Awake and alert in no acute distress. Nearly back to her baseline. Maintaining good O2 saturations in the 90s on room air. She is anxious to go home. Objective - Vital Signs Vital signs: Vital Signs Temp 97.5 F L 02/10/19 05:02 Pulse 88 02/10/19 11:10 Resp 17 02/10/19 05:02 BP 138/72 02/10/19 05:02 Pulse Ox 97 02/10/19 07:01 Intake & Output 02/09/19 02/10/19 02/10/19 18:59 06:59 18:59 Intake Total 1600 800 Balance 1600 800 Intake: IV 800 800 Sodium Chloride 0.9% 1, 800 800 000 ml @ 100 mls/hr IV . Q10H AY[facility] Rx#:[id number] Intake, IV Titration 800 Amount Sodium Chloride 0.9% 1, 800 000 ml @ 100 mls/hr IV . Q10H [facility] Rx#:[id number] Other: # Voids 2 - Exam GENERAL EXAM: Alert, active, comfortable in no apparent distress. On room air. HEAD: Normocephalic. EYES: Normal reaction of pupils, equal size. NOSE: Clear with pink turbinates. THROAT: No erythema or exudates. NECK: No masses, no JVD. CHEST: No chest wall deformity. LUNGS: Equal air entry with faint end expiratory wheeze bilaterally. CVS: S1 and S2 normal with no audible murmur, regular rhythm. ABDOMEN: No hepatosplenomegaly, normal bowel sounds, no guarding or rigidity. SPINE: No scoliosis or deformity SKIN: No rashes CENTRAL NERVOUS SYSTEM: No focal deficits, tone is normal in all 4 extremities. EXTREMITIES: There is no peripheral edema. No clubbing, no cyanosis. Peripheral pulses are intact. - Labs CBC & Chem 7: 02/08/19 11:47 02/08/19 11:47 Labs: Abnormal Lab Results - Last 24 Hours (Table) 02/09/19 02/09/19 02/10/19 Range/Units 16:57 20:47 07:17 POC Glucose (mg/dL) 172 H 165 H 186 H (75-99) mg/dL 02/10/19 Range/Units 11:59 POC Glucose (mg/dL) 158 H (75-99) mg/dL Assessment and Plan Assessment: Impression: #1 Acute exacerbation of mild intermittent chronic bronchial asthma. #2 History of medication noncompliance, including with Symbicort. #3 Fibromyalgia. #4 Degenerative joint disease. #5 History of pneumonia, no evidence of pneumonia at this admission. #6 History of hepatitis C, treated. #7 History of methicillin-resistant staph aureus. #8 History of attention deficit disorder. #9 History of anxiety/depression. Plan: The patient was seen and evaluated by Dr. Rizzo. She is cleared for discharge from pulmonary standpoint. Continue with her current pulmonary medications. Complete prednisone taper. Follow-up in our office in 1-2 weeks' time. She is encouraged to call sooner with any recurrence of symptoms or any other questions or concerns. I, the cosigning physician, performed a history & physical examination of the patient. Lungs sounds with bilateral end expiratory wheeze. Maintaining good O2 saturations in the 90s on room air. I discussed the assessment and plan of care with my nurse practitioner, Stacy Saul. I attest to the above note as dictated by her.
--- NOTE | 2019-02-10 19:47 | P.DS ---
Providers Date of admission: 02/09/19 09:17 Expected date of discharge: 02/10/19 Attending physician: Ronald Melo MD Consults: 02/08/19 14:42 Consult Physician Stat Consulting Provider: Red Rodriguez Consult Reason/Comments: Status asthmaticus Do you want consulting provider notified?: Yes Primary care physician: [facility] Course: Patient is a 58-year-old female with a past medical history of asthma, hypertension, abnormality, and bipolar disorder presented to the ED for shortness of breath with nonproductive cough. The patient had denied fever or chills. The patient had reported multiple uses of her inhalers without significant relief. The patient underwent an extensive evaluation in the ED and was started on IV steroids and DuoNeb's and was subsequently admitted to the medicine service for further management. Pulmonary was consulted and recommendations were appreciated. The patient's breathing gradually improved and she was subsequently cleared for discharge from pulmonary. She was seen and examined at the bedside on the day of discharge. She was in good spirits and noted that her breathing has improved significantly and she feels as though she is asked her baseline. She denied fever, chills, nausea, vomiting, diaphoresis, or chest pain. Physical Examination General: Non-toxic, in no acute distress, appears stated age, normal weight HEENT: NC/AT, anicteric sclerae, moist conjunctiva, no lid-lag, PERRLA Cardiovascular: S1/S2 wnl, no murmurs, rubs, or gallops Lungs: Clear to auscultation, normal respiratory effort, no accessory muscle use Abdominal: Soft, non-tender, non-distended, no guarding, rebound, or rigidity Skin: Warm, dry Extremities: No edema or contractures Psychiatric: Alert and oriented to person, place and time, appropriate affect Neuro: CN II-XII grossly intact, Strength 5/5 in all 4 extremities, Speech intact, Sensation to light touch grossly intact throughout Discharge diagnosis: Acute asthma exacerbation; HTN; Bipolar disorder; Fibromyalgia A total of 40 minutes of time were spent preparing this complex discharge summary. Patient Condition at Discharge: Stable Plan - Discharge Summary Discharge Rx Participant: No New Discharge Prescriptions: New predniSONE 0 mg PO DIRECTED #30 tab Budesonide-Formot 160-4.5 Mcg [Symbicort 160-4.5 Mcg Inhaler] 2 puff INHALATION BID #1 inhaler Continue Doxepin HCl 50 mg PO HS FLUoxetine HCL [PROzac] 80 mg PO DAILY Lisinopril [Zestril] 10 mg PO DAILY OLANZapine [ZyPREXA] 10 mg PO HS Multivitamins, Thera [Multivitamin (formulary)] 1 tab PO DAILY Montelukast [Singulair] 10 mg PO HS Ipratropium-Albuterol Nebulize [Duoneb 0.5 mg-3 mg/3 ml Soln] 3 ml INHALATION RT-Q6H PRN PRN Reason: Shortness Of Breath Ferrous Sulfate [Iron (65 MG Elemental)] 325 mg PO DAILY Cholecalciferol [Vitamin D3 (25 Mcg = 1000 Iu)] 1,000 unit PO DAILY Gabapentin 600 mg PO QID Discharge Medication List Doxepin HCl 50 mg PO HS 11/15/17 [History] FLUoxetine HCL [PROzac] 80 mg PO DAILY 02/25/18 [History] Lisinopril [Zestril] 10 mg PO DAILY 02/25/18 [History] Ipratropium-Albuterol Nebulize [Duoneb 0.5 mg-3 mg/3 ml Soln] 3 ml INHALATION RT-Q6H PRN 03/18/18 [History] Montelukast [Singulair] 10 mg PO HS 03/18/18 [History] Multivitamins, Thera [Multivitamin (formulary)] 1 tab PO DAILY 03/18/18 [History] OLANZapine [ZyPREXA] 10 mg PO HS 03/18/18 [History] Cholecalciferol [Vitamin D3 (25 Mcg = 1000 Iu)] 1,000 unit PO DAILY 02/08/19 [History] Ferrous Sulfate [Iron (65 MG Elemental)] 325 mg PO DAILY 02/08/19 [History] Gabapentin 600 mg PO QID 02/08/19 [History] Budesonide-Formot 160-4.5 Mcg [Symbicort 160-4.5 Mcg Inhaler] 2 puff INHALATION BID #1 inhaler 02/10/19 [Rx] predniSONE 0 mg PO DIRECTED #30 tab 02/10/19 [Rx] Follow up Appointment(s)/Referral(s): Aristides Rizzo MD [STAFF PHYSICIAN] - 02/20/19 10:00 am [facility] [Primary Care Provider] - 1-2 days (call the office to set up appt) Patient Instructions/Handouts: Asthma (DC) Discharge Disposition: HOME SELF-CARE
== END 2019-02-10 13:00 | disposition home or self-care (01) | DRG 202 ==
LOC: EC 10:42 → 4MS4W 14:54 → OBSVTOIN 02-09 09:17
PROVIDERS: ADMIT Family Medicine; ATTEND Family Medicine
DX: J45.22 Mild intermittent asthma with status asthmaticus (principal); J44.1 Chronic obstructive pulmonary disease with (acute) exacerbation; J20.8 Acute bronchitis due to other specified organisms; M41.9 Scoliosis, unspecified; I10 Essential (primary) hypertension; M19.90 Unspecified osteoarthritis, unspecified site; G89.4 Chronic pain syndrome; M79.7 Fibromyalgia; F90.9 Attention-deficit hyperactivity disorder, unspecified type; F41.1 Generalized anxiety disorder; F31.9 Bipolar disorder, unspecified; M50.30 Other cervical disc degeneration, unspecified cervical region; M54.9 Dorsalgia, unspecified; T48.6X6A Underdosing of antiasthmatics, initial encounter; Z91.128 Patient's intentional underdosing of medication regimen for other reason; Z87.01 Personal history of pneumonia (recurrent); Z79.899 Other long term (current) drug therapy; Z86.19 Personal history of other infectious and parasitic diseases; Z86.14 Personal history of Methicillin resistant Staphylococcus aureus infection; Z98.51 Tubal ligation status; Z91.041 Radiographic dye allergy status; Z91.013 Allergy to seafood; Z98.890 Other specified postprocedural states; Z80.1 Family history of malignant neoplasm of trachea, bronchus and lung; Z81.2 Family history of tobacco abuse and dependence; Z82.5 Family history of asthma and other chronic lower respiratory diseases
CPT/HCPCS: 36415; 71046; 80053; 83735; 84484; 85025; 93005; 94640; 94760; 96361; 96374; 99285